=== PATIENT | female | born 1960 | race Caucasian/White ===

== ENCOUNTER 2017-03-03 17:35 | Inpatient (IN) | payer MEDICARE, OTHER ==
[2017-03-03] MEDS ORDERED: HYDROmorphone 1 MG/ML Syringe IVPUSH ONE (20:19)
[2017-03-03] MEDS ORDERED: Ondansetron 4 MG/2 ML SDV IVPUSH ONE (20:20)
[2017-03-03] MEDS ORDERED: Sodium Chloride 0.9% 1,000 ML IV SCH (20:30)
[2017-03-03] MEDS ORDERED: Morphine 4 MG/ML Syringe IVPUSH ONE ×2 (20:50→22:00)
--- NOTE | 2017-03-03 21:50 | EDM.PDOC ---
ED HPI GENERAL MEDICAL PROBLEM - General Chief Complaint: Gastrointestinal Problem Stated Complaint: VOMITING Time Seen by Provider: 03/03/17 18:40 Source of Information: Reports: Patient History Limitations: Reports: No Limitations - History of Present Illness INITIAL COMMENTS - FREE TEXT/NARRATIVE: History of present illness: [56-year-old female is presenting with abdominal pain nausea vomiting. This been going on for several days. She apparently has had a history of pancreatitis and states she feels like she is having a flareup of pancreatitis. He gives a history of having a Addison-en-Y and 1992 and a subsequent limb procedure from that Addison-en-Y and then he limb takedown in 2002. Since then she states she's not had any trouble as far as that surgery. She's had no fevers or chills cough cold symptoms no chest pain or shortness of breath no lower extremity pain and no dysuria.] Review of systems: As per history of present illness and below otherwise all systems reviewed and negative. Past medical history: As per history of present illness and as reviewed below otherwise noncontributory. Surgical history: As per history of present illness and as reviewed below otherwise noncontributory. Social history: No reported history of drug or alcohol abuse. Family history: As per history of present illness and as reviewed below otherwise noncontributory. Physical exam: HEENT: Atraumatic, normocephalic, pupils reactive, negative for conjunctival pallor or scleral icterus, mucous membranes moist, throat clear, neck supple, nontender, trachea midline. Lungs: Clear to auscultation, breath sounds equal bilaterally, chest nontender. Heart: S1S2, regular, negative for clicks, rubs, or JVD. Abdomen: She has tenderness to palpation across the epigastrium with hypoactive bowel sounds to masses appreciated Pelvis: Stable nontender. Genitourinary: Deferred. Rectal: Deferred. Extremities: Atraumatic, negative for cords or calf pain. Neurovascular unremarkable. Neuro: Awake, alert, oriented. Cranial nerves II through XII unremarkable. Cerebellum unremarkable. Motor and sensory unremarkable throughout. Exam nonfocal. Diagnostics: [CBC complete metabolic panel lipase and amylase and UA are unremarkable. Abdominal CT is showing a probable obstruction of one of the limbs from her Addison -en-Y.] Therapeutics: [She's received IV fluids IV morphine and IV Zofran] Impression: [Obstruction of limb of Addison-en-Y] Plan: [I spoke with Dr. Jordon Christian patient will be admitted for IV fluids and NG suction [employer] pump and then we need to get records from [place] etc. from her prior surgeries so we know exactly what was done.] Definitive disposition and diagnosis as appropriate pending reevaluation and review of above. left abdomen Pain Score (Numeric/FACES): 8 - Related Data Allergies Allergy/AdvReac Type Severity Reaction Status Date / Time nabumetone [From Relafen] Allergy Severe Anaphylactic Verified 03/03/17 18:55 Shock diclofenac potassium Allergy Unknown Anaphylactic Verified 03/03/17 18:55 [From Cataflam] Shock duloxetine HCl Allergy Unknown Anaphylactic Verified 03/03/17 18:55 [From Cymbalta] Shock hydromorphone HCl Allergy Unknown Anaphylactic Verified 03/03/17 18:55 [From Dilaudid] Shock prochlorperazine edisylate Allergy Unknown Anaphylactic Verified 03/03/17 18:55 [From Compazine] Shock prochlorperazine maleate Allergy Unknown Anaphylactic Verified 03/03/17 18:55 [From Compazine] Shock rofecoxib [From Vioxx] Allergy Unknown Anaphylactic Verified 03/03/17 18:55 Shock diclofenac [From Cataflam] Allergy Hives Verified 03/03/17 18:55 peach Allergy Vomiting Verified 03/03/17 18:55 Home Meds: Home Meds Aspirin 325 mg PO DAILY 03/20/13 [History] Carvedilol [Coreg] 12.5 mg PO BID 03/20/13 [History] Cyanocobalamin (Vitamin B-12) [Vitamin B-12] 1 ml IM ASDIRECTED 03/20/13 [ History] Cyclobenzaprine HCl [Flexeril] 10 mg PO TID 03/20/13 [History] Gabapentin [Gralise] 900 mg PO TID 03/20/13 [History] Levothyroxine 75 mcg PO DAILY 03/20/13 [History] Lidocaine [Lidoderm] 1 patch TOP Q12H 03/20/13 [History] Lisinopril [Prinivil] 2.5 mg PO BID 03/20/13 [History] Montelukast [Singulair] 10 mg PO DAILY 03/20/13 [History] Ranitidine [Zantac] 75 mg PO BID 03/20/13 [History] Sertraline [Zoloft] 100 mg PO BEDTIME 03/20/13 [History] Ursodiol [Actigal] 100 mg PO BID 03/20/13 [History] hydrOXYzine Pamoate [Vistaril] 50 mg PO Q4HR 03/20/13 [History] Cholecalciferol (Vitamin D3) [Vitamin D3] 1,000 units PO BID 04/28/16 [History] Ergocalciferol (Vitamin D2) [Vitamin D2] 50,000 units PO ASDIRECTED 04/28/16 [ History] Fluticasone/Salmeterol [Advair 250-50 Diskus] 1 puff INH BID 04/28/16 [History] Hydrocodone/Acetaminophen [Hydrocodon-Acetaminophen 5-325] 0.5 tab PO BID [History] Vitamin A Palmitate [Aquasol A] 100,000 unit IM ASDIRECTED 03/03/17 [History] traMADol [Ultram] 50 mg PO QID PRN 03/03/17 [History] Past Medical History HEENT History: Reports: Allergic Rhinitis, Impaired Vision Cardiovascular History: Reports: Cardiomyopathy Respiratory History: Reports: Asthma Gastrointestinal History: Reports: Bowel Obstruction, Pancreatitis Other Gastrointestinal History: crohns Genitourinary History: Reports: None CHANNELER History: Reports: , Spontaneous Musculoskeletal History: Reports: Back Pain, Chronic, Fibromyalgia Neurological History: Reports: Concussion, Migraines Psychiatric History: Reports: Anxiety, Depression Endocrine/Metabolic History: Reports: Hypothyroidism Hematologic History: Reports: B12 Deficiency Immunologic History: Reports: None Oncologic (Cancer) History: Reports: None Dermatologic History: Reports: Other (See Below) Other Dermatologic History: itchy, dry skin - Infectious Disease History Infectious Disease History: Reports: Chicken Pox - Past Surgical History HEENT Surgical History: Reports: Other (See Below) Other HEENT Surgeries/Procedures: trabeculectomy bilateral eyes for glaucoma. brow and eye lift Cardiovascular Surgical History: Reports: None Respiratory Surgical History: Reports: None GI Surgical History: Reports: Bariatric Procedure, Cholecystectomy, Colonoscopy , Hernia Repair/Other Female Surgical History: Reports: None Endocrine Surgical History: Reports: None Neurological Surgical History: Reports: Spinal Fusion, Other (See Below) Other Neurological Surgeries/Procedures: L1-S1 Musculoskeletal Surgical History: Reports: None Oncologic Surgical History: Reports: None Dermatological Surgical History: Reports: None Social & Family History - Tobacco Use Smoking Status *Q: Never Smoker Years of Tobacco use: 3 Used Tobacco, but Quit: Yes Month Tobacco Last Used: Second Hand Smoke Exposure: No - Caffeine Use Caffeine Use: Reports: Coffee, Soda - Alcohol Use Days Per Week of Alcohol Use: 0 - Recreational Drug Use Recreational Drug Use: No ED ROS GENERAL - Review of Systems Review Of Systems: ROS reveals no pertinent complaints other than HPI. ED EXAM, GENERAL - Physical Exam Exam: See Below Course - Vital Signs Last Recorded V/S: Last Vital Signs Temp 36.7 C 03/03/17 21:42 Pulse 68 03/03/17 21:42 Resp 17 03/03/17 21:42 BP 150/86 H 03/03/17 21:42 Pulse Ox 98 03/03/17 21:42 - Orders/Labs/Meds Orders: Active Orders 24 hr Category Date Time Status Abdomen Pelvis wo Cont [CT] Stat Exams 03/03/17 20:18 Taken Sodium Chloride 0.9% [Normal Saline] 1,000 ml Med 03/03/17 20:30 Active IV ASDIRECTED Medication Orders Sodium Chloride (Normal Saline) 1,000 mls @ 500 mls/hr IV ASDIRECTED [facility]ONT Last Admin: 03/03/17 20:39 Dose: 500 mls/hr Labs: Laboratory Tests 03/03/17 03/03/17 03/03/17 Range/Units 20:29 20:29 20:29 WBC 5.2 (4.5-11.0) K/uL RBC 4.17 (3.30-5.50) M/uL Hgb 11.7 L (12.0-15.0) g/dL Hct 36.9 (36.0-48.0) % MCV 89 (80-98) fL MCH 28 (27-31) pg MCHC 32 (32-36) % Plt Count 237 (150-400) K/uL Neut % (Auto) 46 (36-66) % Lymph % (Auto) 43 (24-44) % [place] % (Auto) 8 H (2-6) % Eos % (Auto) 2 (2-4) % Baso % (Auto) 1 (0-1) % Sodium 143 (140-148) mmol/L Potassium 3.9 (3.6-5.2) mmol/L Chloride 108 (100-108) mmol/L Carbon Dioxide 30 (21-32) mmol/L Anion Gap 5.1 (5.0-14.0) mmol/L BUN 12 (7-18) mg/dL Creatinine 0.9 (0.6-1.0) mg/dL Est Cr Clr Drug Dosing 74.68 mL/min Estimated GFR (MDRD) > 60 (>60) Glucose 114 H (74-106) mg/dL Lactic Acid 1.0 (0.4-2.0) mmol/L Calcium 8.2 L (8.5-10.1) mg/dL Total Bilirubin 0.6 (0.2-1.0) mg/dL AST 36 (15-37) U/L ALT 41 (12-78) U/L Alkaline Phosphatase 116 (46-116) U/L C-Reactive Protein 0.03 (0.0-0.3) mg/dL Total Protein 6.8 (6.4-8.2) g/dL Albumin 3.0 L (3.4-5.0) g/dL Globulin 3.8 H (2.3-3.5) g/dL Albumin/Globulin Ratio 0.8 L (1.2-2.2) Amylase 107 (25-115) U/L Lipase 131 (73-393) U/L Urine Color Urine Appearance Urine pH (4.5-8.0) Ur Specific [place] (1.008-1.030) Urine Protein (NEGATIVE) mg/dL Urine Glucose (UA) (NEGATIVE) mg/dL Urine Ketones (NEGATIVE) mg/dL Urine Occult Blood (NEGATIVE) Urine Nitrite (NEGATIVE) Urine Bilirubin (NEGATIVE) Urine Urobilinogen (NORMAL) mg/dL Ur Leukocyte Esterase (NEGATIVE) Urine RBC (0-5) Urine WBC (0-5) Ur Epithelial Cells Amorphous Sediment Urine Bacteria Urine Mucus 03/03/17 Range/Units 20:31 WBC (4.5-11.0) K/uL RBC (3.30-5.50) M/uL Hgb (12.0-15.0) g/dL Hct (36.0-48.0) % MCV (80-98) fL MCH (27-31) pg MCHC (32-36) % Plt Count (150-400) K/uL Neut % (Auto) (36-66) % Lymph % (Auto) (24-44) % [place] % (Auto) (2-6) % Eos % (Auto) (2-4) % Baso % (Auto) (0-1) % Sodium (140-148) mmol/L Potassium (3.6-5.2) mmol/L Chloride (100-108) mmol/L Carbon Dioxide (21-32) mmol/L Anion Gap (5.0-14.0) mmol/L BUN (7-18) mg/dL Creatinine (0.6-1.0) mg/dL Est Cr Clr Drug Dosing mL/min Estimated GFR (MDRD) (>60) Glucose (74-106) mg/dL Lactic Acid (0.4-2.0) mmol/L Calcium (8.5-10.1) mg/dL Total Bilirubin (0.2-1.0) mg/dL AST (15-37) U/L ALT (12-78) U/L Alkaline Phosphatase (46-116) U/L C-Reactive Protein (0.0-0.3) mg/dL Total Protein (6.4-8.2) g/dL Albumin (3.4-5.0) g/dL Globulin (2.3-3.5) g/dL Albumin/Globulin Ratio (1.2-2.2) Amylase (25-115) U/L Lipase (73-393) U/L Urine Color Yellow Urine Appearance Clear Urine pH 6.0 (4.5-8.0) Ur Specific [place] 1.015 (1.008-1.030) Urine Protein Negative (NEGATIVE) mg/dL Urine Glucose (UA) Normal (NEGATIVE) mg/dL Urine Ketones Negative (NEGATIVE) mg/dL Urine Occult Blood Negative (NEGATIVE) Urine Nitrite Negative (NEGATIVE) Urine Bilirubin Negative (NEGATIVE) Urine Urobilinogen Normal (NORMAL) mg/dL Ur Leukocyte Esterase Negative (NEGATIVE) Urine RBC 0-5 (0-5) Urine WBC 0-5 (0-5) Ur Epithelial Cells Few Amorphous Sediment Few Urine Bacteria Not seen Urine Mucus Few Meds: Medications Generic Name Dose Route Start Last Admin Trade Name Freq PRN Reason Stop Dose Admin Sodium Chloride 1,000 mls @ 500 mls/hr 03/03/17 20:30 03/03/17 20:39 Normal Saline IV 500 mls/hr ASDIRECTED [facility] Administration Discontinued Medications Generic Name Dose Route Start Last Admin Trade Name Xiang PRN Reason Stop Dose Admin Hydromorphone HCl 1 mg 03/03/17 20:19 03/03/17 21:08 Dilaudid IVPUSH 03/03/17 20:20 Not Given ONETIME ONE Morphine Sulfate 4 mg 03/03/17 20:50 03/03/17 21:09 Morphine IVPUSH 03/03/17 20:51 4 mg ONETIME ONE Administration Ondansetron HCl 4 mg 03/03/17 20:20 03/03/17 20:41 Zofran IVPUSH 03/03/17 20:21 4 mg ONETIME ONE Administration Departure - Departure Time of Disposition: 21:48 Disposition: Admitted As Inpatient 68 Condition: Fair Clinical Impression: History of Addison-en-Y gastric bypass Bowel obstruction Qualifiers: Intestinal obstruction type: unspecified Qualified Code(s): K56.60 - Unspecified intestinal obstruction - Discharge Information Referrals: PCP,None [Primary Care Provider] - - My Orders Last 24 Hours: My Active Orders 03/03/17 20:18 Abdomen Pelvis wo Cont [CT] Stat 03/03/17 20:30 Sodium Chloride 0.9% [Normal Saline] 1,000 ml IV ASDIRECTED - Assessment/Plan Last 24 Hours: My Active Orders 03/03/17 20:18 Abdomen Pelvis wo Cont [CT] Stat 03/03/17 20:30 Sodium Chloride 0.9% [Normal Saline] 1,000 ml IV ASDIRECTED
[2017-03-03] MEDS ORDERED: Morphine PF 150 MG/30 ML PCA Syringe IV PRN (22:01)
[2017-03-03] MEDS ORDERED: Naloxone 0.4 MG/ML SDV IVPUSH PRN (22:01)
[2017-03-03] MEDS: Dextrose 5%-Lactated Ringers 1,000 ML IV SCH (23:42)
[2017-03-04] MEDS: Dextrose 5%-Lactated Ringers 1,000 ML IV SCH ×2 (00:36→07:53)
[2017-03-04] MEDS: Ondansetron 4 MG/2 ML SDV IV PRN ×2 (05:56→12:34)
[2017-03-04] MEDS: Metoclopramide 10 MG/2 ML SDV IVPUSH SCH ×3 (09:12→21:19)
[2017-03-04] MEDS: Carvedilol 12.5 MG Tab PO SCH ×2 (11:34→21:11)
[2017-03-04] MEDS: Formoterol/Mometasone 200-5 MCG 8.8 GM Inhaler IH SCH ×2 (11:35→21:10)
[2017-03-04] MEDS: Pantoprazole 40 MG Vial IV SCH (11:36)
[2017-03-04] MEDS: Lisinopril 2.5 MG Tab PO SCH ×2 (11:36→21:15)
[2017-03-04] MEDS: cycloSPORINE Ophth Drops U/D Box of 30 EYEBOTH SCH ×2 (11:36→21:16)
[2017-03-04] MEDS: Gabapentin 300 MG Cap PO SCH ×3 (12:27→21:11)
[2017-03-04] MEDS: Levothyroxine 75 MCG Tab PO SCH (12:27)
[2017-03-04] MEDS: Cyclobenzaprine 10 MG Tab PO SCH ×3 (12:28→21:15)
[2017-03-04] MEDS: Lidocaine 5% 700 MG Patch TRDERM SCH (14:57)
[2017-03-04] MEDS: Montelukast 5 MG Tab.Chew PO SCH (21:15)
[2017-03-04] MEDS: traZODone 50 MG Tab PO SCH (21:16)
[2017-03-04] MEDS: Sertraline 50 MG Tab PO SCH (21:16)
[2017-03-05] MEDS: Dextrose 5%-Lactated Ringers 1,000 ML IV SCH ×3 (00:53→21:38)
[2017-03-05] MEDS: Metoclopramide 10 MG/2 ML SDV IVPUSH SCH ×3 (04:16→16:47)
[2017-03-05] MEDS ORDERED: fentaNYL 25 MCG/HR Transdermal Patch TRDERM SCH (07:00)
[2017-03-05] MEDS ORDERED: Magnesium Sulfate/Water 2 GM in Premix Bag 1 BAG IV SCH (08:00)
[2017-03-05] MEDS: Levothyroxine 75 MCG Tab PO SCH (08:10)
[2017-03-05] MEDS: Carvedilol 12.5 MG Tab PO SCH ×2 (08:11→21:36)
[2017-03-05] MEDS: Cyclobenzaprine 10 MG Tab PO SCH ×3 (08:23→21:36)
[2017-03-05] MEDS: Gabapentin 300 MG Cap PO SCH ×3 (08:24→21:34)
[2017-03-05] MEDS: VERIFY FENTANYL PATCH TOP SCH ×2 (08:25→21:33)
[2017-03-05] MEDS: Lisinopril 2.5 MG Tab PO SCH ×2 (08:25→21:36)
[2017-03-05] MEDS: cycloSPORINE Ophth Drops U/D Box of 30 EYEBOTH SCH ×2 (08:26→21:35)
--- NOTE | 2017-03-05 08:28 | PCM.HP ---
H&P History of Present Illness - General Date of Service: 03/05/17 Admit Problem/Dx: Admission Diagnosis/Problem Admission Diagnosis/Problem Abdominal pain Source of Information: Patient History Limitations: Reports: No Limitations - History of Present Illness Onset of Symptoms: Reports: Today Symptom Onset Date: 03/02/17 Duration of Symptoms: Reports: Day(s): (Postprandial pain on going intermittent for several weeks until 03/03/17 when the pain would not resolve. ), Intermittent Location: Reports: Abdomen Quality: Reports: Ache, Throbbing Severity: Severe Improves with: Reports: Medication Worsens with: Reports: Eating Context: Reports: Sick Contact Associated Symptoms: Reports: Nausea/Vomiting left abdomen Pain Score (Numeric/FACES): 3 (with pain medication ) - Related Data Allergies/Adverse Reactions: Allergies Allergy/AdvReac Type Severity Reaction Status Date / Time nabumetone [From Relafen] Allergy Severe Anaphylactic Verified 03/03/17 18:55 Shock diclofenac potassium Allergy Unknown Anaphylactic Verified 03/03/17 18:55 [From Cataflam] Shock duloxetine HCl Allergy Unknown Anaphylactic Verified 03/03/17 18:55 [From Cymbalta] Shock hydromorphone HCl Allergy Unknown Anaphylactic Verified 03/03/17 18:55 [From Dilaudid] Shock prochlorperazine edisylate Allergy Unknown Anaphylactic Verified 03/03/17 18:55 [From Compazine] Shock prochlorperazine maleate Allergy Unknown Anaphylactic Verified 03/03/17 18:55 [From Compazine] Shock rofecoxib [From Vioxx] Allergy Unknown Anaphylactic Verified 03/03/17 18:55 Shock diclofenac [From Cataflam] Allergy Hives Verified 03/03/17 18:55 peach Allergy Vomiting Verified 03/03/17 18:55 Home Medications: Home Meds Aspirin 325 mg PO DAILY 03/20/13 [History] Carvedilol [Coreg] 12.5 mg PO BID 03/20/13 [History] Cyanocobalamin (Vitamin B-12) [Vitamin B-12] 1 ml IM ASDIRECTED 03/20/13 [ History] Cyclobenzaprine HCl [Flexeril] 10 mg PO TID 03/20/13 [History] Gabapentin [Gralise] 900 mg PO TID 03/20/13 [History] Levothyroxine 75 mcg PO DAILY 03/20/13 [History] Lidocaine [Lidoderm] 1 patch TOP Q12H 03/20/13 [History] Lisinopril [Prinivil] 2.5 mg PO BID 03/20/13 [History] Montelukast [Singulair] 10 mg PO DAILY 03/20/13 [History] Ranitidine [Zantac] 75 mg PO BID 03/20/13 [History] Sertraline [Zoloft] 100 mg PO BEDTIME 03/20/13 [History] Ursodiol [Actigal] 100 mg PO BID 03/20/13 [History] hydrOXYzine Pamoate [Vistaril] 50 mg PO Q4HR 03/20/13 [History] Cholecalciferol (Vitamin D3) [Vitamin D3] 1,000 units PO BID 04/28/16 [History] Ergocalciferol (Vitamin D2) [Vitamin D2] 50,000 units PO ASDIRECTED 04/28/16 [ History] Fluticasone/Salmeterol [Advair 250-50 Diskus] 1 puff INH BID 04/28/16 [History] Hydrocodone/Acetaminophen [Hydrocodon-Acetaminophen 5-325] 0.5 tab PO BID [History] Vitamin A Palmitate [Aquasol A] 100,000 unit IM ASDIRECTED 03/03/17 [History] traMADol [Ultram] 50 mg PO QID PRN 03/03/17 [History] Albuterol [Proventil HFA] 2 puff INH BID PRN 03/04/17 [History] Ascorbic Acid [Vitamin C] 1,000 mg PO DAILY 03/04/17 [History] Calcium Carbonate/Vitamin D3 [Os-Uvaldo 500+D] 1 each PO TID 03/04/17 [History] Ferrous Sulfate [Iron] 325 mg PO BID 03/04/17 [History] Fluticasone Propionate [Flonase] 1 spray NASBOTH DAILY 03/04/17 [History] Furosemide [Lasix] 20 - 40 mg PO DAILY PRN 03/04/17 [History] Nitroglycerin 0.4 mg SL ASDIRECTED PRN 03/04/17 [History] Sennosides [Senokot] 8.6 mg PO BID 03/04/17 [History] cycloSPORINE [Restasis] 1 drop EYEBOTH BID 03/04/17 [History] traZODone 50 mg PO BEDTIME PRN 03/04/17 [History] Past Medical History HEENT History: Reports: Allergic Rhinitis, Impaired Vision Cardiovascular History: Reports: Cardiomyopathy Respiratory History: Reports: Asthma Gastrointestinal History: Reports: Bowel Obstruction, Pancreatitis Other Gastrointestinal History: crohns Genitourinary History: Reports: None 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: , 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 Musculoskeletal History: Reports: Back Pain, Chronic, Fibromyalgia, RA Neurological History: Reports: Concussion, Migraines, Reflex Sympathetic Dystrophy Psychiatric History: Reports: Anxiety, Depression Endocrine/Metabolic History: Reports: Hypothyroidism Hematologic History: Reports: B12 Deficiency Immunologic History: Reports: None Oncologic (Cancer) History: Reports: None Dermatologic History: Reports: Other (See Below) Other Dermatologic History: itchy, dry skin - Infectious Disease History Infectious Disease History: Reports: Chicken Pox - Past Surgical History HEENT Surgical History: Reports: Other (See Below) Other HEENT Surgeries/Procedures: trabeculectomy bilateral eyes for glaucoma. brow and eye lift Cardiovascular Surgical History: Reports: None Respiratory Surgical History: Reports: None GI Surgical History: Reports: Bariatric Procedure, Cholecystectomy, Colonoscopy , Hernia Repair/Other Female Surgical History: Reports: None Endocrine Surgical History: Reports: None Neurological Surgical History: Reports: Spinal Fusion, Other (See Below) Other Neurological Surgeries/Procedures: L1-S1 Musculoskeletal Surgical History: Reports: None Oncologic Surgical History: Reports: None Dermatological Surgical History: Reports: None Social & Family History - Family History Family Medical History: Noncontributory - Tobacco Use Smoking Status *Q: Never Smoker Years of Tobacco use: 3 Used Tobacco, but Quit: Yes Month Tobacco Last Used: Second Hand Smoke Exposure: No - Caffeine Use Caffeine Use: Reports: Coffee, Soda Caffeine Use Comment: drinks 2-6 cans of diet coke daily - Alcohol Use Days Per Week of Alcohol Use: 0 - Recreational Drug Use Recreational Drug Use: No H&P Review of Systems - Review of Systems: Review Of Systems: See Below General: Reports: Weakness, Decreased Appetite HEENT: Reports: No Symptoms Pulmonary: Reports: No Symptoms Cardiovascular: Reports: No Symptoms Gastrointestinal: Reports: Abdominal Pain, Decreased Appetite, Nausea Genitourinary: Reports: No Symptoms Musculoskeletal: Reports: No Symptoms Skin: Reports: No Symptoms Psychiatric: Reports: No Symptoms Neurological: Reports: No Symptoms Hematologic/Lymphatic: Reports: No Symptoms Immunologic: Reports: No Symptoms Exam - Exam Exam: See Below - Vital Signs Vital Signs: Last Vital Signs Temp 97.4 F 03/05/17 07:00 Pulse 56 L 03/05/17 03:00 Resp 18 03/05/17 07:00 BP 104/47 L 03/05/17 07:00 Pulse Ox 99 03/05/17 07:09 Weight: 190 lb 8 oz - Exam Quality Assessment: DVT Prophylaxis General: Mild Distress, Sedated HEENT: Conjunctiva Clear, Hearing Intact, Mucosa Moist & [place] Neck: Supple, Trachea Midline Lungs: Clear to Auscultation, Normal Respiratory Effort Cardiovascular: Regular Rate, Regular Rhythm GI/Abdominal Exam: Normal Bowel Sounds, Soft, Tender (in left upper and mid abdominal quadrants ) (Female) Exam: Deferred Rectal (Female) Exam: Deferred Back Exam: Normal Inspection Extremities: Normal Inspection Skin: Warm, Dry, Intact Neurological: Cranial Nerves Intact, Reflexes Equal Bilateral Neuro Extensive - Mental Status: Other (sleepy due to pain medication. Arouses easily and answers questions appropriately ) Neuro Extensive - Motor, Sensory, Reflexes: CN II-XII Intact Psychiatric: Labile Mood - Patient Data Lab Results Last 24 hrs: Laboratory Results - last 24 hr 03/05/17 03/05/17 03/05/17 Range/Units 04:10 04:10 04:10 WBC 5.2 (4.5-11.0) K/uL RBC 3.90 (3.30-5.50) M/uL Hgb 10.9 L (12.0-15.0) g/dL Hct 35.4 L (36.0-48.0) % MCV 91 (80-98) fL MCH 28 (27-31) pg MCHC 31 L (32-36) % Plt Count 213 (150-400) K/uL Sodium 138 L (140-148) mmol/L Potassium 4.1 (3.6-5.2) mmol/L Chloride 105 (100-108) mmol/L Carbon Dioxide 30 (21-32) mmol/L Anion Gap 7.1 (5.0-14.0) mmol/L BUN 9 (7-18) mg/dL Creatinine 0.9 (0.6-1.0) mg/dL Est Cr Clr Drug Dosing 74.68 mL/min Estimated GFR (MDRD) > 60 (>60) Glucose 104 (74-106) mg/dL Hemoglobin A1c 5.5 (4.5-6.2) % Calcium 8.0 L (8.5-10.1) mg/dL Phosphorus 5.0 H (2.5-4.9) mg/dL Magnesium 1.5 L (1.8-2.4) mg/dL Ferritin 14 (8-388) ng/ml Total Bilirubin 0.9 (0.2-1.0) mg/dL AST 23 (15-37) U/L ALT 33 (12-78) U/L Alkaline Phosphatase 124 H (46-116) U/L Total Protein 6.1 L (6.4-8.2) g/dL Albumin 2.8 L (3.4-5.0) g/dL Globulin 3.3 (2.3-3.5) g/dL Albumin/Globulin Ratio 0.9 L (1.2-2.2) Vitamin B12 264 (193-986) pg/ml Folate 17.2 (8.6-58.9) ng/ml TSH, Ultra Sensitive 2.225 (0.358-3.740) uIU/mL Result Diagrams: 03/05/17 04:10 03/05/17 04:10 *Q Meaningful Use (ADM) - VTE *Q VTE Criteria *Q: - Stroke *Q Stroke Criteria *Q: - AMI *Q AMI Criteria *Q: - Problem List (1) Low ferritin level SNOMED Code(s): 158538062 ICD Code: R79.0 - ABNORMAL LEVEL OF BLOOD MINERAL Status: Acute Current Visit: Yes (2) History of Addison-en-Y gastric bypass SNOMED Code(s): 898697934, 252713873 ICD Code: Z98.84 - BARIATRIC SURGERY STATUS Status: Acute Current Visit: Yes (3) Bowel obstruction SNOMED Code(s): 88750815 ICD Code: K56.60 - UNSPECIFIED INTESTINAL OBSTRUCTION Status: Acute Current Visit: Yes Qualifiers: Intestinal obstruction type: unspecified Qualified Code(s): K56.60 - Unspecified intestinal obstruction Problem List Initiated/Reviewed/Updated: Yes Orders Last 24hrs: Active Orders 24 hr Category Date Time Status Verify Patient Consent Obtain [RC] ASDIRECTED Care 03/04/17 10:28 Active Clear Liquid Diet [DIET] Diet 03/04/17 Lunch Active Nothing per Oral After Midnight Diet [DIET] Diet 03/05/17 Breakfast Active VITAMIN B-1, THIAMINE, PLASMA [REF] Routine Lab 03/05/17 04:10 Received Albuterol/Ipratropium [DuoNeb 3.0-0.5 MG/3 ML] Med 03/05/17 14:00 Once 3 ml INH ONCALL ONE Carvedilol [Coreg] Med 03/04/17 11:00 Active 12.5 mg PO BID Cyanocobalamin (Vitamin B12) [Vitamin B12] Med 03/05/17 09:00 Once 1,000 mcg IM ONETIME ONE Cyclobenzaprine [Flexeril] Med 03/04/17 12:15 Active 10 mg PO TID Gabapentin [Neurontin] Med 03/04/17 12:15 Active 900 mg PO TID Iron Sucrose Complex [Venofer] 500 mg Med 03/06/17 06:00 Active Sodium Chloride 0.9% [Normal Saline] 250 ml IV ONETIME Iron Sucrose Complex [Venofer] 500 mg Med 03/07/17 06:00 Active Sodium Chloride 0.9% [Normal Saline] 250 ml IV ONETIME Levothyroxine Med 03/04/17 12:15 Active 75 mcg PO ACBREAKFAST Lidocaine 5% [Lidoderm 5%] Med 03/04/17 14:00 Active 700 mg TRDERM Q24H Lisinopril [Prinivil] Med 03/04/17 11:00 Active 2.5 mg PO BID Magnesium Sulfate [Magnesium Sulfate 50%] 2 gm Med 03/05/17 10:00 Active Sodium Chloride 0.9% [Normal Saline] 50 ml IV Q6H Metoclopramide [Reglan] Med 03/04/17 10:00 Active 10 mg IVPUSH Q6H Mometasone/Formoterol [Dulera 200-5 MCG] Med 03/04/17 11:00 Active 1 puff IH BIDRT Montelukast [Singulair] Med 03/04/17 21:00 Active 10 mg PO BEDTIME Non-Formulary Medication [NF Drug] Med 03/05/17 09:00 Active 0 each TOP BID Pantoprazole [ProTONIX IV] Med 03/04/17 11:00 Active 40 mg IV Q24H Remove Patch Med 03/05/17 02:00 Active 1 ea TRDERM Q24H Sertraline [Zoloft] Med 03/04/17 21:00 Active 100 mg PO BEDTIME cefOXitin [Mefoxin] 2 gm Med 03/05/17 14:00 Active Sodium Chloride 0.9% [Normal Saline] 50 ml IV ONCALL cycloSPORINE [Restasis] Med 03/04/17 11:00 Active 0 each EYEBOTH BID fentaNYL [Duragesic] Med 03/05/17 07:00 Active 25 mcg TRDERM Q72H traZODone Med 03/04/17 21:00 Active 50 mg PO BEDTIME Medication Orders Albuterol/Ipratropium (Duoneb 3.0-0.5 Mg/3 Ml) 3 ml INH ONCALL ONE Stop: 03/05/17 14:01 Carvedilol (Coreg) 12.5 mg PO BID ON LICENSE OF [facility] Last Admin: 03/04/17 21:11 Dose: 12.5 mg Admin: 03/04/17 11:34 Dose: 12.5 mg Cyanocobalamin (Vitamin B12) 1,000 mcg IM ONETIME ONE Stop: 03/05/17 09:01 Cyclobenzaprine HCl (Flexeril) 10 mg PO TID ON LICENSE OF [facility] Last Admin: 03/04/17 21:15 Dose: 10 mg Admin: 03/04/17 17:08 Dose: 10 mg Admin: 03/04/17 12:28 Dose: 10 mg Cyclosporine (Restasis) 0 each EYEBOTH BID ON LICENSE OF [facility] Last Admin: 03/04/17 21:16 Dose: 1 drop Admin: 03/04/17 11:36 Dose: 1 drop Fentanyl (Duragesic) 25 mcg TRDERM Q72H ON LICENSE OF [facility] Stop: 03/08/17 05:00 Gabapentin (Neurontin) 900 mg PO TID ON LICENSE OF [facility] Last Admin: 03/04/17 21:11 Dose: 900 mg Admin: 03/04/17 17:09 Dose: 900 mg Admin: 03/04/17 12:27 Dose: 900 mg Dextrose/Lactated Ringer's (Dextrose 5%-Lactated Ringers) 1,000 mls @ 125 mls/ hr IV ASDIRECTED ON LICENSE OF [facility] Last Admin: 03/05/17 00:53 Dose: 125 mls/hr Infusion: 03/04/17 15:53 Dose: 125 mls/hr Admin: 03/04/17 07:53 Dose: 125 mls/hr Infusion: 03/04/17 07:53 Dose: 125 mls/hr Admin: 03/04/17 00:36 Dose: 125 mls/hr Infusion: 03/04/17 00:36 Dose: 125 mls/hr Admin: 03/03/17 23:42 Dose: 125 mls/hr Cefoxitin Sodium 2 gm/ Sodium (Chloride) 50 mls @ 100 mls/hr IV ONCALL ONE Stop: 03/05/17 14:29 Iron Sucrose 500 mg/ Sodium (Chloride) 275 mls @ 68 mls/hr IV ONETIME ONE Stop: 03/06/17 10:02 Iron Sucrose 500 mg/ Sodium (Chloride) 275 mls @ 68 mls/hr IV ONETIME ONE Stop: 03/07/17 10:02 Magnesium Sulfate 2 gm/ Sodium (Chloride) 54 mls @ 27 mls/hr IV Q6H ON LICENSE OF [facility] Stop: 03/08/17 05:59 Levothyroxine Sodium (Levothyroxine) 75 mcg PO ACBREAKFAST ON LICENSE OF [facility] Last Admin: 03/04/17 12:27 Dose: 75 mcg Lidocaine (Lidoderm 5%) 700 mg TRDERM Q24H ON LICENSE OF [facility] Last Admin: 03/04/17 14:57 Dose: 700 mg Lisinopril (Prinivil) 2.5 mg PO BID ON LICENSE OF [facility] Last Admin: 03/04/17 21:15 Dose: 2.5 mg Admin: 03/04/17 11:36 Dose: 2.5 mg Metoclopramide HCl (Reglan) 10 mg IVPUSH Q6H ON LICENSE OF [facility] Last Admin: 03/05/17 04:16 Dose: 10 mg Admin: 03/04/17 21:19 Dose: 10 mg Admin: 03/04/17 17:09 Dose: 10 mg Admin: 03/04/17 09:12 Dose: 10 mg Miscellaneous Information (Remove Patch) 1 ea TRDERM Q24H ON LICENSE OF [facility] Last Admin: 03/05/17 02:58 Dose: Mometasone Furoate/Formoterol Fumar (Dulera 200-5 Mcg) 1 puff IH BIDRT ON LICENSE OF [facility] Last Admin: 03/04/17 21:10 Dose: 1 puff Admin: 03/04/17 11:35 Dose: 1 puff Montelukast Sodium (Singulair) 10 mg PO BEDTIME [facility] Last Admin: 03/04/17 21:15 Dose: 10 mg Morphine Sulfate (Morphine Tankman 150 Mg In 30 Ml) 0 mg IV ASDIRECTED PRN; Protocol PRN Reason: Pain Last Admin: 03/03/17 23:43 Dose: 150 mg Naloxone HCl (Narcan) 0.1 mg IV ASDIRECTED PRN PRN Reason: decreased respiratory rate Verify Fentanyl (Patch) 0 each TOP BID [facility] Ondansetron HCl (Zofran) 4 mg IV Q4H PRN PRN Reason: Nausea/Vomiting Last Admin: 03/04/17 12:34 Dose: 4 mg Admin: 03/04/17 05:56 Dose: 4 mg Pantoprazole Sodium (Protonix Iv) 40 mg IV Q24H [facility] Last Admin: 03/04/17 11:36 Dose: 40 mg Sertraline HCl (Zoloft) 100 mg PO BEDTIME ON LICENSE OF [facility] Last Admin: 03/04/17 21:16 Dose: 100 mg Trazodone HCl (Trazodone) 50 mg PO BEDTIME ON LICENSE OF [facility] Last Admin: 03/04/17 21:16 Dose: 50 mg Assessment/Plan Comment:: Plan: Scheduled for Laparotomy for Release of Small Bowel Obstruction and Possible Small Bowel Resection - General Anesthesia - Rinku Christian MD Rx Venofer 500 mg IV - 03/06/17 and 03/07/17 for low ferritin Remain NPO Orders to be written post operatively Martha Encinas 03/05/17
[2017-03-05] MEDS: Formoterol/Mometasone 200-5 MCG 8.8 GM Inhaler IH SCH ×2 (08:35→21:36)
[2017-03-05] MEDS ORDERED: Cyanocobalamin (Vitamin B12) 1,000 MCG/ML SDV IM ONE (09:00)
[2017-03-05] MEDS: Pantoprazole 40 MG Vial IV SCH (11:37)
[2017-03-05] MEDS ORDERED: Meropenem 500 MG SDV ONE (12:23)
[2017-03-05] MEDS: Albuterol/Ipratropium 3.0-0.5 MG/3 ML Neb Soln INH ONE ×2 (12:33→16:35)
[2017-03-05] MEDS ORDERED: Glycopyrrolate 0.2 MG/ML 5 ML MDV ONE (12:35)
[2017-03-05] MEDS ORDERED: Propofol 200 MG/20 ML SDV ONE (12:35)
[2017-03-05] MEDS ORDERED: Dexamethasone 4 MG/ML SDV ONE (12:35)
[2017-03-05] MEDS ORDERED: Rocuronium 50 MG/5 ML Vial ONE (12:35)
[2017-03-05] MEDS ORDERED: Ondansetron 4 MG/2 ML SDV ONE (12:35)
[2017-03-05] MEDS ORDERED: Neostigmine Methylsulfate 1 MG/ML 5 ML Syringe ONE (12:35)
[2017-03-05] MEDS: cefOXitin 2 GM in Sodium Chloride 0.9% 50 ML IV ONE ×2 (12:54→16:37)
[2017-03-05] MEDS ORDERED: Linezolid 200 MG/100 ML Bag IRR ONE (13:25)
[2017-03-05] MEDS ORDERED: Lactated Ringers 1,000 ML ONE (13:47)
[2017-03-05] MEDS ORDERED: Albuterol/Ipratropium 3.0-0.5 MG/3 ML Neb Soln INH PRN (16:44)
[2017-03-05] MEDS: Ondansetron 4 MG/2 ML SDV IV PRN (16:45)
[2017-03-05] MEDS: Lidocaine 5% 700 MG Patch TRDERM SCH (16:51)
[2017-03-05] MEDS ORDERED: Metoclopramide 10 MG/2 ML SDV IVPUSH PRN (17:00)
[2017-03-05] MEDS: Albuterol/Ipratropium 3.0-0.5 MG/3 ML Neb Soln INH SCH ×2 (18:51→21:29)
[2017-03-05] MEDS: cefOXitin 2 GM in Sodium Chloride 0.9% 50 ML IV SCH (19:37)
[2017-03-05] MEDS: Montelukast 5 MG Tab.Chew PO SCH (21:35)
[2017-03-05] MEDS: Sertraline 50 MG Tab PO SCH (21:38)
[2017-03-05] MEDS: traZODone 50 MG Tab PO SCH (21:38)
[2017-03-06] MEDS: cefOXitin 2 GM in Sodium Chloride 0.9% 50 ML IV SCH ×3 (00:43→12:35)
[2017-03-06] MEDS ORDERED: Lactated Ringers 500 ML IV SCH (01:30)
[2017-03-06] MEDS: Naloxone 0.4 MG/ML SDV IV PRN ×8 (01:32→06:00)
[2017-03-06] MEDS: Dextrose 5%-Lactated Ringers 1,000 ML IV SCH ×4 (03:23→21:37)
[2017-03-06] MEDS ORDERED: Iron Sucrose Complex 500 MG in Sodium Chloride 0.9% 250 ML IV ONE (06:00)
[2017-03-06] MEDS: Albuterol/Ipratropium 3.0-0.5 MG/3 ML Neb Soln INH SCH ×4 (07:29→21:38)
[2017-03-06] MEDS: Formoterol/Mometasone 200-5 MCG 8.8 GM Inhaler IH SCH ×2 (07:29→21:38)
[2017-03-06] MEDS ORDERED: Iohexol 647 MG/ML 50 ML SDV IVPUSH PRN (08:26)
[2017-03-06] MEDS: Gabapentin 300 MG Cap PO SCH ×3 (09:21→21:40)
[2017-03-06] MEDS: Levothyroxine 75 MCG Tab PO SCH (09:21)
[2017-03-06] MEDS: Lisinopril 2.5 MG Tab PO SCH ×2 (09:22→21:41)
[2017-03-06] MEDS: Carvedilol 12.5 MG Tab PO SCH ×2 (09:22→21:40)
[2017-03-06] MEDS: Cyclobenzaprine 10 MG Tab PO SCH ×3 (09:23→21:40)
[2017-03-06] MEDS: VERIFY FENTANYL PATCH TOP SCH (09:23)
[2017-03-06] MEDS: cycloSPORINE Ophth Drops U/D Box of 30 EYEBOTH SCH ×2 (09:24→21:37)
[2017-03-06] MEDS: Ondansetron 4 MG/2 ML SDV IV PRN (09:51)
[2017-03-06] MEDS: Pantoprazole 40 MG Vial IV SCH (10:16)
--- NOTE | 2017-03-06 10:26 | CR ---
Limited upper GI. Postsurgical changes gastric bypass. Contrast is near the distal clips in the pelvi s. No gross evidence for contrast leakage.
[2017-03-06] MEDS: Lidocaine 5% 700 MG Patch TRDERM SCH (14:12)
[2017-03-06] MEDS: Sertraline 50 MG Tab PO SCH (17:24)
[2017-03-06] MEDS: traZODone 50 MG Tab PO SCH (21:37)
[2017-03-06] MEDS: Montelukast 5 MG Tab.Chew PO SCH (21:38)
[2017-03-07] MEDS: Dextrose 5%-Lactated Ringers 1,000 ML IV SCH ×3 (03:22→21:10)
[2017-03-07] MEDS ORDERED: Iron Sucrose Complex 500 MG in Sodium Chloride 0.9% 250 ML IV ONE (06:00)
[2017-03-07] MEDS ORDERED: Meropenem 500 MG SDV ONE (06:47)
[2017-03-07] MEDS ORDERED: Bupivacaine 0.5% 50 ML MDV ONE (06:47)
[2017-03-07] MEDS ORDERED: Lidocaine 1% with EPINEPHrine 1:100,000 50 ML MDV ONE (06:48)
[2017-03-07] MEDS ORDERED: Propofol 200 MG/20 ML SDV ONE (06:56)
[2017-03-07] MEDS ORDERED: Midazolam 1 MG/ML 2 ML SDV ONE (06:56)
[2017-03-07] MEDS ORDERED: fentaNYL 100 MCG/2 ML SDV ONE (06:56)
--- NOTE | 2017-03-07 09:09 | PN ---
DATE OF SERVICE: 03/07/2017 SUBJECTIVE: Kamille is a 56-year-old female. She is n.p.o. today. She will be going down for delayed primary closure. Her vital signs have been stable. She has been less sleepy and has been ambulating. REVIEW OF SYSTEMS: Remainder of review of systems negative for any pertinent positives and negatives. OBJECTIVE: GENERAL: Kamille Cnoley is a 56-year-old female. She is alert and orientated. VITAL SIGNS: TPR 98, 71, 14, blood pressure 116/61. HEENT: Negative. NECK: Supple. HEART: Regular rate and rhythm. LUNGS: Clear. ABDOMEN: Dressings dry and intact. Abdominal binder is on. EXTREMITIES: Without peripheral edema. ASSESSMENT: Exploratory laparotomy with partial small bowel resection and lysis of adhesions. PLAN: Orders to be written after delayed primary closure. Her IV will be turned down to 100 mL per hour. Roy discontinue. She will start on step-3 gastric bypass diet. Magnesium 2 g IV q.6 hours x72 hours and then vitamin A injection may be given per her routine monthly order. Good pulmonary toilet encouraged. We will evaluate p.r.n. or in a.m. Martha Hopkins PA-C /[id number]
[2017-03-07] MEDS: Formoterol/Mometasone 200-5 MCG 8.8 GM Inhaler IH SCH ×2 (09:16→21:32)
[2017-03-07] MEDS: Albuterol/Ipratropium 3.0-0.5 MG/3 ML Neb Soln INH SCH ×4 (09:17→21:24)
--- NOTE | 2017-03-07 09:21 | OR ---
DATE OF PROCEDURE: 03/05/2017 PREOPERATIVE DIAGNOSIS: Partial small bowel obstruction. POSTOPERATIVE DIAGNOSIS: 1. Partial small bowel obstruction secondary to small bowel volvulus. 2. 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 3. Separate small bowel stricture. 4. Potentially contaminated intraperitoneal mesh associated with recurrent incisional hernia. 5. Extensive intraabdominal and pelvic adhesions. OPERATIVE PROCEDURE: Exploratory laparotomy with: 1. Reduction of small bowel volvulus (79649). 2. Revision of jejunojejunostomy component of Addison-en-Y gastric bypass (54495). 3. Separate small bowel stricturoplasty (48287). 4. Removal of intraperitoneal mesh (45254). 5. Repair of recurrent incisional hernia (04988). 6. Placement of Interceed mesh to limit recurrent adhesion formation between pelvic and abdominal wall and small bowel (42737). ANESTHESIA: General. HAND STRIPPER: Martha Hopkins PA-C. INDICATION FOR PROCEDURE: This is a 56-year-old status post a Addison-en-Y gastric bypass done originally at [facility] in the early and had revision to a more distal gastric bypass at the [facility] around 2000. She presents now with a roughly two month history of worsening abdominal pain and bloating. CT scan showed fecalization of the contents within the Addison limb, as well as some suggestion of component of small-bowel volvulus. Given this, the plan is to proceed with an exploratory laparotomy with reduction of volvulus and bowel resection as indicated. She has some intraperitoneal mesh that may or may not need to be removed, depending on the presence of any open bowel during the course of the case. The potential risks of the procedure including bleeding, infection, leaks from various GI tract closures, recurrence of the bowel obstruction over time, along with a remote possibility of cardiopulmonary, septic, or hemorrhagic complications leading to were discussed, and the patient wishes to proceed. DETAILS OF THE PROCEDURE: The patient was taken to the operating room and placed in a supine position. After general endotracheal anesthesia was induced, the abdomen was prepped and draped. The previous midline incision was then reused and carried down through the skin and subcutaneous tissue. The lowermost portion of the incision was without mesh, but the upper 3/4 of the incision had underlying Buffalo-Ata mesh present. This was divided. There were quite extensive adhesions to the mesh, particularly superiorly, which included dissection of the transverse colon off the upper aspect of the mesh. No evident deserosalizations were noted during the course of that dissection. Once the adhesions were taken down, general exploration was undertaken. The patient was noted to have, as expected, a Addison limb that, while fairly short, contained obvious solid material within it consistent with fecalization of the contents seen on CT scan. The patient had a quite long biliopancreatic limb and a common limb of around 200 cm. It was estimated that the Addison limb measured around 150 cm. The patient had an obvious volvulus involving the jejunojejunostomy. As this was eventually reduced, it was then noted that, despite orienting the bowel in what would be a normal positioning, there was quite striking angulation of the outlet of the jejunojejunostomy as it entered the common limb, and this appeared to warrant reconstruction of the jejunojejunostomy component of the gastric bypass. The limb that came up [id number] against the bowel was the biliopancreatic limb as it became a common limb, and this was initially divided. A small portion of that distal Addison limb was then excised with a PAKO stapler. The initial division was also with PAKO beverly, and at roughly 15 cm distal to that point, a new jejunojejunostomy was accomplished with 2 internal firings of the PAKO chavez load and the common opening closed with a purple load. Proximal to that, the patient had an area of stricturing present within the small bowel. This bowel was flipped over on itself, openings made on the end, and 2 firings of the chavez load placed internally and that area closed with purple loads x2. The angles of anastomosis and the mesenteric defect were both closed, and in the case of the mesenteric defect at the new jejunojejunostomy, this was closed with a 2-0 silk to provide some more permanence to allow the small bowel component to line up very satisfactorily at this point. The patient's intraperitoneal mesh appeared to be a Buffalo-Ata type mesh, which was covered with a quite scant amount of soft tissue, and this would be extremely high risk for becoming infected if left in place. Given this, the Buffalo-Ata mesh was excised. Upon its superior aspect, there was recurrent hernia as well, which the patient noted preoperatively. At this point, the abdomen was irrigated with meropenem-containing saline solution. The midline fascia was then approximated with #2 Vicryl stitch. This involved closure of the recurrent incisional hernia as well. An Interceed mesh had been placed to confirm the base of the incision along the pelvic sidewall and up against the abdominal wall to limit recurrent adhesion formation, particularly in an event that the patient would develop recurrent hernia. This might facilitate a more adequate entrance into the abdomen. The fascia was closed with #2 Vicryl stitch. The skin and subcutaneous tissue were felt to be at high risk for a wound infection, if left open, and was packed open with iodoform gauze, and the patient was taken to the recovery room in satisfactory condition. There were no evident complications. Physician assistant reading teacher, Martha Hopkins, played an essential role in assisting in this case, helping to position the patient, retract structures as needed, as well as suturing and cutting sutures as indicated. Her presence improved patient safety and decreased operative time. Rinku Christian MD /[id number]
[2017-03-07] MEDS: Levothyroxine 75 MCG Tab PO SCH (09:33)
[2017-03-07] MEDS: cycloSPORINE Ophth Drops U/D Box of 30 EYEBOTH SCH ×2 (10:38→21:27)
[2017-03-07] MEDS: Sennosides 8.6 MG Tab PO SCH (10:40)
[2017-03-07] MEDS: Carvedilol 12.5 MG Tab PO SCH (10:41)
[2017-03-07] MEDS: Gabapentin 300 MG Cap PO SCH ×3 (10:41→21:32)
[2017-03-07] MEDS: Lisinopril 2.5 MG Tab PO SCH (10:42)
[2017-03-07] MEDS: Cyclobenzaprine 10 MG Tab PO SCH ×3 (10:42→21:33)
--- NOTE | 2017-03-07 11:12 | PN ---
DATE OF SERVICE: 03/06/2017 SUBJECTIVE: Kamille is postop day 1. Her pain has been controlled. She has been very sleepy. She has received Narcan. Her fentanyl patch was removed, and she has not been using her BOOK JOGGER and continues to be quite sleepy. Her h.s. medications will be reviewed. Vital signs have been stable. Temperature max 99.1. She has been up and ambulated. REVIEW OF SYSTEMS: Remainder of review of systems negative for any pertinent positives and negatives. OBJECTIVE: GENERAL: Kamille Conley is a 56-year-old female. She is sleepy, but arouses easily and answers questions appropriately. VITAL SIGNS: TPR is 99.1, 71, 12. Blood pressure 118/56. HEENT: Negative. NECK: Supple. HEART: Regular rate and rhythm. LUNGS: Clear. ABDOMEN: Dressings dry and intact. Abdominal binder is on. EXTREMITIES: SCDs are on and there is no peripheral edema. ASSESSMENT: Exploratory laparotomy with: A. Reduction of small bowel volvulus. B. Revision of the JJ component of the Addison-en-Y gastric bypass surgery. C. Separate small-bowel strictureplasty. D. Removal of intraperitoneal mesh. E. Repair of recurrent incisional hernia. F. Placement of Interceed mesh to limit recurrent adhesion formation for partial small bowel obstruction secondary to small bowel volvulus, poorly emptying JJ secondary to chronic congestion with distortion, separate small-bowel stricture, potentially contaminated intraperitoneal mesh, extensive intraabdominal and pelvic adhesions. Date of surgery 03/05/2017 - Rinku Christian MD; surgeon. PLAN: 1. Schedule and have consent signed for delayed primary closure on 03/07/2017, under IV sedation, Rinku Christian MD. 2. Continue good pulmonary toilet. 3. Pharmacy consulted. We will change the Zoloft to 1800 hours and keep the rest of the medications as same. We will evaluate p.r.n. or in a.m. Martha Hopkins PA-C /[id number]
[2017-03-07] MEDS: Pantoprazole 40 MG Vial IV SCH (12:12)
--- NOTE | 2017-03-07 12:57 | OR ---
DATE OF PROCEDURE: 03/07/2017 PREOPERATIVE DIAGNOSIS: Open abdominal incision. POSTOP DIAGNOSIS: Open abdominal incision. OPERATIVE PROCEDURE: Delayed primary closure of open abdominal incision. ANESTHESIA: IV sedation. INDICATION FOR PROCEDURE: This is a 56-year-old status post open laparotomy through a multiple used incision, this being a long midline incision. She has had some bowel resection, and was felt to be at very high risk for wound infection if a primary closure be undertaken. Given this, the wound was packed open for planned delayed primary closure. Potential risks including bleeding and infection were reviewed, and the patient wishes to proceed. DETAILS OF PROCEDURE: The patient was taken to the operating room and placed in a supine position. IV sedation was administered, after which the abdominal dressing was taken down and the incision inspected and found to be clean. The incision was then prepped and draped and anesthetized with 1% lidocaine mixed with Marcaine and irrigated with meropenem- containing saline solution. A 10-Brazilian Timothy-Robbins drain was then placed across the incision, which was then closed with 2 layers of 3-0 and 4-0 Vicryl stitch deep and beverly for the skin. Drain was affixed with some 3-0 Vicryl stitch. The patient was taken to the recovery room in satisfactory condition. Rinku Christian MD /[id number]
--- NOTE | 2017-03-07 13:00 | PN ---
DATE OF SERVICE: 03/07/2017 The patient has been afebrile with stable vital signs, quite a bit more alert this morning. The major component of the drowsiness yesterday probably was the fentanyl patch. Otherwise, pain is controlled at this point. She appears to be reasonably good. We will move up her gabapentin to 900 mg t.i.d., then we will start her on some Senna, go up to Step-3 diet today. Wound was closed today with the ESTELLA drain over, back downed the IV rate. We will, at this point, more or less, await for her bowels to get going. She may need some bowel stimulation tomorrow. Rinku Christian MD /[id number]
[2017-03-07] MEDS: Lidocaine 5% 700 MG Patch TRDERM SCH (13:34)
[2017-03-07] MEDS ORDERED: Acetaminophen 325 MG Tab PO SCH (14:00)
[2017-03-07] MEDS ORDERED: Acetaminophen 325 MG Tab, 50 Tab Bulk Bottle PO SCH (14:00)
[2017-03-07] MEDS: Acetaminophen 325 MG Tab PO SCH ×3 (14:35→21:30)
[2017-03-07] MEDS: Sertraline 50 MG Tab PO SCH (17:22)
[2017-03-07] MEDS: Ondansetron 4 MG/2 ML SDV IV PRN (19:52)
[2017-03-07] MEDS: traZODone 50 MG Tab PO SCH (21:31)
[2017-03-07] MEDS: Montelukast 5 MG Tab.Chew PO SCH (21:33)
[2017-03-08] MEDS: Acetaminophen 325 MG Tab PO SCH ×2 (02:10→05:44)
[2017-03-08] MEDS ORDERED: Ondansetron 4 MG Tab.DIS PO PRN (07:38)
[2017-03-08] MEDS: Formoterol/Mometasone 200-5 MCG 8.8 GM Inhaler IH SCH ×2 (07:41→20:28)
[2017-03-08] MEDS: Albuterol/Ipratropium 3.0-0.5 MG/3 ML Neb Soln INH SCH ×4 (07:41→20:38)
[2017-03-08] MEDS ORDERED: Pantoprazole 40 MG Tab.CR PO SCH ×2 (07:45→21:00)
[2017-03-08] MEDS ORDERED: Magnesium Hydroxide 400 MG/5 ML Susp 30 ML Cup PO ONE (08:00)
[2017-03-08] MEDS ORDERED: Bisacodyl 5 MG Tab PO ONE (09:00)
[2017-03-08] MEDS: Acetaminophen/HYDROcodone 325-5 MG Tab PO PRN ×3 (09:03→20:26)
[2017-03-08] MEDS: Cyclobenzaprine 10 MG Tab PO SCH ×3 (09:04→20:26)
[2017-03-08] MEDS: Gabapentin 300 MG Cap PO SCH ×3 (09:04→20:29)
[2017-03-08] MEDS: Levothyroxine 75 MCG Tab PO SCH (09:06)
[2017-03-08] MEDS: Lisinopril 2.5 MG Tab PO SCH ×2 (09:07→20:29)
[2017-03-08] MEDS: Carvedilol 12.5 MG Tab PO SCH ×2 (09:07→20:27)
[2017-03-08] MEDS: Magnesium Oxide 400 MG Tab PO SCH (09:08)
[2017-03-08] MEDS: cycloSPORINE Ophth Drops U/D Box of 30 EYEBOTH SCH ×2 (09:08→20:30)
[2017-03-08] MEDS: Sennosides 8.6 MG Tab PO SCH (09:09)
--- NOTE | 2017-03-08 10:12 | PN ---
DATE OF SERVICE: 03/08/2017 SUBJECTIVE: Kamille has been up ambulating. Blood pressure has been running low 93/44, 93/48. Her Coreg and lisinopril were held last evening. Pain remained 8/10 consistently. Oral intake 1665, output 850. ESTELLA drain put out 5 mL. She has not had a bowel movement yet. She has consumed 50% of her breakfast, 0 of lunch, and 100% of dinner. REVIEW OF SYSTEMS: Remainder of review of systems negative for any pertinent positives and negatives. OBJECTIVE: GENERAL: Kamille Conley is a pleasant 56-year-old female. She is alert and orientated. VITAL SIGNS: TPR 97.9, 76, 12, blood pressure 114/61. HEENT: Negative. NECK: Supple. HEART: Regular rate and rhythm. LUNGS: Clear. ABDOMEN: Abdomen incision looks good. Aquacel dressing is on. ESTELLA drain midline intact. Draining scant amounts of pink serosanguineous drainage. EXTREMITIES: SCDs are on. There is no peripheral edema. ASSESSMENT: 1. Exploratory laparotomy with;. a. Reduction of small bowel volvulus. b. Revision of jejunostomy component of Addison-en-Y gastric bypass surgery. c. Separate small bowel stricture plasty. d. Removal of intraperitoneal mesh. e. Repair of recurrent incisional hernia. f. Placement of Interceed mesh to limit recurrent adhesion formation between the pelvic and abdominal wall and small bowel for partial small bowel obstruction secondary to small bowel volvulus, poorly emptying jejunostomy secondary to chronic long-term angulation and distortion, separate small bowel stricture, potentially contaminated intraperitoneal mass associated with recurrent incisional hernia and extensive intraabdominal and pelvic adhesions. Date of surgery 03/05/2017. Rinku Christian, surgeon. 2. Delayed primary closure of open abdominal incision for open abdominal incision on 03/07/2017, Rinku Christian MD, surgeon. PLAN: 1. 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 2. Continuous pulse ox. 3. [place] 5/325 mg 1 to 2 every 4 hours p.r.n. pain. 4. Milk of magnesia 30 mL now. 5. Dulcolax tablet 20 mg p.o. 1 hour after milk of mag. 6. Convert IV to saline lock. 7. Good pulmonary toilet encouraged. 8. We will evaluate p.r.n. or in a.m. 9. Mag oxide 400 mg p.o. daily, Zofran ODT 4 mg q.4 hours sublingual p.r.n. nausea and vomiting. 10.Protonix 40 mg p.o. at bedtime. 11.Good pulmonary toilet encouraged. 12.We will evaluate p.r.n. or in a.m. 13.Plan discharge in a.m. Martha Hopkins PA-C /[id number]
[2017-03-08] MEDS: Lidocaine 5% 700 MG Patch TRDERM SCH ×2 (13:43→17:51)
[2017-03-08] MEDS ORDERED: Furosemide 20 MG Tab PO ONE (16:30)
[2017-03-08] MEDS ORDERED: Potassium Chloride 20 MEQ Tab.ER PO ONE (17:00)
[2017-03-08] MEDS: Sertraline 50 MG Tab PO SCH (17:57)
[2017-03-08] MEDS: Montelukast 5 MG Tab.Chew PO SCH (20:30)
[2017-03-08] MEDS: traZODone 50 MG Tab PO SCH (20:38)
[2017-03-09] MEDS: Acetaminophen/HYDROcodone 325-5 MG Tab PO PRN ×4 (00:38→14:42)
[2017-03-09] MEDS: Albuterol/Ipratropium 3.0-0.5 MG/3 ML Neb Soln INH SCH ×3 (07:40→15:03)
[2017-03-09] MEDS: Formoterol/Mometasone 200-5 MCG 8.8 GM Inhaler IH SCH (07:42)
[2017-03-09] MEDS ORDERED: Furosemide 20 MG Tab PO PRN (07:52)
[2017-03-09] MEDS ORDERED: Potassium Chloride 20 MEQ Tab.ER PO SCH (08:00)
[2017-03-09] MEDS: Lisinopril 2.5 MG Tab PO SCH (08:11)
[2017-03-09] MEDS: Levothyroxine 75 MCG Tab PO SCH (08:11)
[2017-03-09] MEDS: Cyclobenzaprine 10 MG Tab PO SCH ×2 (08:12→13:25)
[2017-03-09] MEDS: cycloSPORINE Ophth Drops U/D Box of 30 EYEBOTH SCH (08:12)
[2017-03-09] MEDS: Magnesium Oxide 400 MG Tab PO SCH (08:12)
[2017-03-09] MEDS: Gabapentin 300 MG Cap PO SCH ×2 (08:12→13:25)
[2017-03-09] MEDS: Sennosides 8.6 MG Tab PO SCH (08:12)
[2017-03-09] MEDS: Carvedilol 12.5 MG Tab PO SCH (08:12)
[2017-03-09 10:53] VITALS: BP 119/63
[2017-03-09] MEDS: Lidocaine 5% 700 MG Patch TRDERM SCH (13:24)
--- NOTE | 2017-03-09 13:54 | US ---
No evidence for DVT throughout the left upper extremity deep venous system.
--- NOTE | 2017-03-12 08:59 | DISCH ---
ADMISSION DIAGNOSES: Status post Addison-en-Y gastric bypass surgery, unspecified surgical malabsorption, B12 deficiency, low ferritin, partial small bowel obstruction, postprandial pain, nausea, vomiting, allergic rhinitis, cardiomyopathy, asthma, history of pancreatitis, Crohn's disease, migraine headaches, reflex sympathetic dystrophy, depression, hypothyroidism, and bilateral glaucoma. DISCHARGE DIAGNOSES: 1. Exploratory laparotomy with reduction of small bowel volvulus. 2. Revision of jejunostomy component of the Addison-en-Y gastric bypass. 3. Separate small bowel strictureplasty. 4. Removal of intraperitoneal mesh. 5. Repair of recurrent incisional hernia. 6. Placement of Interceed mesh to limit recurrent adhesion formation between pelvic and abdominal wall and small bowel for partial small bowel obstruction secondary to small bowel volvulus, poorly emptying jejunostomy secondary to chronic long-term angulation and distortion, separate small bowel stricture, potentially contaminated intraperitoneal mesh associated with recurrent incisional hernia, and extensive intraabdominal and pelvic adhesions. Date of surgery 03/05/2017; Rinku Christian M.D. 7. Delayed primary closure, 03/07/2017. HISTORY: Kamille Conley is a 56-year-old female, who had a Addison-en-Y gastric bypass surgery originally at [facility] in the early . She had a revision to more distal gastric bypass at the [facility] in 2000. Then in 2002, her weight decreased to 114 pounds, and she had a revision of that part of her surgery. She presents now with a 2-month history of postprandial abdominal pain and bloating. After preoperative evaluation, discussion of possible risks and possible complications, she wished to proceed with surgical procedure. HOSPITAL COURSE: Kamille had her surgery on 03/05/2017 with delayed primary closure on 03/07/2017. She was started on a step-2 gastric bypass diet, advanced to step-3. She received dietary instruction. Her activity was good. Her pain was well managed. On 03/08/2017, her IV did infiltrate, it was in the left axilla area and infiltrated into the left breast, axilla, and left arm. She did have an ultrasound to rule out any DVT and this was negative. With an increased amount of third spacing fluid, she had edema pretty much all over. She was given Lasix and this did help. On postop day #4, she was ready to be discharged to home. PHYSICAL EXAMINATION: GENERAL: Kamille is a 56-year-old female. VITAL SIGNS: Height is 5 feet 8.9 inches, weight is 190 pounds. TPR is 98.2, 60, 12. Blood pressure 122/84. HEENT: Negative. NECK: Supple. HEART: Regular rate and rhythm. LUNGS: Clear. ABDOMEN: Stapled incision looks good. She has a flat ESTELLA drain in the incision, which is draining scant amounts of a light pink drainage. EXTREMITIES: Do reveal peripheral edema. She has her SCDs on. BREASTS: The left breast is swollen, almost twice the size of her right breast/axilla area where she has actually had 2 IVs. The site is negative, it is not red, but it is tender. DISPOSITION: Discharged to home. CONDITION: Stable and improving. FOLLOWUP APPOINTMENT: With Martha Hopkins PA-C, on 03/19/2017. DISCHARGE MEDICATIONS: Home medications: 1. [place] 5/325 mg 1 to 2 tablets q.4 hours p.r.n. pain, #50. 2. Doxycycline 100 mg b.i.d. for 10 days. 3. Lasix 20 mg p.o. daily p.r.n. fluid retention, #14. 4. Magnesium oxide 400 mg p.o. daily, #100, 4 refills. 5. Zofran ODT 4 mg q.4 hours p.r.n. nausea. 6. Klor-Con 40 mEq daily, #14, to take when she is taking the Lasix. She is to resume home medications of aspirin 81 mg p.o. daily; Proventil 2 puffs twice daily; Coreg 12.5 mg oral twice daily; Flexeril 10 mg oral 3 times a day; Flonase 1 spray in each nostril once daily; Advair Diskus 1 puff inhalation twice daily; gabapentin 900 mg p.o. 3 times a day; levothyroxine 75 mcg oral daily; Lidoderm 1 patch topical every 12 hours; lisinopril 2.5 mg oral daily; Singulair 10 mg oral daily; nitroglycerin 0.4 mg sublingual p.r.n. chest pain; Zantac 75 mg oral daily; Senokot 8.6 mg oral twice daily; sertraline (Zoloft) 100 mg oral at bedtime; Actigal 100 mg oral twice daily; vitamin A 100,000 units IM as directed, she got one in the hospital and she gets it once a month; Restasis 1 drop in each eye twice daily; and Vistaril 50 mg oral every 4 hours. Discontinue taking the tramadol and all vitamins and supplements until she returns to the clinic for her first appointment. DISCHARGE INSTRUCTIONS: Diet after discharge: Step-3 gastric bypass diet. Drink 8 to 10 glasses a day of water. Activity: No lifting greater than 10 pounds for 6 weeks. Walk at least 6 times daily inside your home. Driving: Do not drive on pain medication. Shower/bathing: May shower. Notify provider if fever, increased pain, swelling, redness, nausea or vomiting. Keep site clean and dry. Wear abdominal binder for 6 weeks and then as tolerated. SPECIAL INSTRUCTIONS: Use incentive spirometer 10 times every hour while awake for 2 weeks. Wear HAYES hose until swelling has resolved, and empty ESTELLA drain out once daily and p.r.n.
== END 2017-03-09 18:45 | disposition home or self-care (01) | DRG 327 ==
LOC: JP.ED 17:35 → JP.2SS 21:57
PROVIDERS: ADMIT Surgery; ATTEND Surgery
PROC: 0WPF0JZ Removal of Synthetic Substitute from Abdominal Wall, Open Approach (ICD-10-PCS; principal; 2017-03-05)
PROC: 0DBA0ZZ Excision of Jejunum, Open Approach (ICD-10-PCS; principal; 2017-03-05)
PROC: 0DS90ZZ Reposition Duodenum, Open Approach (ICD-10-PCS; principal; 2017-03-05)
PROC: 0WQF0ZZ Repair Abdominal Wall, Open Approach (ICD-10-PCS; principal; 2017-03-05)
PROC: 3E0M05Z Introduction of Adhesion Barrier into Peritoneal Cavity, Open Approach (ICD-10-PCS; principal; 2017-03-05)
PROC: 0D160ZA Bypass Stomach to Jejunum, Open Approach (ICD-10-PCS; principal; 2017-03-05)
PROC: 0WQF0ZZ Repair Abdominal Wall, Open Approach (ICD-10-PCS; 2017-03-07)
DX: K56.60 Unspecified intestinal obstruction (principal); K56.2 Volvulus; K91.2 Postsurgical malabsorption, not elsewhere classified; K50.90 Crohn's disease, unspecified, without complications; G90.50 Complex regional pain syndrome I, unspecified; R11.2 Nausea with vomiting, unspecified; R10.9 Unspecified abdominal pain; I42.9 Cardiomyopathy, unspecified; K43.2 Incisional hernia without obstruction or gangrene; K66.0 Peritoneal adhesions (postprocedural) (postinfection); E53.8 Deficiency of other specified B group vitamins; J45.909 Unspecified asthma, uncomplicated; Z87.891 Personal history of nicotine dependence; M54.9 Dorsalgia, unspecified; G89.29 Other chronic pain; M79.7 Fibromyalgia; F32.9 Major depressive disorder, single episode, unspecified; F41.9 Anxiety disorder, unspecified; Z98.1 Arthrodesis status; R79.0 Abnormal level of blood mineral; E03.9 Hypothyroidism, unspecified; Z98.84 Bariatric surgery status; Z98.0 Intestinal bypass and anastomosis status; Z79.82 Long term (current) use of aspirin; Z88.8 Allergy status to other drugs, medicaments and biological substances; Z91.018 Allergy to other foods; H40.9 Unspecified glaucoma; T80.89XA Other complications following infusion, transfusion and therapeutic injection, initial encounter
CPT/HCPCS: 36415; 74176; 80053; 81001; 82150; 83605; 83690; 85025; 86140; 96361; 96374; 96375; 99284; J2270; J2405; J7040; 74240; 74240-26; 82607; 82728; 82746; 83036; 83735; 84100; 84425; 84443; 85027; 88300; 88307; 93971-26; 93971-LT; 94640-76; 94762; 96376; A9270-GY; C9113; J0694; J1100; J1756; J2020; J2185; J2250; J2310; J2704; J2710; J2765; J3010; J3420; J3475; J7042; J7050; J7120; J7620; Q9967

== ENCOUNTER 2017-03-16 15:45 | Emergency (ER) | payer MEDICARE, OTHER ==
--- NOTE | 2017-03-16 17:27 | EDM.PDOC ---
<Maribell Nicole - Last Filed: 03/16/17 17:35> ED HPI GENERAL MEDICAL PROBLEM - General Chief Complaint: General Stated Complaint: ABD PAIN,SOB,VARYING OXYGEN LEVELS Time Seen by Provider: 03/16/17 16:20 Source of Information: Reports: Patient, Other ( clinic records. ) History Limitations: Reports: No Limitations - History of Present Illness INITIAL COMMENTS - FREE TEXT/NARRATIVE: pt arrived with sob and pain when she takes a deep breath in the retro sternal area. Onset: Gradual Duration: Hour(s): Location: Reports: Chest, Other (pain with deep breathing and sob. ) Associated Symptoms: Reports: Chest Pain, Shortness of Breath abd incision Pain Score (Numeric/FACES): 6 - Related Data Allergies Allergy/AdvReac Type Severity Reaction Status Date / Time diclofenac potassium Allergy Severe Anaphylactic Verified 03/16/17 16:11 [From Cataflam] Shock duloxetine HCl Allergy Severe Anaphylactic Verified 03/16/17 16:11 [From Cymbalta] Shock hydromorphone HCl Allergy Severe Anaphylactic Verified 03/16/17 16:11 [From Dilaudid] Shock nabumetone [From Relafen] Allergy Severe Anaphylactic Verified 03/16/17 16:11 Shock prochlorperazine edisylate Allergy Severe Anaphylactic Verified 03/16/17 16:11 [From Compazine] Shock prochlorperazine maleate Allergy Severe Anaphylactic Verified 03/16/17 16:11 [From Compazine] Shock rofecoxib [From Vioxx] Allergy Severe Anaphylactic Verified 03/16/17 16:11 Shock diclofenac [From Cataflam] Allergy Hives Verified 03/16/17 16:11 peach AdvReac Vomiting Verified 03/16/17 16:11 Home Meds: Home Meds Aspirin 325 mg PO DAILY 03/20/13 [History] Carvedilol [Coreg] 12.5 mg PO BID 03/20/13 [History] Cyclobenzaprine HCl [Flexeril] 10 mg PO TID 03/20/13 [History] Gabapentin [Gralise] 900 mg PO TID 03/20/13 [History] Levothyroxine 75 mcg PO DAILY 03/20/13 [History] Lidocaine [Lidoderm] 1 patch TOP Q12H 03/20/13 [History] Lisinopril [Prinivil] 2.5 mg PO BID 03/20/13 [History] Montelukast [Singulair] 10 mg PO DAILY 03/20/13 [History] Ranitidine [Zantac] 75 mg PO BID 03/20/13 [History] Sertraline [Zoloft] 100 mg PO BEDTIME 03/20/13 [History] Ursodiol [Actigal] 100 mg PO BID 03/20/13 [History] hydrOXYzine Pamoate [Vistaril] 50 mg PO Q4HR 03/20/13 [History] Fluticasone/Salmeterol [Advair 250-50 Diskus] 1 puff INH BID 04/28/16 [History] Hydrocodone/Acetaminophen [Hydrocodon-Acetaminophen 5-325] 0.5 tab PO BID [History] Vitamin A Palmitate [Aquasol A] 100,000 unit IM ASDIRECTED 03/03/17 [History] Albuterol [Proventil HFA] 2 puff INH BID PRN 03/04/17 [History] Ascorbic Acid [Vitamin C] 1,000 mg PO DAILY 03/04/17 [History] Fluticasone Propionate [Flonase] 1 spray NASBOTH DAILY 03/04/17 [History] Furosemide [Lasix] 20 - 40 mg PO DAILY PRN 03/04/17 [History] Nitroglycerin 0.4 mg SL ASDIRECTED PRN 03/04/17 [History] Sennosides [Senokot] 8.6 mg PO BID 03/04/17 [History] cycloSPORINE [Restasis] 1 drop EYEBOTH BID 03/04/17 [History] Doxycycline [Vibramycin] 100 mg PO BID #20 cap 03/09/17 [Rx] Furosemide [Lasix] 20 mg PO DAILY PRN #14 tablet 03/09/17 [Rx] Magnesium Oxide 400 mg PO DAILY #100 tablet 03/09/17 [Rx] Ondansetron [Zofran ODT] 4 mg PO Q4H PRN #30 tab.dis 03/09/17 [Rx] Potassium Chloride [Klor-Con M20] 40 meq PO DAILY PRN #14 tab.er 03/09/17 [Rx] Past Medical History HEENT History: Reports: Allergic Rhinitis, Impaired Vision Cardiovascular History: Reports: Cardiomyopathy Respiratory History: Reports: Asthma Gastrointestinal History: Reports: Bowel Obstruction, Pancreatitis Other Gastrointestinal History: crohns Genitourinary History: Reports: Other (See Below) Other Genitourinary History: kidney failure "at times" [employer] History: Reports: , Spontaneous Musculoskeletal History: Reports: Back Pain, Chronic, Fibromyalgia, RA Neurological History: Reports: Concussion, Migraines, Reflex Sympathetic Dystrophy Psychiatric History: Reports: Anxiety, Depression Endocrine/Metabolic History: Reports: Hypothyroidism Hematologic History: Reports: B12 Deficiency Immunologic History: Reports: None Oncologic (Cancer) History: Reports: None Dermatologic History: Reports: Other (See Below) Other Dermatologic History: itchy, dry skin - Infectious Disease History Infectious Disease History: Reports: Chicken Pox - Past Surgical History HEENT Surgical History: Reports: Other (See Below) Other HEENT Surgeries/Procedures: trabeculectomy bilateral eyes for glaucoma. brow and eye lift Cardiovascular Surgical History: Reports: None Respiratory Surgical History: Reports: None GI Surgical History: Reports: Bariatric Procedure, Cholecystectomy, Colonoscopy , Hernia Repair/Other, Other (See Below) Other GI Surgeries/Procedures: bowel resection Female Surgical History: Reports: None Endocrine Surgical History: Reports: None Neurological Surgical History: Reports: Spinal Fusion, Other (See Below) Other Neurological Surgeries/Procedures: L1-S1 Musculoskeletal Surgical History: Reports: None Oncologic Surgical History: Reports: None Dermatological Surgical History: Reports: None Social & Family History - Family History Family Medical History: Noncontributory - Tobacco Use Smoking Status *Q: Never Smoker Years of Tobacco use: 3 Used Tobacco, but Quit: Yes Month Tobacco Last Used: Second Hand Smoke Exposure: No - Caffeine Use Caffeine Use: Reports: Coffee, Soda Caffeine Use Comment: drinks 2-6 cans of diet coke daily - Alcohol Use Days Per Week of Alcohol Use: 0 - Recreational Drug Use Recreational Drug Use: No ED ROS GENERAL - Review of Systems Review Of Systems: See Below Constitutional: Reports: No Symptoms HEENT: Reports: No Symptoms Respiratory: Reports: No Symptoms Cardiovascular: Reports: No Symptoms Endocrine: Reports: No Symptoms GI/Abdominal: Reports: Other (pt has redness around the wound. ) : Reports: No Symptoms Musculoskeletal: Reports: No Symptoms Skin: Reports: No Symptoms ED EXAM, GENERAL - Physical Exam Exam: See Below Free Text/Narrative:: pt has redness in the abdomanal wound. She has been sob since she was discharged. She has been on lasix. Exam Limited By: No Limitations General Appearance: Alert, Anxious, Mild Distress Ears: Normal TMs Nose: Normal Inspection Throat/Mouth: Normal Inspection Head: Atraumatic Neck: Carotid Bruit Respiratory/Chest: No Respiratory Distress Cardiovascular: Regular Rate, Rhythm GI/Abdominal: Soft, Non-Tender (Female) Exam: Deferred Rectal (Female) Exam: Deferred Back Exam: Normal Inspection Neurological: Alert, Oriented, Normal Cognition Course - Vital Signs Last Recorded V/S: Last Vital Signs Temp 36.4 C 03/16/17 16:10 Pulse 70 03/16/17 18:26 Resp 12 03/16/17 18:26 BP 109/68 03/16/17 18:26 Pulse Ox 96 03/16/17 18:26 - Orders/Labs/Meds Orders: Active Orders 24 hr Category Date Time Status Ang Chest [CT] Stat Exams 03/16/17 17:21 Taken Chest 2V [CR] Stat Exams 03/16/17 16:00 Taken Iopamidol [Isovue-370 (76%)] Med 03/16/17 17:45 Active 75 ml IV . DIRECTED Sodium Chloride 0.9% [Saline Flush] Med 03/16/17 17:34 Active 10 ml FLUSH ONETIME PRN Medication Orders Iopamidol (Isovue-370 (76%)) 75 ml IV . DIRECTED [facility] Last Admin: 03/16/17 17:52 Dose: 100 ml Sodium Chloride (Saline Flush) 10 ml FLUSH ONETIME PRN PRN Reason: PER RADIOLOGY PROTOCOL Last Admin: 03/16/17 17:52 Dose: 10 ml Labs: Laboratory Tests 03/16/17 03/16/17 03/16/17 Range/Units 16:33 16:33 16:33 WBC 6.1 (4.5-11.0) K/uL RBC 4.34 (3.30-5.50) M/uL Hgb 12.2 (12.0-15.0) g/dL Hct 39.5 (36.0-48.0) % MCV 91 (80-98) fL MCH 28 (27-31) pg MCHC 31 L (32-36) % Plt Count 348 (150-400) K/uL Neut % (Auto) 53 (36-66) % Lymph % (Auto) 33 (24-44) % Evans % (Auto) 9 H (2-6) % Eos % (Auto) 3 (2-4) % Baso % (Auto) 1 (0-1) % Sodium 142 (140-148) mmol/L Potassium 4.8 (3.6-5.2) mmol/L Chloride 106 (100-108) mmol/L Carbon Dioxide 28 (21-32) mmol/L Anion Gap 7.8 (5.0-14.0) mmol/L BUN 17 D (7-18) mg/dL Creatinine 0.8 (0.6-1.0) mg/dL Est Cr Clr Drug Dosing 84.01 mL/min Estimated GFR (MDRD) > 60 (>60) Glucose 86 (74-106) mg/dL Calcium 8.4 L (8.5-10.1) mg/dL Total Bilirubin 0.4 D (0.2-1.0) mg/dL AST 20 (15-37) U/L ALT 29 (12-78) U/L Alkaline Phosphatase 118 H (46-116) U/L NT-Pro-B Natriuret Pep 120 (5-125) pg/mL Total Protein 7.3 (6.4-8.2) g/dL Albumin 3.2 L (3.4-5.0) g/dL Globulin 4.1 H (2.3-3.5) g/dL Albumin/Globulin Ratio 0.8 L (1.2-2.2) Urine Color Urine Appearance Urine pH (4.5-8.0) Ur Specific [place] (1.008-1.030) Urine Protein (NEGATIVE) mg/dL Urine Glucose (UA) (NEGATIVE) mg/dL Urine Ketones (NEGATIVE) mg/dL Urine Occult Blood (NEGATIVE) Urine Nitrite (NEGATIVE) Urine Bilirubin (NEGATIVE) Urine Urobilinogen (NORMAL) mg/dL Ur Leukocyte Esterase (NEGATIVE) Urine RBC (0-5) Urine WBC (0-5) Ur Epithelial Cells Amorphous Sediment Urine Bacteria Urine Mucus 03/16/17 Range/Units 18:29 WBC (4.5-11.0) K/uL RBC (3.30-5.50) M/uL Hgb (12.0-15.0) g/dL Hct (36.0-48.0) % MCV (80-98) fL MCH (27-31) pg MCHC (32-36) % Plt Count (150-400) K/uL Neut % (Auto) (36-66) % Lymph % (Auto) (24-44) % Evans % (Auto) (2-6) % Eos % (Auto) (2-4) % Baso % (Auto) (0-1) % Sodium (140-148) mmol/L Potassium (3.6-5.2) mmol/L Chloride (100-108) mmol/L Carbon Dioxide (21-32) mmol/L Anion Gap (5.0-14.0) mmol/L BUN (7-18) mg/dL Creatinine (0.6-1.0) mg/dL Est Cr Clr Drug Dosing mL/min Estimated GFR (MDRD) (>60) Glucose (74-106) mg/dL Calcium (8.5-10.1) mg/dL Total Bilirubin (0.2-1.0) mg/dL AST (15-37) U/L ALT (12-78) U/L Alkaline Phosphatase (46-116) U/L NT-Pro-B Natriuret Pep (5-125) pg/mL Total Protein (6.4-8.2) g/dL Albumin (3.4-5.0) g/dL Globulin (2.3-3.5) g/dL Albumin/Globulin Ratio (1.2-2.2) Urine Color Yellow Urine Appearance Clear Urine pH 5.0 (4.5-8.0) Ur Specific [place] 1.020 (1.008-1.030) Urine Protein Negative (NEGATIVE) mg/dL Urine Glucose (UA) Normal (NEGATIVE) mg/dL Urine Ketones Negative (NEGATIVE) mg/dL Urine Occult Blood Negative (NEGATIVE) Urine Nitrite Negative (NEGATIVE) Urine Bilirubin Negative (NEGATIVE) Urine Urobilinogen Normal (NORMAL) mg/dL Ur Leukocyte Esterase Negative (NEGATIVE) Urine RBC 0-5 (0-5) Urine WBC 0-5 (0-5) Ur Epithelial Cells Few Amorphous Sediment Few Urine Bacteria Not seen Urine Mucus Few Meds: Medications Generic Name Dose Route Start Last Admin Trade Name Freq PRN Reason Stop Dose Admin Iopamidol 75 ml 03/16/17 17:45 03/16/17 17:52 Isovue-370 (76%) IV 100 ml . DIRECTED [place]ONT Administration Sodium Chloride 10 ml 03/16/17 17:34 03/16/17 17:52 Saline Flush FLUSH 10 ml ONETIME PRN Administration PER RADIOLOGY PROTOCOL Discontinued Medications Generic Name Dose Route Start Last Admin Trade Name Xiang PRN Reason Stop Dose Admin Sodium Chloride 90 mls @ 3 mls/sec 03/16/17 17:34 03/16/17 17:52 Normal Saline IV 03/16/17 17:35 3 mls/sec ONETIME ONE Administration - Re-Assessments/Exams Free Text/Narrative Re-Assessment/Exam: 03/16/17 17:36 pt has a normal wbc and her elcetrolytes are noemal. Her chest xray does not show a definite infiltrate or fluid. Her bnp is normal. Departure - Departure Disposition: Home, Self-Care 01 Clinical Impression: Shortness of breath - Discharge Information Referrals: PCP,None [Primary Care Provider] - Forms: ED Department Discharge Additional Instructions: Your CT of the chest was negative for pulmonary embolism (blood clot) and pneumonia. Follow up with your primary provider in 7 to 10 days. Keep scheduled appointment with surgeon next week. Take antibiotic as prescribed per surgeon. Return for worsening, issues or concerns. <Devora Feliz - Last Filed: 03/16/17 19:00> Course - Radiology Interpretation CT Results Date: 03/16/17 (CT angio of chest is negative for pulmonary embolism or pneumonia. ) Departure - Departure Time of Disposition: 18:55 - Assessment/Plan Assessment:: Shortness of breath Plan: CT of the chest was negative for pulmonary embolism (blood clot) and pneumonia. Follow up with primary provider in 7 to 10 days. Keep scheduled appointment with surgeon next week. Take antibiotic as prescribed per surgeon. Return for worsening, issues or concerns.
[2017-03-16] MEDS ORDERED: Sodium Chloride 0.9% 10 ML Syringe FLUSH PRN (17:34)
[2017-03-16] MEDS ORDERED: Sodium Chloride 0.9% 90 ML IV ONE (17:34)
[2017-03-16] MEDS ORDERED: Iopamidol 755 Mg/ML 100 ML Bottle IV SCH (17:45)
[2017-03-16 18:27] VITALS: BP 109/68
--- NOTE | 2017-03-19 10:47 | CR ---
Chest 2V INDICATION: sob COMPARISON: None FINDINGS: Two views. Heart size normal. Lungs are clear. No infiltrate or pleural effusion. No sig ns of pulmonary edema. Neurostimulator device midthoracic spine. Postop changes abdomen and lumbar spine. IMPRESSION: Nothing acute.
== END 2017-03-16 19:12 | disposition home or self-care (01) ==
LOC: JP.ED 15:45
DX: R06.02 Shortness of breath (principal); J45.909 Unspecified asthma, uncomplicated; E03.9 Hypothyroidism, unspecified; Z88.5 Allergy status to narcotic agent; Z88.8 Allergy status to other drugs, medicaments and biological substances; Z79.82 Long term (current) use of aspirin; Z79.899 Other long term (current) drug therapy
CPT/HCPCS: 36415; 71020; 71275; 80053; 81001; 83880; 85025; 99285; J7030; J7050; Q9967; 99284

== ENCOUNTER 2018-03-16 19:13 | Emergency (ER) | payer MEDICARE, OTHER ==
[2018-03-16] MEDS ORDERED: Albuterol/Ipratropium 3.0-0.5 MG/3 ML Neb Soln NEB ONE (20:28)
[2018-03-16] MEDS ORDERED: Sodium Chloride 0.9% 1,000 ML IV SCH (20:30)
--- NOTE | 2018-03-16 20:37 | EDM.PDOC ---
ED HPI GENERAL MEDICAL PROBLEM - General Chief Complaint: Respiratory Problem Stated Complaint: BREATHING/LUNGS Time Seen by Provider: 03/16/18 19:55 Source of Information: Reports: Patient History Limitations: Reports: No Limitations - History of Present Illness INITIAL COMMENTS - FREE TEXT/NARRATIVE: 57 yo female presents to ER with SOB and cough. Pt has been feeling ill for 7- 10 days. illness started with sore throat progressed to productive cough. mHx of asthma that is usually controled but she is having to use her albuterol inhaler multiple times per day. fever with chills and fatigue. Chest Pain Score (Numeric/FACES): 5 - Related Data Allergies Allergy/AdvReac Type Severity Reaction Status Date / Time diclofenac potassium Allergy Severe Anaphylactic Verified 03/16/18 19:56 [From Cataflam] Shock duloxetine HCl Allergy Severe Anaphylactic Verified 03/16/18 19:56 [From Cymbalta] Shock hydromorphone HCl Allergy Severe Anaphylactic Verified 03/16/18 19:56 [From Dilaudid] Shock nabumetone [From Relafen] Allergy Severe Anaphylactic Verified 03/16/18 19:56 Shock prochlorperazine edisylate Allergy Severe Anaphylactic Verified 03/16/18 19:56 [From Compazine] Shock prochlorperazine maleate Allergy Severe Anaphylactic Verified 03/16/18 19:56 [From Compazine] Shock rofecoxib [From Vioxx] Allergy Severe Anaphylactic Verified 03/16/18 19:56 Shock diclofenac [From Cataflam] Allergy Hives Verified 03/16/18 19:56 peach AdvReac Vomiting Verified 03/16/18 19:56 Home Meds: Home Meds Aspirin 325 mg PO DAILY 03/20/13 [History] Carvedilol [Coreg] 12.5 mg PO BID 03/20/13 [History] Cyclobenzaprine HCl [Flexeril] 10 mg PO TID 03/20/13 [History] Gabapentin [Gralise] 600 mg PO TID 03/20/13 [History] Levothyroxine 75 mcg PO DAILY 03/20/13 [History] Lidocaine [Lidoderm] 1 patch TOP Q12H 03/20/13 [History] Lisinopril [Prinivil] 2.5 mg PO BID 09/26/13 [History] Montelukast [Singulair] 10 mg PO DAILY 03/20/13 [History] Ranitidine [Zantac] 75 mg PO BID 03/20/13 [History] Sertraline [Zoloft] 100 mg PO BEDTIME 03/20/13 [History] Ursodiol [Actigal] 600 mg PO BID 03/20/13 [History] hydrOXYzine pamoate [Vistaril] 50 mg PO Q4HR 03/20/13 [History] Fluticasone/Salmeterol [Advair 250-50 Diskus] 1 puff INH BID 04/28/16 [History] Vitamin A Palmitate [Aquasol A] 100,000 unit IM ASDIRECTED 03/03/17 [History] Albuterol [Proventil HFA] 2 puff INH BID PRN 03/04/17 [History] Ascorbic Acid [Vitamin C] 1,000 mg PO DAILY 03/04/17 [History] Fluticasone Propionate [Flonase] 1 spray NASBOTH DAILY 03/04/17 [History] Nitroglycerin 0.4 mg SL ASDIRECTED PRN 03/04/17 [History] Sennosides [Senokot] 8.6 mg PO BID 03/04/17 [History] cycloSPORINE [Restasis] 1 drop EYEBOTH BID 03/04/17 [History] Furosemide [Lasix] 20 mg PO DAILY PRN #14 tablet 03/09/17 [Rx] Magnesium Oxide 400 mg PO DAILY #100 tablet 03/09/17 [Rx] Ondansetron [Zofran ODT] 4 mg PO Q4H PRN #30 tab.dis 03/09/17 [Rx] Potassium Chloride [Klor-Con M20] 40 meq PO DAILY PRN #14 tab.er 03/09/17 [Rx] Cholecalciferol (Vitamin D3) [Vitamin D3] 1 tab PO BID 03/16/18 [History] Ergocalciferol (Vitamin D2) [Vitamin D2] 1 tab PO DAILY 03/16/18 [History] Lubiprostone [Amitiza] 1 tab PO BID 03/16/18 [History] Methadone 1 tab PO QPM 03/16/18 [History] Methadone 2.5 mg PO ACBREAKFAST 03/16/18 [History] Past Medical History HEENT History: Reports: Allergic Rhinitis, Impaired Vision Cardiovascular History: Reports: Cardiomyopathy Respiratory History: Reports: Asthma Gastrointestinal History: Reports: Bowel Obstruction, Pancreatitis Other Gastrointestinal History: crohns Genitourinary History: Reports: Other (See Below) Other Genitourinary History: kidney failure "at times" 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: , 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 Musculoskeletal History: Reports: Back Pain, Chronic, Fibromyalgia, RA Neurological History: Reports: Concussion, Migraines, Reflex Sympathetic Dystrophy Psychiatric History: Reports: Anxiety, Depression Endocrine/Metabolic History: Reports: Hypothyroidism Hematologic History: Reports: B12 Deficiency Immunologic History: Reports: None Oncologic (Cancer) History: Reports: None Dermatologic History: Reports: Other (See Below) Other Dermatologic History: itchy, dry skin - Infectious Disease History Infectious Disease History: Reports: Chicken Pox, Hepatitis A, Shingles - Past Surgical History HEENT Surgical History: Reports: Other (See Below) Other HEENT Surgeries/Procedures: trabeculectomy bilateral eyes for glaucoma. brow and eye lift Cardiovascular Surgical History: Reports: None Respiratory Surgical History: Reports: None GI Surgical History: Reports: Bariatric Procedure, Cholecystectomy, Colonoscopy , Hernia Repair/Other, Other (See Below) Other GI Surgeries/Procedures: bowel resection Female Surgical History: Reports: None Endocrine Surgical History: Reports: None Neurological Surgical History: Reports: Spinal Fusion, Other (See Below) Other Neurological Surgeries/Procedures: L1-S1 Musculoskeletal Surgical History: Reports: None Oncologic Surgical History: Reports: None Dermatological Surgical History: Reports: None Social & Family History - Family History Family Medical History: Noncontributory - Tobacco Use Smoking Status *Q: Never Smoker - Caffeine Use Caffeine Use: Reports: Coffee, Soda Caffeine Use Comment: drinks 2-6 cans of diet coke daily - Recreational Drug Use Recreational Drug Use: No ED ROS GENERAL - Review of Systems Review Of Systems: See Below Constitutional: Reports: Fever, Chills, Malaise, Fatigue HEENT: Reports: Throat Pain Respiratory: Reports: Shortness of Breath, Wheezing, Cough Cardiovascular: Denies: Chest Pain GI/Abdominal: Denies: Abdominal Pain Skin: Denies: Rash ED EXAM, GENERAL - Physical Exam Exam: See Below Exam Limited By: No Limitations General Appearance: Alert, WD/WN, No Apparent Distress Ears: Normal External Exam, Normal Canal, Hearing Grossly Normal, Normal TMs Nose: Normal Inspection, Normal Mucosa Throat/Mouth: Normal Inspection, Normal Lips, Normal Teeth, Normal Gums, Normal Oropharynx, Normal Voice Head: Atraumatic, Normocephalic Neck: Normal Inspection, Supple, Non-Tender. No: Lymphadenopathy (R), Lymphadenopathy (L) Respiratory/Chest: No Respiratory Distress, Lungs Clear, Rhonchi (rt upper), Wheezing (scattered). No: Crackles Cardiovascular: No Edema, Bradycardia Back Exam: Normal Inspection, Full Range of Motion Neurological: Alert, Oriented, CN II-XII Intact Psychiatric: Normal Affect, Normal Mood Skin Exam: Warm, Dry, Intact. No: Rash Course - Vital Signs Last Recorded V/S: Last Vital Signs Temp 35.9 C 03/16/18 20:06 Pulse 38 L 03/16/18 20:48 Resp 14 03/16/18 20:06 BP 141/89 H 03/16/18 20:48 Pulse Ox 96 03/16/18 20:48 - Orders/Labs/Meds Orders: Active Orders 24 hr Category Date Time Status RT Aerosol Therapy [RC] ASDIRECTED Care 03/16/18 20:28 Active Sodium Chloride 0.9% [Normal Saline] 1,000 ml Med 03/16/18 20:30 Active IV ASDIRECTED Medication Orders Sodium Chloride (Normal Saline) 1,000 mls @ 999 mls/hr IV ASDIRECTED LAMONT Last Admin: 03/16/18 20:50 Dose: 999 mls/hr Labs: Laboratory Tests 03/16/18 Range/Units 20:53 WBC 7.9 (4.5-11.0) K/uL RBC 4.79 (3.30-5.50) M/uL Hgb 13.9 (12.0-15.0) g/dL Hct 43.0 (36.0-48.0) % MCV 90 (80-98) fL MCH 29 (27-31) pg MCHC 32 (32-36) % Plt Count 324 (150-400) K/uL Neut % (Auto) 51 (36-66) % Lymph % (Auto) 36 (24-44) % [place] % (Auto) 10 H (2-6) % Eos % (Auto) 3 (2-4) % Baso % (Auto) 1 (0-1) % Meds: Medications Generic Name Dose Route Start Last Admin Trade Name Freq PRN Reason Stop Dose Admin Sodium Chloride 1,000 mls @ 999 mls/hr 03/16/18 20:30 03/16/18 20:50 Normal Saline IV 999 mls/hr ASDIRECTED LAMONT Administration Discontinued Medications Generic Name Dose Route Start Last Admin Trade Name Xiang PRN Reason Stop Dose Admin Albuterol/Ipratropium 3 ml 03/16/18 20:28 03/16/18 20:50 Duoneb 3.0-0.5 Mg/3 Ml NEB 03/16/18 20:29 3 ml ONETIME ONE Administration - Re-Assessments/Exams Free Text/Narrative Re-Assessment/Exam: 03/16/18 21:28 ease in resp after neb with clear of wheezing. pt reports relief in resp difficulty. WBC normal. will dc home doxycycline 100 mg twice daily for 10 days Departure - Departure Time of Disposition: 21:29 Disposition: Home, Self-Care 01 Condition: Good Clinical Impression: Lower respiratory infection (e.g., bronchitis, pneumonia, pneumonitis, pulmonitis) Acute bronchiolitis Qualifiers: Bronchiolitis organism: unspecified organism Qualified Code(s): J21.9 - Acute bronchiolitis, unspecified - Discharge Information *PRESCRIPTION DRUG MONITORING PROGRAM REVIEWED*: Not Applicable *COPY OF PRESCRIPTION DRUG MONITORING REPORT IN PATIENT JESSY: Not Applicable Instructions: You've Been Prescribed Antibiotics in the Hospital for Infection- [facility] (10/10) Referrals: PCP,None [Primary Care Provider] - Forms: ED Department Discharge Additional Instructions: doxycycline 100 mg twice daily for 10 days increase fluid intake continue use of albuterol as needed for cough and shortness of breath follow-up with primary care doctor if no improvement in 48 hour - My Orders Last 24 Hours: My Active Orders 03/16/18 20:28 RT Aerosol Therapy [RC] ASDIRECTED 03/16/18 20:30 Sodium Chloride 0.9% [Normal Saline] 1,000 ml IV ASDIRECTED - Assessment/Plan Last 24 Hours: My Active Orders 03/16/18 20:28 RT Aerosol Therapy [RC] ASDIRECTED 03/16/18 20:30 Sodium Chloride 0.9% [Normal Saline] 1,000 ml IV ASDIRECTED
[2018-03-16 21:28] VITALS: BP 130/58
== END 2018-03-16 22:08 | disposition home or self-care (01) ==
LOC: JP.ED 19:13
DX: J21.9 Acute bronchiolitis, unspecified (principal); E03.9 Hypothyroidism, unspecified; Z88.8 Allergy status to other drugs, medicaments and biological substances; Z79.82 Long term (current) use of aspirin; Z79.899 Other long term (current) drug therapy
CPT/HCPCS: 36415; 85025; 94640; 96360; 99285; J7030; J7620-GY

== ENCOUNTER 2019-07-09 11:18 | Emergency (ER) | payer MEDICARE, OTHER ==
[2019-07-09 11:39] VITALS: BP 126/72; PULSE 84
--- NOTE | 2019-07-09 12:54 | EDM.PDOC ---
ED HPI GENERAL MEDICAL PROBLEM - General Chief Complaint: ENT Problem Stated Complaint: SINUS INFECTION, SOB Time Seen by Provider: 07/09/19 12:51 Source of Information: Reports: Patient History Limitations: Reports: No Limitations - History of Present Illness INITIAL COMMENTS - FREE TEXT/NARRATIVE: pt arrived with a history of sinus pain and particular pain in the upper teeth. She has been blowing out and coughing up yellow chunky sputum. Onset: Today, Gradual, Other (pt has been having facial pain for several days. ) Duration: Hour(s): Location: Reports: Face, Chest, Generalized Associated Symptoms: Reports: Cough, Headaches, Shortness of Breath, Weakness sinus pain Pain Score (Numeric/FACES): 8 - Related Data Allergies Allergy/AdvReac Type Severity Reaction Status Date / Time diclofenac potassium Allergy Severe Anaphylactic Verified 03/16/18 19:56 [From Cataflam] Shock duloxetine HCl Allergy Severe Anaphylactic Verified 03/16/18 19:56 [From Cymbalta] Shock hydromorphone HCl Allergy Severe Anaphylactic Verified 03/16/18 19:56 [From Dilaudid] Shock nabumetone [From Relafen] Allergy Severe Anaphylactic Verified 03/16/18 19:56 Shock prochlorperazine edisylate Allergy Severe Anaphylactic Verified 03/16/18 19:56 [From Compazine] Shock prochlorperazine maleate Allergy Severe Anaphylactic Verified 03/16/18 19:56 [From Compazine] Shock rofecoxib [From Vioxx] Allergy Severe Anaphylactic Verified 03/16/18 19:56 Shock diclofenac [From Cataflam] Allergy Hives Verified 03/16/18 19:56 peach AdvReac Vomiting Verified 03/16/18 19:56 Home Meds: Home Meds Aspirin 325 mg PO DAILY 03/20/13 [History] Cyclobenzaprine HCl [Flexeril] 10 mg PO TID 03/20/13 [History] Gabapentin [Gralise] 600 mg PO TID 03/20/13 [History] Levothyroxine 75 mcg PO DAILY 03/20/13 [History] Lidocaine [Lidoderm] 1 patch TOP Q12H 03/20/13 [History] Montelukast [Singulair] 10 mg PO DAILY 03/20/13 [History] Ranitidine [Zantac] 75 mg PO BID 03/20/13 [History] Sertraline [Zoloft] 100 mg PO BEDTIME 03/20/13 [History] Ursodiol [Actigal] 600 mg PO BID 03/20/13 [History] carvediloL [Coreg] 12.5 mg PO BID 03/20/13 [History] hydrOXYzine pamoate [Vistaril] 50 mg PO Q4HR 03/20/13 [History] lisinopriL [Prinivil] 2.5 mg PO BID 03/20/13 [History] Fluticasone/Salmeterol [Advair 250-50 Diskus] 1 puff INH BID 04/28/16 [History] Vitamin A Palmitate [Aquasol A] 100,000 unit IM ASDIRECTED 03/03/17 [History] Albuterol [Proventil HFA] 2 puff INH BID PRN 03/04/17 [History] Ascorbic Acid [Vitamin C] 1,000 mg PO DAILY 03/04/17 [History] Fluticasone Propionate [Flonase] 1 spray NASBOTH DAILY 03/04/17 [History] Nitroglycerin 0.4 mg SL ASDIRECTED PRN 03/04/17 [History] Sennosides [Senokot] 8.6 mg PO BID 03/04/17 [History] cycloSPORINE [Restasis] 1 drop EYEBOTH BID 03/04/17 [History] Furosemide [Lasix] 20 mg PO DAILY PRN #14 tablet 03/09/17 [Rx] Magnesium Oxide 400 mg PO DAILY #100 tablet 03/09/17 [Rx] Potassium Chloride [Klor-Con M20] 40 meq PO DAILY PRN #14 tab.er 03/09/17 [Rx] Cholecalciferol (Vitamin D3) [Vitamin D3] 1 tab PO BID 03/16/18 [History] Ergocalciferol (Vitamin D2) [Vitamin D2] 1 tab PO DAILY 03/16/18 [History] Lubiprostone [Amitiza] 1 tab PO BID 03/16/18 [History] Amylase/Lipase/Protease [Ying ACOSTA 24,000 Unit] 1 cap PO QID 07/09/19 [History] Calcium Carb/Vitamin D3/Vit K1 [Calcium + D Soft Chewable Tab] 1 each PO DAILY 07/09/19 [History] Celecoxib [CeleBREX] 200 mg PO DAILY 07/09/19 [History] Copper Gluconate [Copper] 2 mg PO DAILY 07/09/19 [History] Cyanocobalamin (Vitamin B12) [Vitamin B12] 1,000 mcg IJ ASDIRECTED 07/09/19 [ History] Fish Oil/DHA/EPA [Fish Oil 1,200 MG] 1 each PO DAILY 07/09/19 [History] Iron 65 mg PO DAILY 07/09/19 [History] Lactobacillus Acidophilus [Acidophilus] 1 each PO DAILY 07/09/19 [History] Lursodiol 300 Mg 600 mg PO BID 07/09/19 [History] Multivitamin/Iron/Folic Acid [Centrum Adults Tablet] 2 each PO DAILY 07/09/19 [ History] Phytonadione (Vit K1) [Vitamin K1] 1 mg IJ ASDIRECTED 07/09/19 [History] Pyridoxine HCl (Vitamin B6) [Vitamin B-6] 100 mg PO DAILY 07/09/19 [History] Sucralfate 1 gm PO QID 07/09/19 [History] Thiamine [Vitamin B-1] 600 mg PO DAILY 07/09/19 [History] Vitamin A [id number] 2ml 2 ml IM ASDIRECTED 07/09/19 [History] Vitamin E 400 unit PO DAILY 07/09/19 [History] traMADol [Ultram] 50 mg PO Q6H PRN 07/09/19 [History] traZODone HCl [Trazodone HCl] 50 mg PO BEDTIME 07/09/19 [History] Past Medical History HEENT History: Reports: Allergic Rhinitis, Impaired Vision, Sinusitis Cardiovascular History: Reports: CAD, Cardiomyopathy, Hypertension Respiratory History: Reports: Asthma, Bronchitis, Recurrent, SOB Gastrointestinal History: Reports: Bowel Obstruction, Pancreatitis Other Gastrointestinal History: crohns Genitourinary History: Reports: Other (See Below) Other Genitourinary History: kidney failure "at times" 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: , 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 Musculoskeletal History: Reports: Back Pain, Chronic, Fibromyalgia, RA Neurological History: Reports: Concussion, Migraines, Reflex Sympathetic Dystrophy Psychiatric History: Reports: Anxiety, Depression Endocrine/Metabolic History: Reports: Hypothyroidism Hematologic History: Reports: B12 Deficiency, Other (See Below) Other Hematologic History: low ferritin Immunologic History: Reports: Other (See Below) Other Immunologic History: lupus Oncologic (Cancer) History: Reports: None Dermatologic History: Reports: Other (See Below) Other Dermatologic History: itchy, dry skin - Infectious Disease History Infectious Disease History: Reports: Chicken Pox, Hepatitis A, Influenza - Past Surgical History HEENT Surgical History: Reports: Other (See Below) Other HEENT Surgeries/Procedures: trabeculectomy bilateral eyes for glaucoma. brow and eye lift Cardiovascular Surgical History: Reports: None Respiratory Surgical History: Reports: None GI Surgical History: Reports: Bariatric Procedure, Cholecystectomy, Colonoscopy , Hernia Repair/Other, Other (See Below) Other GI Surgeries/Procedures: bowel resection Female Surgical History: Reports: None Endocrine Surgical History: Reports: None Neurological Surgical History: Reports: Laminectomy, Spinal Fusion, Other (See Below) Other Neurological Surgeries/Procedures: L1-S1 Musculoskeletal Surgical History: Reports: None Oncologic Surgical History: Reports: None Dermatological Surgical History: Reports: None Social & Family History - Family History Family Medical History: Noncontributory - Tobacco Use Smoking Status *Q: Former Smoker Used Tobacco, but Quit: Yes Month/Year Tobacco Last Used: 35 years - Caffeine Use Caffeine Use: Reports: Coffee, Soda Caffeine Use Comment: drinks 2-6 cans of diet coke daily - Recreational Drug Use Recreational Drug Use: No ED ROS ENT - Review of Systems Review Of Systems: See Below Constitutional: Reports: Chills, Malaise, Weakness HEENT: Reports: Throat Pain, Other (pt is having alot of sinus pain particularly on the left. ) Respiratory: Reports: Shortness of Breath, Wheezing, Cough, Sputum Cardiovascular: Reports: No Symptoms Endocrine: Reports: No Symptoms GI/Abdominal: Reports: No Symptoms : Reports: No Symptoms Musculoskeletal: Reports: No Symptoms Skin: Reports: No Symptoms Neurological: Reports: No Symptoms ED EXAM, ENT - Physical Exam Exam: See Below Text/Narrative:: pt arrived feeling like she had a sinus infection and she had alot of facial pain. She also had pain in her upper gum line. Exam Limited By: No Limitations General Appearance: Alert, Anxious, Moderate Distress Ears: Normal TMs Nose: Normal Inspection Mouth/Throat: Other (no redness) Head: Atraumatic, Other (pt had marked facial pain over the maxillary sinus. This was particularly true on the left. ) Neck: Normal Inspection Respiratory/Chest: Decreased Breath Sounds, Wheezing Cardiovascular: Regular Rate, Rhythm GI/Abdominal: Other (mild chronic tenderness) (Female) Exam: Deferred Rectal (Female) Exam: Deferred Back: Normal Inspection Extremities: Normal Inspection Course - Vital Signs Last Recorded V/S: Last Vital Signs Temp 36.8 C 07/09/19 11:37 Pulse 84 07/09/19 11:37 Resp 18 07/09/19 11:31 BP 126/72 07/09/19 11:37 Pulse Ox 97 07/09/19 11:37 - Orders/Labs/Meds Orders: Active Orders 24 hr Category Date Time Status RT Aerosol Therapy [RC] ASDIRECTED Care 07/09/19 13:38 Ordered Chest 2V [CR] Stat Exams 07/09/19 13:01 Taken Labs: Laboratory Tests 07/09/19 07/09/19 07/09/19 Range/Units 12:20 12:20 12:51 WBC 9.8 (4.5-11.0) K/uL RBC 4.44 (3.30-5.50) M/uL Hgb 13.3 (12.0-15.0) g/dL Hct 41.9 (36.0-48.0) % MCV 94 (80-98) fL MCH 30 (27-31) pg MCHC 32 (32-36) % Plt Count 273 (150-400) K/uL Neut % (Auto) 69 H (36-66) % Lymph % (Auto) 19 L (24-44) % Ray % (Auto) 10 H (2-6) % Eos % (Auto) 2 (2-4) % Baso % (Auto) 0 (0-1) % Sodium 139 L (140-148) mmol/L Potassium 4.4 (3.6-5.2) mmol/L Chloride 101 (100-108) mmol/L Carbon Dioxide 30 (21-32) mmol/L Anion Gap 12.4 (5.0-14.0) mmol/L BUN 15 (7-18) mg/dL Creatinine 0.7 (0.6-1.0) mg/dL Est Cr Clr Drug Dosing 93.78 mL/min Estimated GFR (MDRD) > 60 (>60) Glucose 88 (74-106) mg/dL Calcium 8.5 (8.5-10.1) mg/dL Total Bilirubin 1.8 H D (0.2-1.0) mg/dL AST 13 L (15-37) U/L ALT 23 (12-78) U/L Alkaline Phosphatase 116 (46-116) U/L C-Reactive Protein 0.67 H (0.0-0.3) mg/dL NT-Pro-B Natriuret Pep 182 H (5-125) pg/mL Total Protein 7.3 (6.4-8.2) g/dL Albumin 3.5 (3.4-5.0) g/dL Globulin 3.8 H (2.3-3.5) g/dL Albumin/Globulin Ratio 0.9 L (1.2-2.2) Urine Color (YELLOW) Urine Appearance (CLEAR) Urine pH (5.0-8.0) Ur Specific [place] (1.008-1.030) Urine Protein (NEGATIVE) mg/dL Urine Glucose (UA) (NEGATIVE) mg/dL Urine Ketones (NEGATIVE) mg/dL Urine Occult Blood (NEGATIVE) Urine Nitrite (NEGATIVE) Urine Bilirubin (NEGATIVE) Urine Urobilinogen (0.2-1.0) EU/dL Ur Leukocyte Esterase (NEGATIVE) Urine RBC (0-5) Urine WBC (0-5) Ur Epithelial Cells Amorphous Sediment Urine Bacteria Urine Mucus 07/09/19 Range/Units 13:19 WBC (4.5-11.0) K/uL RBC (3.30-5.50) M/uL Hgb (12.0-15.0) g/dL Hct (36.0-48.0) % MCV (80-98) fL MCH (27-31) pg MCHC (32-36) % Plt Count (150-400) K/uL Neut % (Auto) (36-66) % Lymph % (Auto) (24-44) % Ray % (Auto) (2-6) % Eos % (Auto) (2-4) % Baso % (Auto) (0-1) % Sodium (140-148) mmol/L Potassium (3.6-5.2) mmol/L Chloride (100-108) mmol/L Carbon Dioxide (21-32) mmol/L Anion Gap (5.0-14.0) mmol/L BUN (7-18) mg/dL Creatinine (0.6-1.0) mg/dL Est Cr Clr Drug Dosing mL/min Estimated GFR (MDRD) (>60) Glucose (74-106) mg/dL Calcium (8.5-10.1) mg/dL Total Bilirubin (0.2-1.0) mg/dL AST (15-37) U/L ALT (12-78) U/L Alkaline Phosphatase (46-116) U/L C-Reactive Protein (0.0-0.3) mg/dL NT-Pro-B Natriuret Pep (5-125) pg/mL Total Protein (6.4-8.2) g/dL Albumin (3.4-5.0) g/dL Globulin (2.3-3.5) g/dL Albumin/Globulin Ratio (1.2-2.2) Urine Color Yellow (YELLOW) Urine Appearance Clear (CLEAR) Urine pH 5.5 (5.0-8.0) Ur Specific [place] 1.020 (1.008-1.030) Urine Protein Negative (NEGATIVE) mg/dL Urine Glucose (UA) Negative (NEGATIVE) mg/dL Urine Ketones Trace H (NEGATIVE) mg/dL Urine Occult Blood Negative (NEGATIVE) Urine Nitrite Negative (NEGATIVE) Urine Bilirubin Small H (NEGATIVE) Urine Urobilinogen 1.0 (0.2-1.0) EU/dL Ur Leukocyte Esterase Negative (NEGATIVE) Urine RBC Not seen (0-5) Urine WBC 0-5 (0-5) Ur Epithelial Cells Rare Amorphous Sediment Rare Urine Bacteria Rare Urine Mucus Many Meds: Medications Discontinued Medications Generic Name Dose Route Start Last Admin Trade Name Freq PRN Reason Stop Dose Admin Albuterol 2.5 mg 07/09/19 13:37 Proventil Neb Soln NEB 07/09/19 13:38 ONETIME ONE Ceftriaxone Sodium 1 gm/ 0 gm 07/09/19 13:37 Lidocaine HCl 2.1 ml IM 07/09/19 13:38 ONETIME ONE - Re-Assessments/Exams Free Text/Narrative Re-Assessment/Exam: 07/09/19 13:43 pt has a normal wbc and a normal bnp. Her chest xray has chronic changes but not definite effusions or infiltrates. Departure - Departure Time of Disposition: 13:44 Disposition: Home, Self-Care 01 Condition: Fair Clinical Impression: Sinusitis, Bronchitis - Discharge Information Referrals: PCP,None [Primary Care Provider] - Forms: ED Department Discharge Care Plan Goals: cool mist humidfier, albterol neb q6h for the next 2 weeks. augmentin 875 bid. Eat alot of yogurt and pribiotic while she is on the antibiotic. push fluids. rtc if increased problems. Sepsis Event Note - Evaluation Sepsis Screening Result: No Definite Risk - Focused Exam Vital Signs: Vital Signs Temp Pulse Resp BP Pulse Ox 07/09/19 11:37 36.8 C 84 126/72 97 07/09/19 11:31 36.8 C 84 18 126/72 97 Date Exam was Performed: 07/09/19 Time Exam was Performed: 13:38 - My Orders Last 24 Hours: My Active Orders 07/09/19 13:01 Chest 2V [CR] Stat 07/09/19 13:38 RT Aerosol Therapy [RC] ASDIRECTED - Assessment/Plan Last 24 Hours: My Active Orders 07/09/19 13:01 Chest 2V [CR] Stat 07/09/19 13:38 RT Aerosol Therapy [RC] ASDIRECTED
[2019-07-09] MEDS ORDERED: Albuterol 0.083% 2.5 MG/3 ML Neb Soln NEB ONE (13:37)
[2019-07-09] MEDS ORDERED: cefTRIAXone 1 GM, Lidocaine 1% 2.1 ML IM ONE ×2 (13:37)
--- NOTE | 2019-07-10 09:36 | CRLCR ---
INDICATION: Dyspnea. COMPARISON: 03/16/2017. TECHNIQUE: PA and lateral views of the chest were acquired. FINDINGS: TUBES AND LINES: Dorsal column stimulator. HEART AND MEDIASTINUM: The heart size is normal. The mediastinal contour appears normal for patient age. LUNGS AND PLEURAL SPACES: The lungs appear normal. There pleural spaces are unremarkable. OSSEOUS STRUCTURES: Extensive postoperative changes of the spine. IMPRESSION: No evidence of active pulmonary disease. Rinku Angel M.D. Body/Diagnostic Radiologist [email or web address] MONSTER/maria luz braga/Dictated by: Rinku Angel MD @ 07/09/2019 1:24:00 PM (Electronically Signed)
== END 2019-07-09 14:21 | disposition home or self-care (01) ==
LOC: JP.ED 11:18
DX: J32.9 Chronic sinusitis, unspecified (principal); J40 Bronchitis, not specified as acute or chronic; I10 Essential (primary) hypertension; I25.10 Atherosclerotic heart disease of native coronary artery without angina pectoris; M06.9 Rheumatoid arthritis, unspecified; F41.9 Anxiety disorder, unspecified; F32.9 Major depressive disorder, single episode, unspecified; E03.9 Hypothyroidism, unspecified; Z88.8 Allergy status to other drugs, medicaments and biological substances; Z91.048 Other nonmedicinal substance allergy status; Z79.82 Long term (current) use of aspirin; Z79.899 Other long term (current) drug therapy; Z87.891 Personal history of nicotine dependence
CPT/HCPCS: 36415; 71046; 80053; 81001; 83880; 85025; 86140; 94640; 96372; 99283; J0696; J2001

== ENCOUNTER 2020-01-13 16:50 | Emergency (ER) | payer MEDICARE, OTHER ==
[2020-01-13 17:08] VITALS: BP 192/101; PULSE 99
[2020-01-13] MEDS ORDERED: Ketorolac 60 MG/2 ML SDV IM ONE (17:49)
--- NOTE | 2020-01-13 17:55 | EDM.PDOC ---
<Bel Graff M - Last Filed: 01/13/20 17:50> ED HPI GENERAL MEDICAL PROBLEM - General Chief Complaint: Neck Problem Stated Complaint: PAIN IN SHOULDERS Time Seen by Provider: 01/13/20 17:50 Source of Information: Reports: Patient, RN, RN Notes Reviewed History Limitations: Reports: No Limitations - History of Present Illness INITIAL COMMENTS - FREE TEXT/NARRATIVE: 59 year old female arrives ER by private car. C/o pain in BL shoulders 04/03. Does radiate to left bicep and from left elbow to finger tips on left hand. R shoulder feels like something is ripper per pt. Pt is scheduled to receive injection in [place] in am from provider she has been seeing for quite some time. Pt is on a pain contract. Does have hydrocodone 5/325 and due for more Sunday. She stated she took a Lyrica and cymbalta on way to hospital. Indicates took her 11 hours to dress to come to hospital. Onset: Unknown/Unsure, Other (Ongoing chronic pain ) Duration: Getting Worse Location: Reports: Neck Quality: Reports: Ache, Burning, Pressure, Same as Previous Episode Severity: Severe Improves with: Reports: None Worsens with: Reports: Movement Associated Symptoms: Reports: No Other Symptoms Bilateral Shoulder Pain Score (Numeric/FACES): 8 - Related Data Allergies Allergy/AdvReac Type Severity Reaction Status Date / Time diclofenac potassium Allergy Severe Anaphylactic Verified 01/13/20 17:09 [From Cataflam] Shock duloxetine HCl Allergy Severe Anaphylactic Verified 01/13/20 17:09 [From Cymbalta] Shock hydromorphone HCl Allergy Severe Anaphylactic Verified 01/13/20 17:09 [From Dilaudid] Shock nabumetone [From Relafen] Allergy Severe Anaphylactic Verified 01/13/20 17:09 Shock prochlorperazine edisylate Allergy Severe Anaphylactic Verified 01/13/20 17:09 [From Compazine] Shock prochlorperazine maleate Allergy Severe Anaphylactic Verified 01/13/20 17:09 [From Compazine] Shock rofecoxib [From Vioxx] Allergy Severe Anaphylactic Verified 01/13/20 17:09 Shock diclofenac [From Cataflam] Allergy Hives Verified 01/13/20 17:09 peach AdvReac Vomiting Verified 01/13/20 17:09 Home Meds: Home Meds Aspirin 325 mg PO DAILY 03/20/13 [History] Cyclobenzaprine HCl [Flexeril] 10 mg PO TID 03/20/13 [History] Gabapentin [Gralise] 600 mg PO TID 03/20/13 [History] Levothyroxine 75 mcg PO DAILY 03/20/13 [History] Lidocaine [Lidoderm] 1 patch TOP Q12H 03/20/13 [History] Montelukast [Singulair] 10 mg PO DAILY 03/20/13 [History] Sertraline [Zoloft] 100 mg PO BEDTIME 03/20/13 [History] carvediloL [Coreg] 12.5 mg PO BID 03/20/13 [History] hydrOXYzine pamoate [Vistaril] 50 mg PO Q4HR 03/20/13 [History] lisinopriL [Prinivil] 2.5 mg PO BID 03/20/13 [History] ursodioL [Actigal] 600 mg PO BID 03/20/13 [History] Fluticasone Propion/Salmeterol [Advair 250-50 Diskus] 1 puff INH BID 04/28/16 [History] Vitamin A Palmitate [Aquasol A] 100,000 unit IM ASDIRECTED 03/03/17 [History] Albuterol [Proventil HFA] 2 puff INH BID PRN 03/04/17 [History] Ascorbic Acid [Vitamin C] 1,000 mg PO DAILY 03/04/17 [History] Fluticasone Propionate [Flonase] 1 spray NASBOTH DAILY 03/04/17 [History] Nitroglycerin 0.4 mg SL ASDIRECTED PRN 03/04/17 [History] Sennosides [Senokot] 8.6 mg PO BID 03/04/17 [History] cycloSPORINE [Restasis] 1 drop EYEBOTH BID 03/04/17 [History] Furosemide [Lasix] 20 mg PO DAILY PRN #14 tablet 03/09/17 [Rx] Magnesium Oxide 400 mg PO DAILY #100 tablet 03/09/17 [Rx] Potassium Chloride [Klor-Con M20] 40 meq PO DAILY PRN #14 tab.er 03/09/17 [Rx] Cholecalciferol (Vitamin D3) [Vitamin D3] 1 tab PO BID 03/16/18 [History] Ergocalciferol (Vitamin D2) [Vitamin D2] 4 tab PO BID 03/16/18 [History] Amylase/Lipase/Protease [Ying ACOSTA 24,000 Unit] 1 cap PO QID 07/09/19 [History] Calcium Carb/Vitamin D3/Vit K1 [Calcium + D Soft Chewable Tab] 1 each PO DAILY 07/09/19 [History] Celecoxib [CeleBREX] 200 mg PO DAILY 07/09/19 [History] Copper Gluconate [Copper] 2 mg PO DAILY 07/09/19 [History] Cyanocobalamin (Vitamin B12) [Vitamin B12] 1,000 mcg IJ ASDIRECTED 07/09/19 [History] Fish Oil/DHA/EPA [Fish Oil 1,200 MG] 1 each PO DAILY 07/09/19 [History] Iron 65 mg PO DAILY 07/09/19 [History] Lactobacillus Acidophilus [Acidophilus] 1 each PO DAILY 07/09/19 [History] Lursodiol 300 Mg 600 mg PO BID 07/09/19 [History] Multivitamin/Iron/Folic Acid [Centrum Adults Tablet] 2 each PO DAILY 07/09/19 [History] Phytonadione (Vit K1) [Vitamin K1] 1 mg IJ ASDIRECTED 07/09/19 [History] Pyridoxine HCl (Vitamin B6) [Vitamin B-6] 100 mg PO DAILY 07/09/19 [History] Thiamine [Vitamin B-1] 600 mg PO DAILY 07/09/19 [History] Vitamin A 74075 2ml 2 ml IM ASDIRECTED 07/09/19 [History] Vitamin E (Dl,Tocopheryl Acet) [Vitamin E] 400 unit PO DAILY 07/09/19 [History] traMADol [Ultram] 50 mg PO Q6H PRN 07/09/19 [History] traZODone HCl [Trazodone HCl] 50 mg PO BEDTIME 07/09/19 [History] DULoxetine [Cymbalta] 20 mg PO DAILY 01/13/20 [History] HYDROcodone bitartrate [Zohydro ER] 0 mg PO ASDIRECTED 01/13/20 [History] Hydrocodone/Acetaminophen [Hydrocodon-Acetaminophen 5-325] 1 each PO Q6H PRN 01/13/20 [History] Multivits&Mins/FA/Coenzyme Q10 [Aquadeks] 1 tab PO DAILY 01/13/20 [History] Pregabalin 150 mg PO TID 01/13/20 [History] Past Medical History HEENT History: Reports: Allergic Rhinitis, Impaired Vision, Sinusitis Cardiovascular History: Reports: CAD, Cardiomyopathy, Hypertension Respiratory History: Reports: Asthma, Bronchitis, Recurrent, SOB Gastrointestinal History: Reports: Bowel Obstruction, Pancreatitis Other Gastrointestinal History: crohns Genitourinary History: Reports: Other (See Below) Other Genitourinary History: kidney failure "at times" CARE PROVIDER History: Reports: , Spontaneous Musculoskeletal History: Reports: Back Pain, Chronic, Fibromyalgia, RA Neurological History: Reports: Concussion, Migraines, Reflex Sympathetic Dystrophy Psychiatric History: Reports: Anxiety, Depression Endocrine/Metabolic History: Reports: Hypothyroidism Hematologic History: Reports: B12 Deficiency, Other (See Below) Other Hematologic History: low ferritin Immunologic History: Reports: Other (See Below) Other Immunologic History: lupus Oncologic (Cancer) History: Reports: None Dermatologic History: Reports: Other (See Below) Other Dermatologic History: itchy, dry skin - Infectious Disease History Infectious Disease History: Reports: Chicken Pox, Hepatitis A, Influenza - Past Surgical History HEENT Surgical History: Reports: Other (See Below) Other HEENT Surgeries/Procedures: trabeculectomy bilateral eyes for glaucoma. brow and eye lift Cardiovascular Surgical History: Reports: None Respiratory Surgical History: Reports: None GI Surgical History: Reports: Bariatric Procedure, Cholecystectomy, Colonoscopy, Hernia Repair/Other, Other (See Below) Other GI Surgeries/Procedures: bowel resection Female Surgical History: Reports: None Endocrine Surgical History: Reports: None Neurological Surgical History: Reports: Laminectomy, Spinal Fusion, Other (See Below) Other Neurological Surgeries/Procedures: L1-S1 Musculoskeletal Surgical History: Reports: None Oncologic Surgical History: Reports: None Dermatological Surgical History: Reports: None Social & Family History - Family History Family Medical History: Noncontributory - Tobacco Use Smoking Status *Q: Never Smoker - Caffeine Use Caffeine Use: Reports: Coffee, Soda Caffeine Use Comment: drinks 2-6 cans of diet coke daily ED ROS GENERAL - Review of Systems Review Of Systems: See Below Constitutional: Reports: No Symptoms HEENT: Reports: No Symptoms Respiratory: Reports: No Symptoms Cardiovascular: Reports: No Symptoms Endocrine: Reports: No Symptoms GI/Abdominal: Reports: No Symptoms : Reports: No Symptoms Musculoskeletal: Reports: Neck Pain, Shoulder Pain, Muscle Pain, Muscle Stiffness, Other (Pt has multiple muscle and skelatal comorbidities ) Skin: Reports: No Symptoms Neurological: Reports: No Symptoms Psychiatric: Reports: No Symptoms Hematologic/Lymphatic: Reports: No Symptoms Immunologic: Reports: No Symptoms ED EXAM, UPPER BACK/NECK PAIN - Physical Exam Exam: See Below Exam Limited By: No Limitations General Appearance: Alert, Anxious, Mild Distress Throat/Mouth Exam: Normal Inspection Head Exam: Normocephalic Neck Exam: Limited Range of Motion, Painful Range of Motion, Tenderness Cardiovascular/Respiratory: Regular Rate, Rhythm, Normal Breath Sounds, No Respiratory Distress GI/Abdominal: Normal Bowel Sounds (Female) Exam: Deferred Rectal (Female) Exam: Deferred Back Exam: Decreased Range of Motion, Vertebral Tenderness Neurologic: Other (multiple skelatal and muscular comorbidities ) Psychiatric: Anxious Skin Exam: Normal Color, Warm/Dry Course - Vital Signs Text/Narrative:: Exam pt. Offer Toradol and an extra tablet for in the am if needed. Pt will d/c home and follow up with pain clinic, injection dr, and pcp Departure - Departure Time of Disposition: 17:57 Disposition: Home, Self-Care 01 Condition: Good Clinical Impression: Chronic pain Qualifiers: Chronic pain type: other chronic pain Qualified Code(s): G89.29 - Other chronic pain - Discharge Information *PRESCRIPTION DRUG MONITORING PROGRAM REVIEWED*: Not Applicable *COPY OF PRESCRIPTION DRUG MONITORING REPORT IN PATIENT JESSY: Not Applicable Instructions: Chronic Pain, Adult, Pain Medicine Instructions, [id number] Referrals: PCP,None [Primary Care Provider] - Forms: ED Department Discharge Sepsis Event Note (ED) - Evaluation Sepsis Screening Result: No Definite Risk - Problem List & Annotations (1) Neck pain SNOMED Code(s): 10392053 Code(s): M54.2 - CERVICALGIA Status: Acute Priority: High - Problem List Review Problem List Initiated/Reviewed/Updated: Yes - Assessment/Plan Assessment:: Please take medication as prescribed. Follow up with doctor or pain clinic regarding further diagnostics for neck/shoulder pain. Use ice for the acute pain or heat for chronic pain. Get plenty of rest. Drink plenty of fluids. Seek medical care if fever, shortness of breath, or life threatening problems. <Qasim Colon Last Filed: 01/15/20 14:30> Course - Vital Signs Last Recorded V/S: Last Vital Signs Temp 98.4 F 01/13/20 17:25 Pulse 99 01/13/20 17:25 Resp 16 01/13/20 17:25 BP 192/101 H 01/13/20 17:25 Pulse Ox 96 01/13/20 17:25 - Orders/Labs/Meds Meds: Medications Discontinued Medications Generic Name Dose Route Start Last Admin Trade Name Xiang PRN Reason Stop Dose Admin Ketorolac Tromethamine 60 mg 01/13/20 17:49 01/13/20 17:56 Toradol IM 01/13/20 17:50 60 mg ONETIME ONE Administration Departure - Departure Time of Disposition: 18:30 Attestation - Student - Attestation Statement Attestation Statement: I personally performed or re-performed the physical examination and medical decision making. I have verified all student documentation or findings, including history, physical exam and/or medical decision making.
== END 2020-01-13 18:30 | disposition home or self-care (01) ==
LOC: JP.ED 16:50
DX: G89.29 Other chronic pain (principal); M25.511 Pain in right shoulder; M25.512 Pain in left shoulder; I10 Essential (primary) hypertension; I25.10 Atherosclerotic heart disease of native coronary artery without angina pectoris; J45.909 Unspecified asthma, uncomplicated; F41.9 Anxiety disorder, unspecified; F32.9 Major depressive disorder, single episode, unspecified; E03.9 Hypothyroidism, unspecified; Z88.8 Allergy status to other drugs, medicaments and biological substances; Z88.5 Allergy status to narcotic agent; Z91.018 Allergy to other foods; Z79.82 Long term (current) use of aspirin; Z79.899 Other long term (current) drug therapy
CPT/HCPCS: 96372; 99283; J1885

== ENCOUNTER 2020-06-20 14:21 | Emergency (ER) | payer MEDICARE, OTHER ==
[2020-06-20] MEDS ORDERED: Ketorolac 60 MG/2 ML SDV IM ONE (15:37)
--- NOTE | 2020-06-20 15:40 | EDM.PDOC ---
ED HPI GENERAL MEDICAL PROBLEM - General Chief Complaint: General Stated Complaint: LEG/NERVE PAIN Time Seen by Provider: 06/20/20 15:27 Source of Information: Reports: Patient, Family, RN Notes Reviewed History Limitations: Reports: No Limitations - History of Present Illness INITIAL COMMENTS - FREE TEXT/NARRATIVE: 59-year-old female presents emergency department a complaint of right leg pain, she has a very complex medical history is currently being evaluate by rheumatology pain is mid calf to mid thigh encompassing around the knee on opposite sides. She states she is relatively pain-free when her knee is at rest or straight but anytime she does any bending is when the pain gets exacerbated. She has dealt with this in the past but has not lasted as long of this part icular event has been going on for 2 days. She is hoping for some pain relief with Toradol and she will follow-up with her primary care auto radiator specialist on Sunday right leg Pain Score (Numeric/FACES): 8 - Related Data Allergies Allergy/AdvReac Type Severity Reaction Status Date / Time diclofenac potassium Allergy Severe Anaphylactic Verified 06/20/20 14:48 [From Cataflam] Shock hydromorphone HCl Allergy Severe Anaphylactic Verified 06/20/20 14:48 [From Dilaudid] Shock nabumetone [From Relafen] Allergy Severe Anaphylactic Verified 06/20/20 14:48 Shock prochlorperazine edisylate Allergy Severe Anaphylactic Verified 06/20/20 14:48 [From Compazine] Shock prochlorperazine maleate Allergy Severe Anaphylactic Verified 06/20/20 14:48 [From Compazine] Shock rofecoxib [From Vioxx] Allergy Severe Anaphylactic Verified 06/20/20 14:48 Shock diclofenac [From Cataflam] Allergy Hives Verified 06/20/20 14:48 peach AdvReac Vomiting Verified 06/20/20 14:48 Home Meds: Home Meds Aspirin 325 mg PO DAILY 03/20/13 [History] Cyclobenzaprine HCl [Flexeril] 10 mg PO TID 03/20/13 [History] Levothyroxine 88 mcg PO DAILY 03/20/13 [History] Lidocaine [Lidoderm] 1 patch TOP Q12H 03/20/13 [History] Montelukast [Singulair] 10 mg PO DAILY 03/20/13 [History] Sertraline [Zoloft] 100 mg PO BEDTIME 03/20/13 [History] carvediloL [Coreg] 12.5 mg PO BID 03/20/13 [History] hydrOXYzine pamoate [Vistaril] 50 mg PO Q4HR 03/20/13 [History] lisinopriL [Prinivil] 2.5 mg PO BID 03/20/13 [History] ursodioL [Actigal] 600 mg PO BID 03/20/13 [History] Fluticasone Propion/Salmeterol [Advair 250-50 Diskus] 1 puff INH BID 04/28/16 [History] Vitamin A Palmitate [Aquasol A] 100,000 unit IM ASDIRECTED 03/03/17 [History] Albuterol [Proventil HFA] 2 puff INH BID PRN 03/04/17 [History] Ascorbic Acid [Vitamin C] 1,000 mg PO DAILY 03/04/17 [History] Fluticasone Propionate [Flonase] 1 spray NASBOTH DAILY 03/04/17 [History] Nitroglycerin 0.4 mg SL ASDIRECTED PRN 03/04/17 [History] Sennosides [Senokot] 8.6 mg PO BID 03/04/17 [History] cycloSPORINE [Restasis] 1 drop EYEBOTH BID 03/04/17 [History] Furosemide [Lasix] 20 mg PO DAILY PRN #14 tablet 03/09/17 [Rx] Magnesium Oxide 400 mg PO DAILY #100 tablet 03/09/17 [Rx] Potassium Chloride [Klor-Con M20] 40 meq PO DAILY PRN #14 tab.er 03/09/17 [Rx] Cholecalciferol (Vitamin D3) [Vitamin D3] 2 tab PO BID 03/16/18 [History] Ergocalciferol (Vitamin D2) [Vitamin D2] 4 tab PO BID 03/16/18 [History] Amylase/Lipase/Protease [Ying DR 24,000 Unit] 1 cap PO QID 07/09/19 [History] Calcium Carb/Vitamin D3/Vit K1 [Calcium + D Soft Chewable Tab] 1 each PO DAILY 07/09/19 [History] Celecoxib [CeleBREX] 200 mg PO DAILY 07/09/19 [History] Copper Gluconate [Copper] 2 mg PO DAILY 07/09/19 [History] Cyanocobalamin (Vitamin B12) [Vitamin B12] 1,000 mcg IJ ASDIRECTED 07/09/19 [History] Fish Oil/DHA/EPA [Fish Oil 1,200 MG] 1 each PO DAILY 07/09/19 [History] Iron 65 mg PO DAILY 07/09/19 [History] Lactobacillus Acidophilus [Acidophilus] 1 each PO DAILY 07/09/19 [History] Multivitamin/Iron/Folic Acid [Centrum Adults Tablet] 2 each PO DAILY 07/09/19 [History] Phytonadione (Vit K1) [Vitamin K1] 1 mg IJ ASDIRECTED 07/09/19 [History] Pyridoxine HCl (Vitamin B6) [Vitamin B-6] 100 mg PO DAILY 07/09/19 [History] Thiamine [Vitamin B-1] 600 mg PO DAILY 07/09/19 [History] Vitamin A 45607 2ml 2 ml IM ASDIRECTED 07/09/19 [History] Vitamin E (Dl,Tocopheryl Acet) [Vitamin E] 400 unit PO DAILY 07/09/19 [History] traMADol [Ultram] 50 mg PO Q6H PRN 07/09/19 [History] traZODone HCl [Trazodone HCl] 50 mg PO BEDTIME 07/09/19 [History] DULoxetine [Cymbalta] 30 mg PO DAILY 01/13/20 [History] HYDROcodone bitartrate [Zohydro ER] 10 mg PO BID 01/13/20 [History] Hydrocodone/Acetaminophen [Hydrocodon-Acetaminophen 5-325] 1 each PO Q4H 01/13/20 [History] Multivits&Mins/FA/Coenzyme Q10 [Aquadeks] 1 tab PO DAILY 01/13/20 [History] Pregabalin 150 mg PO TID 01/13/20 [History] Celecoxib [CeleBREX] 200 mg PO DAILY #30 cap 06/20/20 [Rx] Pamidronate [Aredia] 60 mg IV ASDIRECTED 06/20/20 [History] predniSONE [Prednisone] 20 mg PO DAILY #7 tablet 06/20/20 [Rx] Past Medical History HEENT History: Reports: Allergic Rhinitis, Impaired Vision, Sinusitis Cardiovascular History: Reports: CAD, Cardiomyopathy Respiratory History: Reports: Asthma, Bronchitis, Recurrent, SOB Gastrointestinal History: Reports: Bowel Obstruction, Pancreatitis Other Gastrointestinal History: crohns Genitourinary History: Reports: Other (See Below) Other Genitourinary History: kidney failure "at times", states liver failure at times also MANAGEMENT DEPARTMENT CHAIR History: Reports: , Spontaneous Musculoskeletal History: Reports: Back Pain, Chronic, Fibromyalgia, RA, Other (See Below) Other Musculoskeletal History: spinal cord stimulator Neurological History: Reports: Concussion, Migraines, Reflex Sympathetic Dystrophy Psychiatric History: Reports: Anxiety, Depression Endocrine/Metabolic History: Reports: Hypothyroidism Hematologic History: Reports: B12 Deficiency, Other (See Below) Other Hematologic History: low ferritin Immunologic History: Reports: Other (See Below) Other Immunologic History: lupus Oncologic (Cancer) History: Reports: None Dermatologic History: Reports: Other (See Below) Other Dermatologic History: itchy, dry skin - Infectious Disease History Infectious Disease History: Reports: Chicken Pox, Hepatitis A, Influenza - Past Surgical History HEENT Surgical History: Reports: Other (See Below) Other HEENT Surgeries/Procedures: trabeculectomy bilateral eyes for glaucoma. brow and eye lift Cardiovascular Surgical History: Reports: None Respiratory Surgical History: Reports: None GI Surgical History: Reports: Bariatric Procedure, Cholecystectomy, Colonoscopy, Hernia Repair/Other, Other (See Below) Other GI Surgeries/Procedures: bowel resection Female Surgical History: Reports: None Endocrine Surgical History: Reports: None Neurological Surgical History: Reports: Laminectomy, Spinal Fusion, Other (See Below) Other Neurological Surgeries/Procedures: L1-S1 Musculoskeletal Surgical History: Reports: None Other Musculoskeletal Surgeries/Procedures:: back surgery x 4 Oncologic Surgical History: Reports: None Dermatological Surgical History: Reports: None Social & Family History - Family History Family Medical History: No Pertinent Family History - Tobacco Use Tobacco Use Status *Q: Never Tobacco User - Caffeine Use Caffeine Use: Reports: Coffee, Soda Caffeine Use Comment: drinks 2-6 cans of diet coke daily - Recreational Drug Use Recreational Drug Use: No ED ROS GENERAL - Review of Systems Review Of Systems: See Below Constitutional: Reports: No Symptoms Musculoskeletal: Reports: Leg Pain ED EXAM, GENERAL - Physical Exam Exam: See Below Free Text/Narrative:: Examination of the knee I do not appreciate any erythema there is no edema she will not tolerate any type of exam pain is exacerbated with bending of the knee Exam Limited By: No Limitations General Appearance: Alert, WD/WN, No Apparent Distress Respiratory/Chest: No Respiratory Distress Course - Vital Signs Last Recorded V/S: Last Vital Signs Temp 98.3 F 06/20/20 14:46 Pulse 80 06/20/20 16:05 Resp 12 06/20/20 16:05 BP 143/74 H 06/20/20 16:05 Pulse Ox 96 06/20/20 16:05 - Orders/Labs/Meds Meds: Medications Discontinued Medications Generic Name Dose Route Start Last Admin Trade Name Xiang PRN Reason Stop Dose Admin Ketorolac Tromethamine 60 mg 06/20/20 15:37 06/20/20 16:05 Toradol IM 06/20/20 15:38 60 mg ONETIME ONE Administration Departure - Departure Time of Disposition: 16:55 Disposition: Home, Self-Care 01 Condition: Fair Clinical Impression: Right leg pain - Discharge Information Prescriptions: Celecoxib [CeleBREX] 200 mg PO DAILY #30 cap predniSONE [Prednisone] 20 mg PO DAILY #7 tablet Instructions: Pain Without a Known Cause Referrals: PCP,None [Primary Care Provider] - Forms: ED Department Discharge Additional Instructions: Prescriptions have been sent to [facility], please follow-up with your primary care next week for further evaluation Sepsis Event Note (ED) - Evaluation Sepsis Screening Result: No Definite Risk - Focused Exam Vital Signs: Vital Signs Temp Pulse Resp BP Pulse Ox 06/20/20 16:05 80 12 143/74 H 96 06/20/20 14:46 98.3 F 78 12 151/75 H 96 - Assessment/Plan Plan: Assessment Acuity = acute on chronic Site and laterality = right leg pain Etiology = unknown Manifestations = none Location of injury = Home Lab values = none Plan She had some improvement with the Toradol provided in the ED prescription written for prednisone 20 mg once a day for 7 days she will follow-up with her primary care next week This note was dictated using [employer] voice recognition software please call with any questions on syntax or grammar.
[2020-06-20 16:06] VITALS: BP 143/74; PULSE 80
== END 2020-06-20 17:30 | disposition home or self-care (01) ==
LOC: JP.ED 14:21
DX: M79.604 Pain in right leg (principal); I25.10 Atherosclerotic heart disease of native coronary artery without angina pectoris; J45.909 Unspecified asthma, uncomplicated; M06.9 Rheumatoid arthritis, unspecified; F41.9 Anxiety disorder, unspecified; F32.9 Major depressive disorder, single episode, unspecified; M32.9 Systemic lupus erythematosus, unspecified; E03.9 Hypothyroidism, unspecified; Z88.6 Allergy status to analgesic agent; Z88.5 Allergy status to narcotic agent; Z88.8 Allergy status to other drugs, medicaments and biological substances; Z91.018 Allergy to other foods; Z79.82 Long term (current) use of aspirin; Z79.899 Other long term (current) drug therapy
CPT/HCPCS: 96372; 99283; J1885

== ENCOUNTER 2022-01-25 15:09 | Emergency (ER) | payer MEDICARE, OTHER ==
[2022-01-25 15:33] VITALS: BP 151/84; PULSE 72
[2022-01-25] MEDS ORDERED: Vitamin A 100,000 Units/2 ML SDV IM ONE (16:38)
== END 2022-01-25 16:57 | disposition home or self-care (01) ==
LOC: JP.ED 15:09
DX: E50.9 Vitamin A deficiency, unspecified (principal); I25.10 Atherosclerotic heart disease of native coronary artery without angina pectoris; E78.00 Pure hypercholesterolemia, unspecified; E03.9 Hypothyroidism, unspecified; Z88.8 Allergy status to other drugs, medicaments and biological substances; Z79.82 Long term (current) use of aspirin; Z79.899 Other long term (current) drug therapy; Z87.891 Personal history of nicotine dependence
CPT/HCPCS: 96372; 99283

== ENCOUNTER 2023-04-09 16:04 | Emergency (ER) | payer MEDICARE, OTHER ==
[2023-04-09] MEDS ORDERED: Methocarbamol 500 MG Tab PO ONE (16:34)
[2023-04-09 17:27] LABS: BASOPHILS ABSOLUTE AUTO 0.03 K/uL (0.00-0.10); BASOPHILS PERCENT AUTO 0.2 % (0.1-1.3); EOSINOPHILS ABSOLUTE AUTO 0.02 K/uL (0.00-0.40); EOSINOPHILS PERCENT AUTO 0.2 % (0.0-5.4); HEMATOCRIT 37.6 % (34.3-46.0); IMMATURE GRAN ABSOLUTE AUTO 0.05 K/uL (0.00-0.23); IMMATURE GRAN PERCENT AUTO 0.4 % (0.0-0.7); LYMPHOCYTES PERCENT AUTO 8.4 % (11.4-47.7); MEAN CORPUSCULAR HEMOGLOBIN 29.8 pg (31.6-35.5); MEAN CORPUSCULAR HGB CONC 31.9 g/dL (31.6-35.5); MEAN CORPUSCULAR VOLUME 93.3 fL (81.4-99.0); MONOCYTES ABSOLUTE AUTO 0.56 K/uL (0.20-0.90); MONOCYTES PERCENT AUTO 4.3 % (3.3-12.6); NEUTROPHILS ABSOLUTE AUTO 11.32 K/uL (1.0-7.6); NEUTROPHILS PERCENT AUTO 86.5 % (40.0-78.1); PLATELET COUNT,PLT 191 K/uL (130-375); RED BLOOD CELL COUNT 4.03 M/uL (3.77-5.24); WHITE BLOOD CELL COUNT,WBC 13.1 K/uL (3.2-11.0)
[2023-04-09 17:50] LABS: ALANINE AMINOTRANSFERASE,ALT 18 U/L (12-78); ALBUMIN 3.1 g/dL (3.4-5.0); ALKALINE PHOSPHATASE 88 U/L (46-116); ANION GAP 8.2 mmol/L (5.0-14.0); ASPARTATE AMNIOTRANSFERASE,AST 20 U/L (15-37); BLOOD UREA NITROGEN,BUN 23 mg/dL (7-18); CARBON DIOXIDE,CO2 24 mmol/L (21-32); CHLORIDE,CL 108 mmol/L (100-108); CREATININE 0.7 mg/dL (0.6-1.0); EST CRCL DRUG DOSING (CG) 83.11 mL/min; ESTIMATED GFR 99 mL/min (>60); GLUCOSE RANDOM 92 mg/dL (74-106); POTASSIUM,K 4.1 mmol/L (3.6-5.2); PROTEIN TOTAL,TP 6.1 g/dL (6.4-8.2); SODIUM,NA 140 mmol/L (140-148)
[2023-04-09] MEDS ORDERED: Sodium Chloride 0.9% 500 ML IV ONE (17:51)
[2023-04-09] MEDS ORDERED: Lactated Ringers 1,000 ML IV SCH (18:00)
[2023-04-09 18:23] LABS: APPEARANCE,URINE CLEAR (CLEAR); BILIRUBIN,URINE NEGATIVE (NEGATIVE); COLOR,URINE YELLOW (YELLOW); GLUCOSE,URINE NEGATIVE (NEGATIVE); KETONES,URINE NEGATIVE (NEGATIVE); LEUKOCYTE ESTERASE,URINE NEGATIVE (NEGATIVE); NITRITE,URINE POSITIVE (NEGATIVE); OCCULT BLOOD,URINE NEGATIVE (NEGATIVE); PH,URINE 5.5 (5.0-8.0); PROTEIN,URINE TRACE mg/dL (NEGATIVE); UROBILINOGEN,URINE 0.2 EU/dL (0.2-1.0)
[2023-04-09 18:29] LABS: AMORPHOUS SEDIMENT,URINE NOT SEEN; BACTERIA,URINE MODERATE; EPITHELIAL CELLS,URINE RARE; MUCUS,URINE RARE; RBC,URINE 0-5 (0-5); WBC,URINE 0-5 (0-5)
[2023-04-09] MEDS ORDERED: cefTRIAXone 1 GM, Lidocaine 1% 2.1 ML IM ONE ×2 (18:53)
[2023-04-09 19:23] LABS: AMPHETAMINES SCREEN, URINE NEGATIVE (NEGATIVE); BARBITURATE SCREEN,URINE NEGATIVE (NEGATIVE); BENZODIAZEPINES SCREEN,URINE NEGATIVE (NEGATIVE); METHADONE SCREEN, URINE NEGATIVE (NEGATIVE); METHAMPHETAMINES SCREEN, URINE NEGATIVE (NEGATIVE); OXYCODONE SCREEN,URINE NEGATIVE (NEGATIVE); PROPOXYPHENE SCREEN,URINE NEGATIVE (NEGATIVE); THC SCREEN,URINE 50 NG/ML NEGATIVE (NEGATIVE)
[2023-04-09] MEDS ORDERED: Ibuprofen 400 MG Tab PO ONE (22:22)
[2023-04-09] MEDS ORDERED: Acetaminophen 325 MG Tab PO ONE (22:22)
[2023-04-10] MEDS ORDERED: Furosemide 20 MG Tab PO PRN (13:48)
[2023-04-10] MEDS ORDERED: Albuterol 6.7 GM Inhaler INH PRN (13:48)
[2023-04-10] MEDS ORDERED: Potassium Chloride 20 MEQ Tab.ER PO PRN (13:48)
[2023-04-10] MEDS ORDERED: [UNRECOGNIZED DRUG - OTHER] PO SCH (14:00)
[2023-04-10] MEDS ORDERED: Lisinopril 10 MG Tab PO SCH (14:00)
[2023-04-10] MEDS ORDERED: COPPER GLUCONATE 2 MG PO SCH (14:00)
[2023-04-10] MEDS ORDERED: Non-Formulary Medication 1 Each (Multivitamin/Iron/Folic Acid [Centrum Adults Tablet] 1 EA PO SCH (14:00)
[2023-04-10] MEDS ORDERED: HYDROCODONE BITARTRATE 10 MG PO SCH (14:00)
[2023-04-10] MEDS ORDERED: EPA PO SCH (14:00)
[2023-04-10] MEDS ORDERED: Montelukast 10 MG Tab PO SCH (14:00)
[2023-04-10] MEDS ORDERED: Non-Formulary Medication 1 Each (Aspirin [Aspirin] 325 MG Tablet) PO SCH (14:00)
[2023-04-10] MEDS ORDERED: PAMIDRONATE IV SCH (14:00)
[2023-04-10] MEDS ORDERED: Ursodiol 300 MG Cap PO SCH (14:00)
[2023-04-10] MEDS ORDERED: CALCIUM CARB PO SCH (14:00)
[2023-04-10] MEDS ORDERED: VITAMIN D3 PO SCH (14:00)
[2023-04-10] MEDS ORDERED: DHA PO SCH (14:00)
[2023-04-10] MEDS ORDERED: Non-Formulary Medication 1 Each (Lactobacillus Acidophilus [Acidophilus] 1 EACH Cap) PO SCH (14:00)
[2023-04-10] MEDS ORDERED: Cholecalciferol (Vitamin D3) 25 MCG Tab PO SCH (14:00)
[2023-04-10] MEDS ORDERED: Non-Formulary Medication 1 Each (Ascorbic Acid [Vitamin C] 1,000 MG Tablet) PO SCH (14:00)
[2023-04-10] MEDS ORDERED: PREGABALIN PO SCH (14:00)
[2023-04-10] MEDS ORDERED: VIT K1 PO SCH (14:00)
[2023-04-10] MEDS ORDERED: Non-Formulary Medication 1 Each (Levothyroxine [Levothyroxine] 75 MCG Tablet) PO SCH (14:00)
[2023-04-10] MEDS ORDERED: [UNRECOGNIZED DRUG - OTHER] IM SCH (14:00)
[2023-04-10] MEDS ORDERED: Cyclobenzaprine 10 MG Tab PO SCH (14:00)
[2023-04-10] MEDS ORDERED: Thiamine 100 MG Tab PO SCH (14:00)
[2023-04-10] MEDS ORDERED: VITAMIN E 400 UNIT PO SCH (14:00)
[2023-04-10] MEDS ORDERED: Fluticasone NASAL Spray 16 GM Bottle NASBOTH SCH (14:00)
[2023-04-10] MEDS ORDERED: [UNRECOGNIZED DRUG - OTHER] PO SCH (14:00)
[2023-04-10] MEDS ORDERED: Non-Formulary Medication 1 Each (Cyclosporine [Restasis] 1 EACH Each) EYEBOTH SCH (14:00)
[2023-04-10] MEDS ORDERED: PYRIDOXINE HCL 100 MG PO SCH (14:00)
[2023-04-10] MEDS ORDERED: Celecoxib 200 MG Cap PO SCH (14:00)
[2023-04-10] MEDS ORDERED: FISH OIL PO SCH (14:00)
[2023-04-10] MEDS ORDERED: DULoxetine 20 MG Cap PO SCH (14:00)
[2023-04-10] MEDS ORDERED: HYDROXYZINE PAMOATE 50 MG PO SCH (14:00)
[2023-04-10] MEDS ORDERED: LIDOCAINE TOP SCH (14:00)
[2023-04-10] MEDS ORDERED: Non-Formulary Medication 1 Each (Fluticasone Propion/Salmeterol [Advair 250-50 Diskus] 1 E INH SCH (14:00)
[2023-04-10] MEDS ORDERED: [UNRECOGNIZED DRUG - OTHER] PO SCH (14:00)
[2023-04-10] MEDS ORDERED: Non-Formulary Medication 1 Each (Carvedilol [Coreg] 25 MG Tablet) PO SCH (14:00)
[2023-04-10] MEDS ORDERED: LORazepam 0.5 MG Tab PO ONE (14:36)
[2023-04-10] MEDS ORDERED: Pregabalin 75 MG Cap PO SCH (15:30)
[2023-04-10] MEDS ORDERED: Carvedilol 12.5 MG Tab PO SCH (15:30)
[2023-04-10] MEDS ORDERED: Non-Formulary Medication 1 Each (Amylase/Lipase/Protease [Creon Dr 24,000 Unit] 1 CAP Cap. PO SCH (16:00)
[2023-04-10] MEDS ORDERED: Acetaminophen/HYDROcodone 325-5 MG Tab PO PRN (16:00)
[2023-04-10] MEDS ORDERED: Acetaminophen/HYDROcodone 325-5 MG Tab PO SCH (16:00)
[2023-04-10] MEDS: Multivitamins with Iron/Calcium/Folic Acid/Minerals Tab PO SCH (16:14)
[2023-04-10] MEDS: Vitamin B6-pyridOXINE 50 MG Tab PO SCH (16:16)
[2023-04-10] MEDS: Magnesium Oxide 400 MG Tab PO SCH (16:17)
[2023-04-10] MEDS: Ascorbic Acid 500 MG Tab PO SCH (16:17)
[2023-04-10] MEDS: DULoxetine 30 MG Cap PO SCH (16:18)
[2023-04-10] MEDS: Ergocalciferol (Vitamin D2) 1.25 MG Cap PO SCH (16:32)
[2023-04-10] MEDS ORDERED: traZODone 50 MG Tab PO SCH (21:00)
[2023-04-10] MEDS ORDERED: OLANZapine 5 MG Tab PO SCH (21:56)
[2023-04-10] MEDS ORDERED: Pregabalin 75 MG Cap PO ONE (22:37)
[2023-04-11] MEDS ORDERED: Lidocaine 4% 1 each Patch TOP SCH (09:00)
[2023-04-11] MEDS ORDERED: Levothyroxine 88 MCG Tab PO SCH (09:00)
[2023-04-11] MEDS ORDERED: Calcium Carbonate/Vitamin D3 1500 MG-400 Units Tab PO SCH (09:00)
[2023-04-11] MEDS: Ascorbic Acid 500 MG Tab PO SCH (09:31)
[2023-04-11] MEDS: Magnesium Oxide 400 MG Tab PO SCH (09:32)
[2023-04-11] MEDS: Ergocalciferol (Vitamin D2) 1.25 MG Cap PO SCH (09:32)
[2023-04-11] MEDS: DULoxetine 30 MG Cap PO SCH ×2 (09:32→23:11)
[2023-04-11] MEDS: Multivitamins with Iron/Calcium/Folic Acid/Minerals Tab PO SCH (09:32)
[2023-04-11] MEDS: Vitamin B6-pyridOXINE 50 MG Tab PO SCH (09:32)
[2023-04-11] MEDS: Amylase/Lipase/Protease 6,000 Unit Cap.CR PO SCH ×2 (12:09→17:23)
[2023-04-11] MEDS ORDERED: OLANZapine 5 MG Tab PO SCH (21:00)
[2023-04-11] MEDS ORDERED: risperiDONE 1 MG Tab PO SCH (21:00)
[2023-04-11] MEDS ORDERED: OLANZapine 10 MG Vial IM ONE (21:49)
[2023-04-11] MEDS: risperiDONE 1 MG Tab PO SCH (23:12)
[2023-04-12] MEDS: Acetaminophen/HYDROcodone 325-5 MG Tab PO PRN ×2 (00:57→05:37)
[2023-04-12] MEDS ORDERED: Pregabalin 75 MG Cap PO ONE (01:19)
[2023-04-12 01:36] LABS: BASOPHILS ABSOLUTE AUTO 0.04 K/uL (0.00-0.10); BASOPHILS PERCENT AUTO 0.8 % (0.1-1.3); EOSINOPHILS ABSOLUTE AUTO 0.15 K/uL (0.00-0.40); EOSINOPHILS PERCENT AUTO 3.1 % (0.0-5.4); HEMATOCRIT 36.1 % (34.3-46.0); HEMOGLOBIN 11.5 g/dL (11.2-15.5); IMMATURE GRAN ABSOLUTE AUTO 0.02 K/uL (0.00-0.23); IMMATURE GRAN PERCENT AUTO 0.4 % (0.0-0.7); LYMPHOCYTES ABSOLUTE AUTO 1.75 K/uL (0.8-3.3); LYMPHOCYTES PERCENT AUTO 35.9 % (11.4-47.7); MEAN CORPUSCULAR HEMOGLOBIN 29.6 pg (31.6-35.5); MEAN CORPUSCULAR HGB CONC 31.9 g/dL (31.6-35.5); MONOCYTES ABSOLUTE AUTO 0.37 K/uL (0.20-0.90); MONOCYTES PERCENT AUTO 7.6 % (3.3-12.6); NEUTROPHILS ABSOLUTE AUTO 2.54 K/uL (1.0-7.6); NEUTROPHILS PERCENT AUTO 52.2 % (40.0-78.1); PLATELET COUNT,PLT 188 K/uL (130-375); RED BLOOD CELL COUNT 3.88 M/uL (3.77-5.24); WHITE BLOOD CELL COUNT,WBC 4.9 K/uL (3.2-11.0)
[2023-04-12] MEDS ORDERED: Pregabalin 50 MG Cap PO ONE (01:40)
[2023-04-12] MEDS ORDERED: Pregabalin 100 MG Cap PO STA (01:40)
[2023-04-12 01:50] LABS: ANION GAP 5.9 mmol/L (5.0-14.0); C-REACTIVE PROTEIN 1.82 mg/dL (0.0-0.3); CALCIUM 7.6 mg/dL (8.5-10.1); CREATININE 0.7 mg/dL (0.6-1.0); EST CRCL DRUG DOSING (CG) 83.11 mL/min; POTASSIUM,K 3.7 mmol/L (3.6-5.2)
[2023-04-12] MEDS: risperiDONE 1 MG Tab PO SCH (08:53)
[2023-04-12] MEDS: Nitrofurantoin Monohydrate/Macrocrystalline 100 MG Cap PO SCH ×3 (08:53→20:33)
[2023-04-12] MEDS: Amylase/Lipase/Protease 6,000 Unit Cap.CR PO SCH ×4 (08:53→17:01)
[2023-04-12] MEDS: DULoxetine 30 MG Cap PO SCH (08:53)
[2023-04-12] MEDS: Multivitamins with Iron/Calcium/Folic Acid/Minerals Tab PO SCH (08:54)
[2023-04-12] MEDS: Ascorbic Acid 500 MG Tab PO SCH (08:54)
[2023-04-12] MEDS: Magnesium Oxide 400 MG Tab PO SCH (08:54)
[2023-04-12] MEDS: Vitamin B6-pyridOXINE 50 MG Tab PO SCH (08:55)
[2023-04-12] MEDS: Levothyroxine 88 MCG Tab PO SCH (08:55)
[2023-04-12] MEDS: Calcium Carbonate/Vitamin D3 1500 MG-400 Units Tab PO SCH (08:56)
[2023-04-12] MEDS: Ergocalciferol (Vitamin D2) 1.25 MG Cap PO SCH (08:57)
[2023-04-12] MEDS ORDERED: Haloperidol 1 MG Tab PO SCH ×2 (09:00→21:00)
[2023-04-12] MEDS ORDERED: Ergocalciferol (Vitamin D2) 1.25 MG Cap PO SCH (09:00)
[2023-04-12] MEDS ORDERED: Multivitamins with Iron/Calcium/Folic Acid/Minerals Tab PO SCH (09:00)
[2023-04-12] MEDS: predniSONE 20 MG Tab PO SCH (14:25)
[2023-04-12] MEDS ORDERED: Haloperidol 1 MG Tab PO ONE (14:45)
[2023-04-12] MEDS ORDERED: Sodium Chloride 0.9% 10 ML Syringe FLUSH PRN (15:24)
[2023-04-12] MEDS ORDERED: Sodium Chloride 0.9% 75 ML IV ONE (15:24)
[2023-04-12] MEDS ORDERED: Iopamidol 755 Mg/ML 100 ML Bottle IV SCH (15:30)
[2023-04-12] MEDS: Thiamine 100 MG Tab PO SCH (20:30)
[2023-04-12] MEDS: diphenhydrAMINE 25 MG Cap PO SCH (20:30)
[2023-04-12] MEDS: LORazepam 1 MG Tab PO SCH (20:31)
[2023-04-12] MEDS: Haloperidol 5 MG Tab PO SCH (20:32)
[2023-04-13] MEDS ORDERED: predniSONE 20 MG Tab PO SCH (08:00)
[2023-04-13] MEDS: Levothyroxine 88 MCG Tab PO SCH (08:01)
[2023-04-13] MEDS: LORazepam 1 MG Tab PO SCH ×2 (08:28→21:23)
[2023-04-13] MEDS: Pantoprazole 40 MG Tab.CR PO SCH (08:28)
[2023-04-13] MEDS: Scopalamine 1mg/3day Transdermal Patch TRDERM PRN (09:12)
[2023-04-13] MEDS: Amylase/Lipase/Protease 6,000 Unit Cap.CR PO SCH ×3 (09:17→21:22)
[2023-04-13] MEDS: DULoxetine 30 MG Cap PO SCH (12:11)
[2023-04-13] MEDS: predniSONE 20 MG Tab PO SCH (12:11)
[2023-04-13] MEDS: Nitrofurantoin Monohydrate/Macrocrystalline 100 MG Cap PO SCH ×2 (12:11→21:23)
[2023-04-13] MEDS: Calcium Carbonate/Vitamin D3 1500 MG-400 Units Tab PO SCH (14:04)
[2023-04-13] MEDS: Folic Acid 1 MG Tab PO SCH (14:04)
[2023-04-13] MEDS: Ascorbic Acid 500 MG Tab PO SCH (14:05)
[2023-04-13] MEDS: Magnesium Oxide 400 MG Tab PO SCH (14:05)
[2023-04-13] MEDS: Ergocalciferol (Vitamin D2) 1.25 MG Cap PO SCH (14:05)
[2023-04-13] MEDS: Multivitamins with Iron/Calcium/Folic Acid/Minerals Tab PO SCH (14:05)
[2023-04-13] MEDS: Vitamin B6-pyridOXINE 50 MG Tab PO SCH (14:05)
[2023-04-13 15:05] LABS: A/G RATIO 0.9 (1.2-2.2); ALANINE AMINOTRANSFERASE,ALT 16 U/L (12-78); ALBUMIN 2.8 g/dL (3.4-5.0); ALKALINE PHOSPHATASE 86 U/L (46-116); ASPARTATE AMNIOTRANSFERASE,AST 20 U/L (15-37); BILIRUBIN TOTAL 0.6 mg/dL (0.2-1.0); BLOOD UREA NITROGEN,BUN 21 mg/dL (7-18); CARBON DIOXIDE,CO2 26 mmol/L (21-32); CHLORIDE,CL 103 mmol/L (100-108); CREATININE 0.6 mg/dL (0.6-1.0); EST CRCL DRUG DOSING (CG) 96.96 mL/min; ESTIMATED GFR 103 mL/min (>60); GLUCOSE RANDOM 109 mg/dL (74-106); POTASSIUM,K 3.8 mmol/L (3.6-5.2); PROTEIN TOTAL,TP 5.8 g/dL (6.4-8.2); SODIUM,NA 136 mmol/L (140-148); TSH ULTRASENSITIVE 4.703 uIU/mL (0.358-3.740)
[2023-04-13 15:09] LABS: ANION GAP 10.8 mmol/L (5.0-14.0)
[2023-04-13 16:16] LABS: APPEARANCE,URINE SLIGHTLY CLOUDY (CLEAR); BILIRUBIN,URINE NEGATIVE (NEGATIVE); COLOR,URINE YELLOW (YELLOW); GLUCOSE,URINE NEGATIVE (NEGATIVE); KETONES,URINE TRACE mg/dL (NEGATIVE); LEUKOCYTE ESTERASE,URINE NEGATIVE (NEGATIVE); NITRITE,URINE NEGATIVE (NEGATIVE); OCCULT BLOOD,URINE NEGATIVE (NEGATIVE); PH,URINE 5.5 (5.0-8.0); PROTEIN,URINE TRACE mg/dL (NEGATIVE); UROBILINOGEN,URINE 0.2 EU/dL (0.2-1.0)
[2023-04-13 16:21] LABS: AMORPHOUS SEDIMENT,URINE NOT SEEN; BACTERIA,URINE MODERATE; EPITHELIAL CELLS,URINE RARE; MUCUS,URINE NOT SEEN; RBC,URINE 0-5 (0-5); WBC,URINE 0-5 (0-5)
[2023-04-13] MEDS: Thiamine 100 MG Tab PO SCH (21:23)
[2023-04-13] MEDS: diphenhydrAMINE 25 MG Cap PO SCH (21:23)
[2023-04-13] MEDS: Haloperidol 5 MG Tab PO SCH (21:24)
[2023-04-13] MEDS ORDERED: Metoclopramide 10 MG Tab PO ONE (21:29)
[2023-04-13] MEDS ORDERED: Acetaminophen 325 MG Tab PO ONE (21:29)
[2023-04-13 23:33] LABS: RHEUMATOID FACTOR <10 IU/mL (0-14)
[2023-04-14] MEDS: Pantoprazole 40 MG Tab.CR PO SCH (07:57)
[2023-04-14] MEDS: Levothyroxine 88 MCG Tab PO SCH (07:57)
[2023-04-14] MEDS: Nitrofurantoin Monohydrate/Macrocrystalline 100 MG Cap PO SCH ×2 (08:17→21:00)
[2023-04-14] MEDS: DULoxetine 30 MG Cap PO SCH (08:17)
[2023-04-14] MEDS: Amylase/Lipase/Protease 6,000 Unit Cap.CR PO SCH ×3 (08:17→17:26)
[2023-04-14] MEDS: predniSONE 20 MG Tab PO SCH (08:18)
[2023-04-14] MEDS: Magnesium Oxide 400 MG Tab PO SCH (08:18)
[2023-04-14] MEDS: Multivitamins with Iron/Calcium/Folic Acid/Minerals Tab PO SCH (09:34)
[2023-04-14] MEDS: LORazepam 1 MG Tab PO SCH ×2 (09:34→21:01)
[2023-04-14] MEDS: Folic Acid 1 MG Tab PO SCH (09:35)
[2023-04-14] MEDS: Vitamin B6-pyridOXINE 50 MG Tab PO SCH (09:35)
[2023-04-14] MEDS: Ascorbic Acid 500 MG Tab PO SCH (09:35)
[2023-04-14] MEDS: Ergocalciferol (Vitamin D2) 1.25 MG Cap PO SCH (09:35)
[2023-04-14] MEDS: Calcium Carbonate/Vitamin D3 1500 MG-400 Units Tab PO SCH (09:36)
[2023-04-14] MEDS: Acetaminophen/HYDROcodone 325-5 MG Tab PO PRN (21:00)
[2023-04-14] MEDS: Thiamine 100 MG Tab PO SCH (21:00)
[2023-04-14] MEDS: Haloperidol 5 MG Tab PO SCH (21:01)
[2023-04-14] MEDS: diphenhydrAMINE 25 MG Cap PO SCH (21:01)
[2023-04-15] MEDS: Levothyroxine 88 MCG Tab PO SCH (07:56)
[2023-04-15] MEDS: Pantoprazole 40 MG Tab.CR PO SCH (07:56)
[2023-04-15] MEDS: LORazepam 1 MG Tab PO SCH ×2 (08:17→21:46)
[2023-04-15] MEDS: predniSONE 20 MG Tab PO SCH (08:17)
[2023-04-15] MEDS: DULoxetine 30 MG Cap PO SCH (08:17)
[2023-04-15] MEDS: Nitrofurantoin Monohydrate/Macrocrystalline 100 MG Cap PO SCH ×2 (08:18→21:45)
[2023-04-15] MEDS: Amylase/Lipase/Protease 6,000 Unit Cap.CR PO SCH ×3 (08:18→17:38)
[2023-04-15] MEDS: Multivitamins with Iron/Calcium/Folic Acid/Minerals Tab PO SCH (13:42)
[2023-04-15] MEDS: Enoxaparin 40 MG/0.4 ML Syringe SUBCUT SCH (13:43)
[2023-04-15] MEDS: Vitamin B6-pyridOXINE 50 MG Tab PO SCH (13:43)
[2023-04-15] MEDS: Magnesium Oxide 400 MG Tab PO SCH (13:43)
[2023-04-15] MEDS: Ascorbic Acid 500 MG Tab PO SCH (13:43)
[2023-04-15] MEDS: Ergocalciferol (Vitamin D2) 1.25 MG Cap PO SCH (13:44)
[2023-04-15] MEDS: Calcium Carbonate/Vitamin D3 1500 MG-400 Units Tab PO SCH (13:44)
[2023-04-15] MEDS: Folic Acid 1 MG Tab PO SCH (13:44)
[2023-04-15] MEDS: VERIFY SCOP PATCH SCH (13:45)
[2023-04-15] MEDS: Topiramate 25 MG Tab PO SCH ×2 (13:59→21:46)
[2023-04-15] MEDS: diphenhydrAMINE 25 MG Cap PO SCH (21:45)
[2023-04-15] MEDS: Haloperidol 5 MG Tab PO SCH (21:45)
[2023-04-15] MEDS: Thiamine 100 MG Tab PO SCH (21:46)
[2023-04-16] MEDS: Amylase/Lipase/Protease 6,000 Unit Cap.CR PO SCH ×3 (08:18→17:06)
[2023-04-16] MEDS: Enoxaparin 40 MG/0.4 ML Syringe SUBCUT SCH (08:19)
[2023-04-16] MEDS: Levothyroxine 88 MCG Tab PO SCH (08:21)
[2023-04-16] MEDS: predniSONE 20 MG Tab PO SCH (08:22)
[2023-04-16] MEDS: Pantoprazole 40 MG Tab.CR PO SCH (08:22)
[2023-04-16] MEDS: Magnesium Oxide 400 MG Tab PO SCH (08:23)
[2023-04-16] MEDS: Multivitamins with Iron/Calcium/Folic Acid/Minerals Tab PO SCH (08:24)
[2023-04-16] MEDS: Nitrofurantoin Monohydrate/Macrocrystalline 100 MG Cap PO SCH ×2 (08:24→20:53)
[2023-04-16] MEDS: Topiramate 25 MG Tab PO SCH ×2 (08:25→20:53)
[2023-04-16] MEDS: Vitamin B6-pyridOXINE 50 MG Tab PO SCH (08:26)
[2023-04-16] MEDS: Ascorbic Acid 500 MG Tab PO SCH (08:27)
[2023-04-16] MEDS: Ergocalciferol (Vitamin D2) 1.25 MG Cap PO SCH (08:27)
[2023-04-16] MEDS: VERIFY SCOP PATCH SCH (08:28)
[2023-04-16] MEDS: Calcium Carbonate/Vitamin D3 1500 MG-400 Units Tab PO SCH (08:29)
[2023-04-16] MEDS: DULoxetine 30 MG Cap PO SCH (08:30)
[2023-04-16] MEDS: Folic Acid 1 MG Tab PO SCH (08:30)
[2023-04-16] MEDS: LORazepam 1 MG Tab PO SCH ×2 (08:33→20:52)
[2023-04-16] MEDS: Acetaminophen/HYDROcodone 325-5 MG Tab PO PRN (19:49)
[2023-04-16] MEDS: Haloperidol 5 MG Tab PO SCH (20:52)
[2023-04-16] MEDS: diphenhydrAMINE 25 MG Cap PO SCH (20:52)
[2023-04-16] MEDS: Thiamine 100 MG Tab PO SCH (20:53)
[2023-04-16] MEDS ORDERED: Ondansetron 4 MG/2 ML SDV IVPUSH ONE (21:04)
[2023-04-16] MEDS ORDERED: Ondansetron 4 MG Tab.DIS PO ONE (21:14)
[2023-04-17] MEDS: Acetaminophen/HYDROcodone 325-5 MG Tab PO PRN ×4 (07:28→21:21)
[2023-04-17] MEDS ORDERED: hydrOXYzine HCl 25 MG Tab PO ONE (13:19)
[2023-04-17] MEDS: predniSONE 20 MG Tab PO SCH (13:46)
[2023-04-17] MEDS: LORazepam 1 MG Tab PO SCH ×2 (15:24→21:18)
[2023-04-17] MEDS: Calcium Carbonate/Vitamin D3 1500 MG-400 Units Tab PO SCH (15:24)
[2023-04-17] MEDS: Amylase/Lipase/Protease 6,000 Unit Cap.CR PO SCH ×2 (15:24→17:46)
[2023-04-17] MEDS: Magnesium Oxide 400 MG Tab PO SCH (15:25)
[2023-04-17] MEDS: VERIFY SCOP PATCH SCH (15:25)
[2023-04-17] MEDS: Folic Acid 1 MG Tab PO SCH (15:25)
[2023-04-17] MEDS: DULoxetine 30 MG Cap PO SCH (15:25)
[2023-04-17] MEDS: Pantoprazole 40 MG Tab.CR PO SCH (15:25)
[2023-04-17] MEDS: Enoxaparin 40 MG/0.4 ML Syringe SUBCUT SCH (15:25)
[2023-04-17] MEDS: Multivitamins with Iron/Calcium/Folic Acid/Minerals Tab PO SCH (15:26)
[2023-04-17] MEDS: Ascorbic Acid 500 MG Tab PO SCH (15:26)
[2023-04-17] MEDS: Vitamin B6-pyridOXINE 50 MG Tab PO SCH (15:26)
[2023-04-17] MEDS: Levothyroxine 88 MCG Tab PO SCH (15:26)
[2023-04-17] MEDS: Ergocalciferol (Vitamin D2) 1.25 MG Cap PO SCH (15:26)
[2023-04-17] MEDS: Topiramate 25 MG Tab PO SCH ×2 (15:26→21:22)
[2023-04-17] MEDS: diphenhydrAMINE 25 MG Cap PO SCH (21:19)
[2023-04-17] MEDS: Haloperidol 5 MG Tab PO SCH (21:20)
[2023-04-17] MEDS: Thiamine 100 MG Tab PO SCH (21:24)
[2023-04-17] MEDS: Scopalamine 1mg/3day Transdermal Patch TRDERM PRN (21:31)
[2023-04-18] MEDS: Amylase/Lipase/Protease 6,000 Unit Cap.CR PO SCH ×3 (12:00→17:00)
[2023-04-18] MEDS: LORazepam 1 MG Tab PO SCH ×2 (12:11→22:27)
[2023-04-18] MEDS: Levothyroxine 88 MCG Tab PO SCH (12:15)
[2023-04-18] MEDS: Pantoprazole 40 MG Tab.CR PO SCH (12:15)
[2023-04-18] MEDS: Magnesium Oxide 400 MG Tab PO SCH (12:18)
[2023-04-18] MEDS: Enoxaparin 40 MG/0.4 ML Syringe SUBCUT SCH (12:20)
[2023-04-18] MEDS: Multivitamins with Iron/Calcium/Folic Acid/Minerals Tab PO SCH (12:20)
[2023-04-18] MEDS: Topiramate 25 MG Tab PO SCH ×2 (12:20→22:26)
[2023-04-18] MEDS: Calcium Carbonate/Vitamin D3 1500 MG-400 Units Tab PO SCH (12:21)
[2023-04-18] MEDS: Ascorbic Acid 500 MG Tab PO SCH (12:21)
[2023-04-18] MEDS: DULoxetine 30 MG Cap PO SCH (12:21)
[2023-04-18] MEDS: Folic Acid 1 MG Tab PO SCH (12:21)
[2023-04-18] MEDS: Ergocalciferol (Vitamin D2) 1.25 MG Cap PO SCH (12:21)
[2023-04-18] MEDS: Vitamin B6-pyridOXINE 50 MG Tab PO SCH (12:21)
[2023-04-18] MEDS ORDERED: LORazepam 2 MG/ML SDV IM ONE (15:34)
[2023-04-18] MEDS ORDERED: Haloperidol Lactate 5 MG/ML SDV IM ONE (15:35)
[2023-04-18] MEDS: Acetaminophen/HYDROcodone 325-5 MG Tab PO PRN (22:28)
[2023-04-18] MEDS: Thiamine 100 MG Tab PO SCH (22:29)
[2023-04-18] MEDS: Haloperidol 5 MG Tab PO SCH (22:30)
[2023-04-18] MEDS: diphenhydrAMINE 25 MG Cap PO SCH ×2 (22:30→22:39)
[2023-04-19] MEDS: Acetaminophen 325 MG Tab PO PRN ×2 (01:34→21:52)
[2023-04-19] MEDS: VERIFY SCOP PATCH SCH ×2 (07:51→09:58)
[2023-04-19] MEDS ORDERED: LORazepam 2 MG/ML SDV IM ONE ×2 (09:39→14:52)
[2023-04-19] MEDS ORDERED: Haloperidol Lactate 5 MG/ML SDV IM ONE (09:40)
[2023-04-19] MEDS: LORazepam 1 MG Tab PO SCH ×2 (09:57→21:21)
[2023-04-19] MEDS: DULoxetine 30 MG Cap PO SCH (09:58)
[2023-04-19] MEDS: Magnesium Oxide 400 MG Tab PO SCH (09:58)
[2023-04-19] MEDS: Enoxaparin 40 MG/0.4 ML Syringe SUBCUT SCH (09:58)
[2023-04-19] MEDS: Calcium Carbonate/Vitamin D3 1500 MG-400 Units Tab PO SCH (09:58)
[2023-04-19] MEDS: Amylase/Lipase/Protease 6,000 Unit Cap.CR PO SCH ×4 (09:58→17:42)
[2023-04-19] MEDS: Folic Acid 1 MG Tab PO SCH (09:58)
[2023-04-19] MEDS: Pantoprazole 40 MG Tab.CR PO SCH (09:59)
[2023-04-19] MEDS: Vitamin B6-pyridOXINE 50 MG Tab PO SCH (09:59)
[2023-04-19] MEDS: Multivitamins with Iron/Calcium/Folic Acid/Minerals Tab PO SCH (09:59)
[2023-04-19] MEDS: Ascorbic Acid 500 MG Tab PO SCH (09:59)
[2023-04-19] MEDS: Levothyroxine 88 MCG Tab PO SCH (09:59)
[2023-04-19] MEDS: Topiramate 25 MG Tab PO SCH ×2 (09:59→21:54)
[2023-04-19] MEDS: Ergocalciferol (Vitamin D2) 1.25 MG Cap PO SCH (09:59)
[2023-04-19 10:16] LABS: HEMATOCRIT 41.3 % (34.3-46.0); MEAN CORPUSCULAR HGB CONC 31.5 g/dL (31.6-35.5); MEAN CORPUSCULAR VOLUME 95.4 fL (81.4-99.0); RED BLOOD CELL COUNT 4.33 M/uL (3.77-5.24); WHITE BLOOD CELL COUNT,WBC 6.5 K/uL (3.2-11.0)
[2023-04-19 10:46] LABS: ALANINE AMINOTRANSFERASE,ALT 25 U/L (12-78); ALBUMIN 3.1 g/dL (3.4-5.0); ALKALINE PHOSPHATASE 75 U/L (46-116); ASPARTATE AMNIOTRANSFERASE,AST 29 U/L (15-37); BILIRUBIN TOTAL 0.6 mg/dL (0.2-1.0); BLOOD UREA NITROGEN,BUN 35 mg/dL (7-18); CALCIUM 8.2 mg/dL (8.5-10.1); CARBON DIOXIDE,CO2 27 mmol/L (21-32); CHLORIDE,CL 105 mmol/L (100-108); CREATININE 0.8 mg/dL (0.6-1.0); EST CRCL DRUG DOSING (CG) 72.72 mL/min; ESTIMATED GFR 84 mL/min (>60); GLUCOSE RANDOM 86 mg/dL (74-106); PROTEIN TOTAL,TP 6.2 g/dL (6.4-8.2); SODIUM,NA 138 mmol/L (140-148); TSH ULTRASENSITIVE 3.836 uIU/mL (0.358-3.740)
[2023-04-19 10:54] LABS: ANION GAP 12.1 mmol/L (5.0-14.0); POTASSIUM,K 6.1 mmol/L (3.6-5.2)
[2023-04-19 15:29] LABS: APPEARANCE,URINE CLEAR (CLEAR); BILIRUBIN,URINE NEGATIVE (NEGATIVE); COLOR,URINE YELLOW (YELLOW); GLUCOSE,URINE NEGATIVE (NEGATIVE); KETONES,URINE NEGATIVE (NEGATIVE); LEUKOCYTE ESTERASE,URINE NEGATIVE (NEGATIVE); NITRITE,URINE NEGATIVE (NEGATIVE); OCCULT BLOOD,URINE NEGATIVE (NEGATIVE); PH,URINE 5.5 (5.0-8.0); PROTEIN,URINE NEGATIVE (NEGATIVE); UROBILINOGEN,URINE 0.2 EU/dL (0.2-1.0)
[2023-04-19 15:31] LABS: AMPHETAMINES SCREEN, URINE NEGATIVE (NEGATIVE); BARBITURATE SCREEN,URINE NEGATIVE (NEGATIVE); BENZODIAZEPINES SCREEN,URINE PRESUMPTIVE POSITIVE (NEGATIVE); METHADONE SCREEN, URINE NEGATIVE (NEGATIVE); METHAMPHETAMINES SCREEN, URINE NEGATIVE (NEGATIVE); OXYCODONE SCREEN,URINE NEGATIVE (NEGATIVE); PROPOXYPHENE SCREEN,URINE NEGATIVE (NEGATIVE); THC SCREEN,URINE 50 NG/ML NEGATIVE (NEGATIVE)
[2023-04-19 15:34] LABS: AMORPHOUS SEDIMENT,URINE NOT SEEN; BACTERIA,URINE RARE; EPITHELIAL CELLS,URINE RARE; MUCUS,URINE NOT SEEN; RBC,URINE 0-5 (0-5); WBC,URINE NOT SEEN (0-5)
[2023-04-19] MEDS: Acetaminophen/HYDROcodone 325-5 MG Tab PO PRN (18:14)
[2023-04-19] MEDS: Haloperidol 5 MG Tab PO SCH (21:22)
[2023-04-19] MEDS: Thiamine 100 MG Tab PO SCH (21:25)
[2023-04-19] MEDS: diphenhydrAMINE 25 MG Cap PO SCH (21:26)
[2023-04-20] MEDS ORDERED: LORazepam 2 MG/ML SDV IM ONE (08:21)
[2023-04-20] MEDS ORDERED: Haloperidol Lactate 5 MG/ML SDV IM ONE (08:21)
[2023-04-20] MEDS: Amylase/Lipase/Protease 6,000 Unit Cap.CR PO SCH ×3 (10:48→21:23)
[2023-04-20] MEDS: Calcium Carbonate/Vitamin D3 1500 MG-400 Units Tab PO SCH (10:48)
[2023-04-20] MEDS: Enoxaparin 40 MG/0.4 ML Syringe SUBCUT SCH ×2 (10:48→15:05)
[2023-04-20] MEDS: Folic Acid 1 MG Tab PO SCH (10:48)
[2023-04-20] MEDS: DULoxetine 30 MG Cap PO SCH ×2 (10:48→15:00)
[2023-04-20] MEDS: LORazepam 1 MG Tab PO SCH ×2 (10:48→21:23)
[2023-04-20] MEDS: Multivitamins with Iron/Calcium/Folic Acid/Minerals Tab PO SCH (10:49)
[2023-04-20] MEDS: Pantoprazole 40 MG Tab.CR PO SCH (10:49)
[2023-04-20] MEDS: Magnesium Oxide 400 MG Tab PO SCH (10:49)
[2023-04-20] MEDS: Levothyroxine 88 MCG Tab PO SCH ×2 (10:49→15:02)
[2023-04-20] MEDS: Ascorbic Acid 500 MG Tab PO SCH (10:50)
[2023-04-20] MEDS: Vitamin B6-pyridOXINE 50 MG Tab PO SCH (10:50)
[2023-04-20] MEDS: Topiramate 25 MG Tab PO SCH ×3 (10:50→21:23)
[2023-04-20] MEDS: Ergocalciferol (Vitamin D2) 1.25 MG Cap PO SCH (10:50)
[2023-04-20] MEDS: VERIFY SCOP PATCH SCH (16:31)
[2023-04-20] MEDS: Acetaminophen/HYDROcodone 325-5 MG Tab PO PRN (18:01)
[2023-04-20] MEDS: Thiamine 100 MG Tab PO SCH (21:23)
[2023-04-20] MEDS: Haloperidol 5 MG Tab PO SCH (21:23)
[2023-04-20] MEDS: diphenhydrAMINE 25 MG Cap PO SCH (21:23)
[2023-04-21] MEDS: Amylase/Lipase/Protease 6,000 Unit Cap.CR PO SCH ×3 (07:23→20:37)
[2023-04-21] MEDS: LORazepam 1 MG Tab PO SCH ×2 (07:24→20:34)
[2023-04-21] MEDS: Calcium Carbonate/Vitamin D3 1500 MG-400 Units Tab PO SCH (09:24)
[2023-04-21] MEDS: Ascorbic Acid 500 MG Tab PO SCH (09:30)
[2023-04-21] MEDS: Ergocalciferol (Vitamin D2) 1.25 MG Cap PO SCH (09:30)
[2023-04-21] MEDS: Vitamin B6-pyridOXINE 50 MG Tab PO SCH (09:30)
[2023-04-21] MEDS: Folic Acid 1 MG Tab PO SCH (09:30)
[2023-04-21] MEDS: Pantoprazole 40 MG Tab.CR PO SCH (09:30)
[2023-04-21] MEDS: Multivitamins with Iron/Calcium/Folic Acid/Minerals Tab PO SCH (09:30)
[2023-04-21] MEDS: Magnesium Oxide 400 MG Tab PO SCH (09:30)
[2023-04-21] MEDS: Scopalamine 1mg/3day Transdermal Patch TRDERM PRN (11:51)
[2023-04-21] MEDS: VERIFY SCOP PATCH SCH (11:52)
[2023-04-21] MEDS: Enoxaparin 40 MG/0.4 ML Syringe SUBCUT SCH (11:55)
[2023-04-21] MEDS: Levothyroxine 88 MCG Tab PO SCH (11:56)
[2023-04-21] MEDS: Topiramate 25 MG Tab PO SCH ×2 (11:56→20:33)
[2023-04-21] MEDS: DULoxetine 30 MG Cap PO SCH (11:59)
[2023-04-21] MEDS: Thiamine 100 MG Tab PO SCH (20:33)
[2023-04-21] MEDS: diphenhydrAMINE 25 MG Cap PO SCH (20:33)
[2023-04-21] MEDS: Haloperidol 5 MG Tab PO SCH (20:33)
[2023-04-22] MEDS: LORazepam 1 MG Tab PO SCH ×2 (08:07→20:54)
[2023-04-22] MEDS: Pantoprazole 40 MG Tab.CR PO SCH (08:07)
[2023-04-22] MEDS: DULoxetine 30 MG Cap PO SCH (08:07)
[2023-04-22] MEDS: Levothyroxine 88 MCG Tab PO SCH (08:07)
[2023-04-22] MEDS: Amylase/Lipase/Protease 6,000 Unit Cap.CR PO SCH ×2 (08:08→12:50)
[2023-04-22] MEDS: Acetaminophen/HYDROcodone 325-5 MG Tab PO PRN ×2 (11:15→16:10)
[2023-04-22] MEDS: Calcium Carbonate/Vitamin D3 1500 MG-400 Units Tab PO SCH (11:16)
[2023-04-22] MEDS: Folic Acid 1 MG Tab PO SCH (11:16)
[2023-04-22] MEDS: Multivitamins with Iron/Calcium/Folic Acid/Minerals Tab PO SCH (11:17)
[2023-04-22] MEDS: Ascorbic Acid 500 MG Tab PO SCH (11:17)
[2023-04-22] MEDS: Ergocalciferol (Vitamin D2) 1.25 MG Cap PO SCH (11:18)
[2023-04-22] MEDS: Enoxaparin 40 MG/0.4 ML Syringe SUBCUT SCH (11:19)
[2023-04-22] MEDS: Magnesium Oxide 400 MG Tab PO SCH (11:19)
[2023-04-22] MEDS: Topiramate 25 MG Tab PO SCH ×2 (12:50→20:54)
[2023-04-22] MEDS: Haloperidol 5 MG Tab PO SCH (20:54)
[2023-04-22] MEDS: diphenhydrAMINE 25 MG Cap PO SCH (20:54)
[2023-04-22] MEDS: Thiamine 100 MG Tab PO SCH (20:55)
[2023-04-23] MEDS: Levothyroxine 88 MCG Tab PO SCH (07:05)
[2023-04-23] MEDS: Pantoprazole 40 MG Tab.CR PO SCH (07:05)
[2023-04-23 08:27] LABS: ALANINE AMINOTRANSFERASE,ALT 18 U/L (12-78); ALBUMIN 2.8 g/dL (3.4-5.0); ALKALINE PHOSPHATASE 70 U/L (46-116); ANION GAP 8.4 mmol/L (5.0-14.0); ASPARTATE AMNIOTRANSFERASE,AST 18 U/L (15-37); BILIRUBIN TOTAL 0.7 mg/dL (0.2-1.0); BLOOD UREA NITROGEN,BUN 27 mg/dL (7-18); CARBON DIOXIDE,CO2 26 mmol/L (21-32); CHLORIDE,CL 107 mmol/L (100-108); CREATININE 0.8 mg/dL (0.6-1.0); EST CRCL DRUG DOSING (CG) 72.72 mL/min; ESTIMATED GFR 84 mL/min (>60); GLUCOSE RANDOM 82 mg/dL (74-106); POTASSIUM,K 4.1 mmol/L (3.6-5.2); PROTEIN TOTAL,TP 5.6 g/dL (6.4-8.2); SODIUM,NA 141 mmol/L (140-148)
[2023-04-23] MEDS: LORazepam 1 MG Tab PO SCH ×2 (08:29→21:10)
[2023-04-23] MEDS: Topiramate 25 MG Tab PO SCH ×2 (08:29→21:11)
[2023-04-23] MEDS: DULoxetine 30 MG Cap PO SCH (08:30)
[2023-04-23] MEDS: Amylase/Lipase/Protease 6,000 Unit Cap.CR PO SCH ×2 (08:35→12:19)
[2023-04-23] MEDS: Ergocalciferol (Vitamin D2) 1.25 MG Cap PO SCH (08:36)
[2023-04-23] MEDS: Ascorbic Acid 500 MG Tab PO SCH (08:36)
[2023-04-23] MEDS: Multivitamins with Iron/Calcium/Folic Acid/Minerals Tab PO SCH (08:37)
[2023-04-23] MEDS: Magnesium Oxide 400 MG Tab PO SCH (08:37)
[2023-04-23] MEDS: Calcium Carbonate/Vitamin D3 1500 MG-400 Units Tab PO SCH (08:39)
[2023-04-23] MEDS: Folic Acid 1 MG Tab PO SCH (08:39)
[2023-04-23] MEDS: Vitamin B6-pyridOXINE 50 MG Tab PO SCH ×2 (08:40→10:01)
[2023-04-23] MEDS: Enoxaparin 40 MG/0.4 ML Syringe SUBCUT SCH (08:42)
[2023-04-23] MEDS ORDERED: Calcium Carbonate 500 MG Tab.Chew PO ONE (09:13)
[2023-04-23] MEDS: VERIFY SCOP PATCH SCH (09:21)
[2023-04-23] MEDS: Acetaminophen/HYDROcodone 325-5 MG Tab PO PRN (13:59)
[2023-04-23] MEDS: Thiamine 100 MG Tab PO SCH (21:10)
[2023-04-23] MEDS: Haloperidol 5 MG Tab PO SCH (21:11)
[2023-04-23] MEDS: diphenhydrAMINE 25 MG Cap PO SCH (21:11)
[2023-04-24] MEDS: Pantoprazole 40 MG Tab.CR PO SCH (07:14)
[2023-04-24] MEDS: Levothyroxine 88 MCG Tab PO SCH (07:14)
[2023-04-24] MEDS: LORazepam 1 MG Tab PO SCH ×2 (08:37→20:46)
[2023-04-24] MEDS: Amylase/Lipase/Protease 6,000 Unit Cap.CR PO SCH ×4 (08:38→17:13)
[2023-04-24] MEDS: Magnesium Oxide 400 MG Tab PO SCH (08:40)
[2023-04-24] MEDS: DULoxetine 30 MG Cap PO SCH (08:40)
[2023-04-24] MEDS: Topiramate 25 MG Tab PO SCH (08:41)
[2023-04-24] MEDS: Folic Acid 1 MG Tab PO SCH (08:42)
[2023-04-24] MEDS: Ascorbic Acid 500 MG Tab PO SCH (08:44)
[2023-04-24] MEDS: Vitamin B6-pyridOXINE 50 MG Tab PO SCH (08:44)
[2023-04-24] MEDS: Ergocalciferol (Vitamin D2) 1.25 MG Cap PO SCH (08:45)
[2023-04-24] MEDS: Calcium Carbonate/Vitamin D3 1500 MG-400 Units Tab PO SCH (08:46)
[2023-04-24] MEDS: Enoxaparin 40 MG/0.4 ML Syringe SUBCUT SCH (08:46)
[2023-04-24] MEDS: Multivitamins with Iron/Calcium/Folic Acid/Minerals Tab PO SCH (08:47)
[2023-04-24] MEDS: Acetaminophen 325 MG Tab PO PRN (17:17)
[2023-04-24] MEDS: diphenhydrAMINE 25 MG Cap PO SCH (20:46)
[2023-04-24] MEDS: Haloperidol 5 MG Tab PO SCH (20:46)
[2023-04-24] MEDS: VERIFY SCOP PATCH SCH (20:57)
[2023-04-25] MEDS: Acetaminophen/HYDROcodone 325-5 MG Tab PO PRN ×2 (07:41→21:36)
[2023-04-25] MEDS: Amylase/Lipase/Protease 6,000 Unit Cap.CR PO SCH ×3 (08:03→21:33)
[2023-04-25] MEDS: LORazepam 1 MG Tab PO SCH ×2 (08:05→21:36)
[2023-04-25] MEDS: Pantoprazole 40 MG Tab.CR PO SCH (09:04)
[2023-04-25] MEDS: Topiramate 25 MG Tab PO SCH ×4 (09:04→21:34)
[2023-04-25] MEDS: Levothyroxine 88 MCG Tab PO SCH (09:05)
[2023-04-25] MEDS: DULoxetine 30 MG Cap PO SCH (09:05)
[2023-04-25] MEDS: Enoxaparin 40 MG/0.4 ML Syringe SUBCUT SCH (09:11)
[2023-04-25] MEDS: Folic Acid 1 MG Tab PO SCH (09:11)
[2023-04-25] MEDS: Calcium Carbonate/Vitamin D3 1500 MG-400 Units Tab PO SCH (09:11)
[2023-04-25] MEDS: Multivitamins with Iron/Calcium/Folic Acid/Minerals Tab PO SCH (09:12)
[2023-04-25] MEDS: Vitamin B6-pyridOXINE 50 MG Tab PO SCH (09:12)
[2023-04-25] MEDS: Ergocalciferol (Vitamin D2) 1.25 MG Cap PO SCH (09:12)
[2023-04-25] MEDS: Ascorbic Acid 500 MG Tab PO SCH (09:12)
[2023-04-25] MEDS: Magnesium Oxide 400 MG Tab PO SCH (09:12)
[2023-04-25] MEDS: Thiamine 100 MG Tab PO SCH ×2 (20:37→21:34)
[2023-04-25] MEDS: diphenhydrAMINE 25 MG Cap PO SCH (21:33)
[2023-04-25] MEDS: VERIFY SCOP PATCH SCH (21:33)
[2023-04-25] MEDS: Haloperidol 5 MG Tab PO SCH (21:34)
[2023-04-26] MEDS: LORazepam 1 MG Tab PO SCH ×2 (09:56→20:56)
[2023-04-26] MEDS: DULoxetine 30 MG Cap PO SCH (09:56)
[2023-04-26] MEDS: Topiramate 25 MG Tab PO SCH ×2 (09:56→20:57)
[2023-04-26] MEDS: Levothyroxine 88 MCG Tab PO SCH (09:56)
[2023-04-26] MEDS: Pantoprazole 40 MG Tab.CR PO SCH (10:01)
[2023-04-26] MEDS: Folic Acid 1 MG Tab PO SCH (10:01)
[2023-04-26] MEDS: Ergocalciferol (Vitamin D2) 1.25 MG Cap PO SCH (10:01)
[2023-04-26] MEDS: Amylase/Lipase/Protease 6,000 Unit Cap.CR PO SCH ×3 (10:01→19:19)
[2023-04-26] MEDS: Ascorbic Acid 500 MG Tab PO SCH (10:02)
[2023-04-26] MEDS: Vitamin B6-pyridOXINE 50 MG Tab PO SCH (10:04)
[2023-04-26] MEDS: Multivitamins with Iron/Calcium/Folic Acid/Minerals Tab PO SCH (10:04)
[2023-04-26] MEDS: Magnesium Oxide 400 MG Tab PO SCH (10:04)
[2023-04-26] MEDS: Enoxaparin 40 MG/0.4 ML Syringe SUBCUT SCH (10:07)
[2023-04-26] MEDS: VERIFY SCOP PATCH SCH (10:14)
[2023-04-26] MEDS: Calcium Carbonate/Vitamin D3 1500 MG-400 Units Tab PO SCH (11:04)
[2023-04-26] MEDS ORDERED: Lidocaine 4% 1 each Patch TOP SCH (15:30)
[2023-04-26] MEDS: Lidocaine 4% 1 each Patch TOP SCH (18:04)
[2023-04-26] MEDS: Haloperidol 5 MG Tab PO SCH (20:57)
[2023-04-26] MEDS: diphenhydrAMINE 25 MG Cap PO SCH (20:57)
[2023-04-26] MEDS: Thiamine 100 MG Tab PO SCH (20:57)
[2023-04-27] MEDS: Ergocalciferol (Vitamin D2) 1.25 MG Cap PO SCH (07:58)
[2023-04-27] MEDS: Pantoprazole 40 MG Tab.CR PO SCH (07:58)
[2023-04-27] MEDS: Levothyroxine 88 MCG Tab PO SCH (07:58)
[2023-04-27] MEDS: Vitamin B6-pyridOXINE 50 MG Tab PO SCH (07:59)
[2023-04-27] MEDS: Topiramate 25 MG Tab PO SCH ×2 (07:59→20:20)
[2023-04-27] MEDS: Multivitamins with Iron/Calcium/Folic Acid/Minerals Tab PO SCH (08:00)
[2023-04-27] MEDS: DULoxetine 30 MG Cap PO SCH (08:00)
[2023-04-27] MEDS: Ascorbic Acid 500 MG Tab PO SCH (08:00)
[2023-04-27] MEDS: Magnesium Oxide 400 MG Tab PO SCH (08:00)
[2023-04-27] MEDS: Amylase/Lipase/Protease 6,000 Unit Cap.CR PO SCH ×3 (08:00→17:00)
[2023-04-27] MEDS: Folic Acid 1 MG Tab PO SCH (08:00)
[2023-04-27] MEDS: Calcium Carbonate/Vitamin D3 1500 MG-400 Units Tab PO SCH (08:01)
[2023-04-27] MEDS: Enoxaparin 40 MG/0.4 ML Syringe SUBCUT SCH (08:02)
[2023-04-27] MEDS: LORazepam 1 MG Tab PO SCH ×2 (08:02→20:23)
[2023-04-27] MEDS: Acetaminophen/HYDROcodone 325-5 MG Tab PO PRN ×2 (08:08→20:23)
[2023-04-27] MEDS: VERIFY SCOP PATCH SCH (09:00)
[2023-04-27] MEDS: Lidocaine 4% 1 each Patch TOP SCH (17:00)
[2023-04-27] MEDS: diphenhydrAMINE 25 MG Cap PO SCH (20:20)
[2023-04-27] MEDS: Haloperidol 5 MG Tab PO SCH (20:20)
[2023-04-27] MEDS: Thiamine 100 MG Tab PO SCH (20:21)
[2023-04-28] MEDS: Calcium Carbonate/Vitamin D3 1500 MG-400 Units Tab PO SCH (09:59)
[2023-04-28] MEDS: LORazepam 1 MG Tab PO SCH ×2 (09:59→20:38)
[2023-04-28] MEDS: Amylase/Lipase/Protease 6,000 Unit Cap.CR PO SCH ×3 (10:00→16:59)
[2023-04-28] MEDS: DULoxetine 30 MG Cap PO SCH (10:01)
[2023-04-28] MEDS: Magnesium Oxide 400 MG Tab PO SCH (10:01)
[2023-04-28] MEDS: Folic Acid 1 MG Tab PO SCH (10:01)
[2023-04-28] MEDS: Pantoprazole 40 MG Tab.CR PO SCH (10:02)
[2023-04-28] MEDS: VERIFY SCOP PATCH SCH (10:02)
[2023-04-28] MEDS: Levothyroxine 88 MCG Tab PO SCH (10:03)
[2023-04-28] MEDS: Multivitamins with Iron/Calcium/Folic Acid/Minerals Tab PO SCH (10:04)
[2023-04-28] MEDS: Topiramate 25 MG Tab PO SCH ×2 (10:05→20:39)
[2023-04-28] MEDS: Vitamin B6-pyridOXINE 50 MG Tab PO SCH (10:06)
[2023-04-28] MEDS: Ascorbic Acid 500 MG Tab PO SCH (10:06)
[2023-04-28] MEDS: Ergocalciferol (Vitamin D2) 1.25 MG Cap PO SCH (10:07)
[2023-04-28] MEDS: Enoxaparin 40 MG/0.4 ML Syringe SUBCUT SCH (10:09)
[2023-04-28] MEDS: Acetaminophen/HYDROcodone 325-5 MG Tab PO PRN ×2 (10:11→20:42)
[2023-04-28 13:54] LABS: BASOPHILS ABSOLUTE AUTO 0.04 K/uL (0.00-0.10); BASOPHILS PERCENT AUTO 0.7 % (0.1-1.3); EOSINOPHILS ABSOLUTE AUTO 0.14 K/uL (0.00-0.40); EOSINOPHILS PERCENT AUTO 2.4 % (0.0-5.4); HEMOGLOBIN 11.1 g/dL (11.2-15.5); IMMATURE GRAN PERCENT AUTO 0.3 % (0.0-0.7); LYMPHOCYTES ABSOLUTE AUTO 1.14 K/uL (0.8-3.3); LYMPHOCYTES PERCENT AUTO 19.8 % (11.4-47.7); MEAN CORPUSCULAR HEMOGLOBIN 29.9 pg (31.6-35.5); MEAN CORPUSCULAR HGB CONC 31.7 g/dL (31.6-35.5); MEAN CORPUSCULAR VOLUME 94.3 fL (81.4-99.0); MONOCYTES ABSOLUTE AUTO 0.42 K/uL (0.20-0.90); MONOCYTES PERCENT AUTO 7.3 % (3.3-12.6); NEUTROPHILS PERCENT AUTO 69.5 % (40.0-78.1); PLATELET COUNT,PLT 230 K/uL (130-375); RED BLOOD CELL COUNT 3.71 M/uL (3.77-5.24); WHITE BLOOD CELL COUNT,WBC 5.8 K/uL (3.2-11.0)
[2023-04-28 13:56] LABS: IMMATURE GRAN ABSOLUTE AUTO 0.02 K/uL (0.00-0.23)
[2023-04-28] MEDS: Lidocaine 4% 1 each Patch TOP SCH (16:59)
[2023-04-28] MEDS: Haloperidol 5 MG Tab PO SCH (20:39)
[2023-04-28] MEDS: diphenhydrAMINE 25 MG Cap PO SCH (20:39)
[2023-04-28] MEDS: Thiamine 100 MG Tab PO SCH (20:39)
[2023-04-29] MEDS: Acetaminophen/HYDROcodone 325-5 MG Tab PO PRN ×3 (09:16→21:15)
[2023-04-29] MEDS: LORazepam 1 MG Tab PO SCH ×2 (09:17→21:15)
[2023-04-29] MEDS: Topiramate 25 MG Tab PO SCH ×2 (09:18→21:15)
[2023-04-29] MEDS: Pantoprazole 40 MG Tab.CR PO SCH (09:18)
[2023-04-29] MEDS: Ascorbic Acid 500 MG Tab PO SCH (09:18)
[2023-04-29] MEDS: Calcium Carbonate/Vitamin D3 1500 MG-400 Units Tab PO SCH (09:18)
[2023-04-29] MEDS: Ergocalciferol (Vitamin D2) 1.25 MG Cap PO SCH (09:18)
[2023-04-29] MEDS: Magnesium Oxide 400 MG Tab PO SCH (09:18)
[2023-04-29] MEDS: DULoxetine 30 MG Cap PO SCH (09:18)
[2023-04-29] MEDS: Amylase/Lipase/Protease 6,000 Unit Cap.CR PO SCH ×3 (09:18→16:33)
[2023-04-29] MEDS: Multivitamins with Iron/Calcium/Folic Acid/Minerals Tab PO SCH (09:18)
[2023-04-29] MEDS: Folic Acid 1 MG Tab PO SCH (09:18)
[2023-04-29] MEDS: Vitamin B6-pyridOXINE 50 MG Tab PO SCH (09:19)
[2023-04-29] MEDS: Levothyroxine 88 MCG Tab PO SCH (09:21)
[2023-04-29] MEDS: Scopalamine 1mg/3day Transdermal Patch TRDERM PRN (09:24)
[2023-04-29] MEDS: VERIFY SCOP PATCH SCH (09:26)
[2023-04-29] MEDS: Enoxaparin 40 MG/0.4 ML Syringe SUBCUT SCH (09:26)
[2023-04-29] MEDS: Lidocaine 4% 1 each Patch TOP SCH (16:34)
[2023-04-29] MEDS: Thiamine 100 MG Tab PO SCH (21:15)
[2023-04-29] MEDS: diphenhydrAMINE 25 MG Cap PO SCH (21:15)
[2023-04-29] MEDS: Haloperidol 5 MG Tab PO SCH (21:15)
[2023-04-30] MEDS: Amylase/Lipase/Protease 6,000 Unit Cap.CR PO SCH ×3 (09:00→18:31)
[2023-04-30] MEDS: Enoxaparin 40 MG/0.4 ML Syringe SUBCUT SCH (09:00)
[2023-04-30] MEDS: Pantoprazole 40 MG Tab.CR PO SCH (09:01)
[2023-04-30] MEDS: Ergocalciferol (Vitamin D2) 1.25 MG Cap PO SCH (09:01)
[2023-04-30] MEDS: Multivitamins with Iron/Calcium/Folic Acid/Minerals Tab PO SCH (09:01)
[2023-04-30] MEDS: Topiramate 25 MG Tab PO SCH ×2 (09:01→20:53)
[2023-04-30] MEDS: Ascorbic Acid 500 MG Tab PO SCH (09:01)
[2023-04-30] MEDS: Folic Acid 1 MG Tab PO SCH (09:01)
[2023-04-30] MEDS: Levothyroxine 88 MCG Tab PO SCH (09:02)
[2023-04-30] MEDS: DULoxetine 30 MG Cap PO SCH (09:02)
[2023-04-30] MEDS: Magnesium Oxide 400 MG Tab PO SCH (09:02)
[2023-04-30] MEDS: Vitamin B6-pyridOXINE 50 MG Tab PO SCH (09:02)
[2023-04-30] MEDS: Calcium Carbonate/Vitamin D3 1500 MG-400 Units Tab PO SCH (09:02)
[2023-04-30] MEDS: Acetaminophen/HYDROcodone 325-5 MG Tab PO PRN ×2 (09:39→20:53)
[2023-04-30] MEDS: VERIFY SCOP PATCH SCH (09:39)
[2023-04-30] MEDS: LORazepam 1 MG Tab PO SCH ×2 (09:39→20:53)
[2023-04-30] MEDS: Lidocaine 4% 1 each Patch TOP SCH (18:31)
[2023-04-30] MEDS: diphenhydrAMINE 25 MG Cap PO SCH (20:53)
[2023-04-30] MEDS: Haloperidol 5 MG Tab PO SCH (20:53)
[2023-04-30] MEDS: Thiamine 100 MG Tab PO SCH (20:53)
[2023-05-01] MEDS: Amylase/Lipase/Protease 6,000 Unit Cap.CR PO SCH ×3 (08:00→18:37)
[2023-05-01] MEDS: Levothyroxine 88 MCG Tab PO SCH (08:00)
[2023-05-01] MEDS: Pantoprazole 40 MG Tab.CR PO SCH (08:00)
[2023-05-01] MEDS: LORazepam 1 MG Tab PO SCH ×2 (10:26→21:34)
[2023-05-01] MEDS: Folic Acid 1 MG Tab PO SCH (10:27)
[2023-05-01] MEDS: Multivitamins with Iron/Calcium/Folic Acid/Minerals Tab PO SCH (10:28)
[2023-05-01] MEDS: Vitamin B6-pyridOXINE 50 MG Tab PO SCH (10:29)
[2023-05-01] MEDS: Calcium Carbonate/Vitamin D3 1500 MG-400 Units Tab PO SCH (10:29)
[2023-05-01] MEDS: Enoxaparin 40 MG/0.4 ML Syringe SUBCUT SCH (10:30)
[2023-05-01] MEDS: DULoxetine 30 MG Cap PO SCH (10:30)
[2023-05-01] MEDS: Magnesium Oxide 400 MG Tab PO SCH (10:31)
[2023-05-01] MEDS: Topiramate 25 MG Tab PO SCH ×2 (10:31→21:33)
[2023-05-01] MEDS: Ascorbic Acid 500 MG Tab PO SCH (10:32)
[2023-05-01] MEDS: Ergocalciferol (Vitamin D2) 1.25 MG Cap PO SCH (10:33)
[2023-05-01] MEDS: VERIFY SCOP PATCH SCH (10:34)
[2023-05-01] MEDS ORDERED: Cupric Chloride 2 MG in Sodium Chloride 0.9% 250 ML IV ONE (15:34)
[2023-05-01] MEDS: Thiamine 100 MG Tab PO SCH (21:33)
[2023-05-01] MEDS: diphenhydrAMINE 25 MG Cap PO SCH (21:33)
[2023-05-01] MEDS: Haloperidol 5 MG Tab PO SCH (21:33)
[2023-05-02] MEDS: Levothyroxine 88 MCG Tab PO SCH (07:25)
[2023-05-02] MEDS: Vitamin B6-pyridOXINE 50 MG Tab PO SCH (08:17)
[2023-05-02] MEDS: Ergocalciferol (Vitamin D2) 1.25 MG Cap PO SCH (08:17)
[2023-05-02] MEDS: Calcium Carbonate/Vitamin D3 1500 MG-400 Units Tab PO SCH (08:18)
[2023-05-02] MEDS: Folic Acid 1 MG Tab PO SCH (08:19)
[2023-05-02] MEDS: Ascorbic Acid 500 MG Tab PO SCH (08:19)
[2023-05-02] MEDS: Amylase/Lipase/Protease 6,000 Unit Cap.CR PO SCH ×3 (08:19→17:46)
[2023-05-02] MEDS: Multivitamins with Iron/Calcium/Folic Acid/Minerals Tab PO SCH (08:20)
[2023-05-02] MEDS: Magnesium Oxide 400 MG Tab PO SCH (08:21)
[2023-05-02] MEDS: DULoxetine 30 MG Cap PO SCH (08:21)
[2023-05-02] MEDS: Topiramate 25 MG Tab PO SCH ×2 (08:22→20:07)
[2023-05-02] MEDS: Pantoprazole 40 MG Tab.CR PO SCH (08:23)
[2023-05-02] MEDS: Enoxaparin 40 MG/0.4 ML Syringe SUBCUT SCH (08:24)
[2023-05-02] MEDS: LORazepam 1 MG Tab PO SCH ×2 (09:42→20:06)
[2023-05-02] MEDS: Lidocaine 4% 1 each Patch TOP SCH (09:42)
[2023-05-02] MEDS: VERIFY SCOP PATCH SCH (14:01)
[2023-05-02] MEDS: Vitamin A 100,000 Units/2 ML SDV IM SCH (17:46)
[2023-05-02] MEDS: Haloperidol 5 MG Tab PO SCH (20:06)
[2023-05-02] MEDS: Thiamine 100 MG Tab PO SCH (20:07)
[2023-05-02] MEDS: diphenhydrAMINE 25 MG Cap PO SCH (20:12)
[2023-05-03] MEDS: Acetaminophen/HYDROcodone 325-5 MG Tab PO PRN (05:18)
[2023-05-03] MEDS: Levothyroxine 88 MCG Tab PO SCH (09:17)
[2023-05-03] MEDS: Lidocaine 4% 1 each Patch TOP SCH (09:17)
[2023-05-03] MEDS: Amylase/Lipase/Protease 6,000 Unit Cap.CR PO SCH ×3 (09:17→18:13)
[2023-05-03] MEDS: LORazepam 1 MG Tab PO SCH ×2 (09:17→20:36)
[2023-05-03] MEDS: Ergocalciferol (Vitamin D2) 1.25 MG Cap PO SCH (09:18)
[2023-05-03] MEDS: Vitamin B6-pyridOXINE 50 MG Tab PO SCH (09:18)
[2023-05-03] MEDS: Folic Acid 1 MG Tab PO SCH (09:18)
[2023-05-03] MEDS: Magnesium Oxide 400 MG Tab PO SCH (09:18)
[2023-05-03] MEDS: Pantoprazole 40 MG Tab.CR PO SCH (09:19)
[2023-05-03] MEDS: Multivitamins with Iron/Calcium/Folic Acid/Minerals Tab PO SCH (09:19)
[2023-05-03] MEDS: Topiramate 25 MG Tab PO SCH ×2 (09:19→20:34)
[2023-05-03] MEDS: Calcium Carbonate/Vitamin D3 1500 MG-400 Units Tab PO SCH (09:19)
[2023-05-03] MEDS: DULoxetine 30 MG Cap PO SCH (09:19)
[2023-05-03] MEDS: Ascorbic Acid 500 MG Tab PO SCH (09:19)
[2023-05-03] MEDS: Enoxaparin 40 MG/0.4 ML Syringe SUBCUT SCH (09:20)
[2023-05-03] MEDS: VERIFY SCOP PATCH SCH (09:44)
[2023-05-03] MEDS ORDERED: Cupric Chloride 2 MG in Sodium Chloride 0.9% 250 ML IV ONE (10:00)
[2023-05-03] MEDS ORDERED: Sodium Chloride 0.9% 500 ML IV ONE (10:30)
[2023-05-03] MEDS: Scopalamine 1mg/3day Transdermal Patch TRDERM PRN (10:31)
[2023-05-03] MEDS: Acetaminophen 325 MG Tab PO PRN (20:34)
[2023-05-03] MEDS: Thiamine 100 MG Tab PO SCH (20:35)
[2023-05-03] MEDS: Haloperidol 5 MG Tab PO SCH (20:35)
[2023-05-03] MEDS: diphenhydrAMINE 25 MG Cap PO SCH (20:36)
[2023-05-04] MEDS: Acetaminophen 325 MG Tab PO PRN (05:56)
[2023-05-04] MEDS: LORazepam 1 MG Tab PO SCH ×2 (08:07→22:17)
[2023-05-04] MEDS: Ergocalciferol (Vitamin D2) 1.25 MG Cap PO SCH (08:07)
[2023-05-04] MEDS: Multivitamins with Iron/Calcium/Folic Acid/Minerals Tab PO SCH (08:07)
[2023-05-04] MEDS: Amylase/Lipase/Protease 6,000 Unit Cap.CR PO SCH ×3 (08:07→17:12)
[2023-05-04] MEDS: Enoxaparin 40 MG/0.4 ML Syringe SUBCUT SCH (08:07)
[2023-05-04] MEDS: DULoxetine 30 MG Cap PO SCH (08:07)
[2023-05-04] MEDS: Folic Acid 1 MG Tab PO SCH (08:07)
[2023-05-04] MEDS: Acetaminophen/HYDROcodone 325-5 MG Tab PO PRN ×2 (08:07→17:14)
[2023-05-04] MEDS: Pantoprazole 40 MG Tab.CR PO SCH (08:07)
[2023-05-04] MEDS: Lidocaine 4% 1 each Patch TOP SCH (08:08)
[2023-05-04] MEDS: Ascorbic Acid 500 MG Tab PO SCH (08:08)
[2023-05-04] MEDS: Magnesium Oxide 400 MG Tab PO SCH (08:08)
[2023-05-04] MEDS: Levothyroxine 88 MCG Tab PO SCH (08:08)
[2023-05-04] MEDS: Topiramate 25 MG Tab PO SCH (08:08)
[2023-05-04] MEDS: Vitamin B6-pyridOXINE 50 MG Tab PO SCH (08:08)
[2023-05-04] MEDS: Calcium Carbonate/Vitamin D3 1500 MG-400 Units Tab PO SCH (08:09)
[2023-05-04] MEDS: VERIFY SCOP PATCH SCH (08:09)
[2023-05-04] MEDS ORDERED: Sodium Chloride 0.9% 500 ML IV ONE (10:00)
[2023-05-04] MEDS ORDERED: Cupric Chloride 2 MG in Sodium Chloride 0.9% 250 ML IV ONE (10:00)
[2023-05-04] MEDS: diphenhydrAMINE 25 MG Cap PO SCH (22:17)
[2023-05-04] MEDS: Haloperidol 5 MG Tab PO SCH (22:17)
[2023-05-05] MEDS: Acetaminophen/HYDROcodone 325-5 MG Tab PO PRN ×2 (08:16→16:59)
[2023-05-05] MEDS: LORazepam 1 MG Tab PO SCH ×2 (08:16→20:36)
[2023-05-05] MEDS: Enoxaparin 40 MG/0.4 ML Syringe SUBCUT SCH (08:16)
[2023-05-05] MEDS: Lidocaine 4% 1 each Patch TOP SCH (08:17)
[2023-05-05] MEDS: Pantoprazole 40 MG Tab.CR PO SCH (08:17)
[2023-05-05] MEDS: Vitamin B6-pyridOXINE 50 MG Tab PO SCH (08:17)
[2023-05-05] MEDS: Levothyroxine 88 MCG Tab PO SCH (08:17)
[2023-05-05] MEDS: Ergocalciferol (Vitamin D2) 1.25 MG Cap PO SCH (08:17)
[2023-05-05] MEDS: Calcium Carbonate/Vitamin D3 1500 MG-400 Units Tab PO SCH (08:18)
[2023-05-05] MEDS: Amylase/Lipase/Protease 6,000 Unit Cap.CR PO SCH ×3 (08:18→16:59)
[2023-05-05] MEDS: DULoxetine 30 MG Cap PO SCH (08:18)
[2023-05-05] MEDS: Folic Acid 1 MG Tab PO SCH (08:18)
[2023-05-05] MEDS: Ascorbic Acid 500 MG Tab PO SCH (08:19)
[2023-05-05] MEDS: Topiramate 25 MG Tab PO SCH ×2 (08:20→20:38)
[2023-05-05] MEDS: Multivitamins with Iron/Calcium/Folic Acid/Minerals Tab PO SCH (08:20)
[2023-05-05] MEDS: VERIFY SCOP PATCH SCH (08:24)
[2023-05-05] MEDS: Magnesium Oxide 400 MG Tab PO SCH (08:24)
[2023-05-05] MEDS: diphenhydrAMINE 25 MG Cap PO SCH (20:36)
[2023-05-05] MEDS: Acetaminophen 325 MG Tab PO PRN (20:37)
[2023-05-05] MEDS: Haloperidol 5 MG Tab PO SCH (20:37)
[2023-05-05] MEDS: Thiamine 100 MG Tab PO SCH (20:37)
[2023-05-06] MEDS: LORazepam 1 MG Tab PO SCH ×2 (09:30→21:31)
[2023-05-06] MEDS: Calcium Carbonate/Vitamin D3 1500 MG-400 Units Tab PO SCH (09:30)
[2023-05-06] MEDS: Amylase/Lipase/Protease 6,000 Unit Cap.CR PO SCH ×2 (09:30→12:02)
[2023-05-06] MEDS: Folic Acid 1 MG Tab PO SCH (09:31)
[2023-05-06] MEDS: DULoxetine 30 MG Cap PO SCH (09:31)
[2023-05-06] MEDS: Pantoprazole 40 MG Tab.CR PO SCH (09:31)
[2023-05-06] MEDS: Magnesium Oxide 400 MG Tab PO SCH (09:31)
[2023-05-06] MEDS: Enoxaparin 40 MG/0.4 ML Syringe SUBCUT SCH (09:31)
[2023-05-06] MEDS: Topiramate 25 MG Tab PO SCH ×2 (09:32→21:30)
[2023-05-06] MEDS: Multivitamins with Iron/Calcium/Folic Acid/Minerals Tab PO SCH (09:32)
[2023-05-06] MEDS: Levothyroxine 88 MCG Tab PO SCH (09:32)
[2023-05-06] MEDS: Vitamin B6-pyridOXINE 50 MG Tab PO SCH (09:33)
[2023-05-06] MEDS: Ascorbic Acid 500 MG Tab PO SCH (09:33)
[2023-05-06] MEDS: Ergocalciferol (Vitamin D2) 1.25 MG Cap PO SCH (09:33)
[2023-05-06] MEDS: Lidocaine 4% 1 each Patch TOP SCH (09:37)
[2023-05-06] MEDS: VERIFY SCOP PATCH SCH (11:59)
[2023-05-06] MEDS: Acetaminophen/HYDROcodone 325-5 MG Tab PO PRN (12:02)
[2023-05-06] MEDS: Haloperidol 5 MG Tab PO SCH (21:30)
[2023-05-06] MEDS: diphenhydrAMINE 25 MG Cap PO SCH (21:31)
[2023-05-06] MEDS: Thiamine 100 MG Tab PO SCH ×2 (21:31→21:40)
[2023-05-07] MEDS: Pantoprazole 40 MG Tab.CR PO SCH (07:52)
[2023-05-07] MEDS: Acetaminophen/HYDROcodone 325-5 MG Tab PO PRN (07:52)
[2023-05-07] MEDS: Levothyroxine 88 MCG Tab PO SCH (07:52)
[2023-05-07] MEDS: VERIFY SCOP PATCH SCH (09:00)
[2023-05-07] MEDS: Magnesium Oxide 400 MG Tab PO SCH (09:46)
[2023-05-07] MEDS: DULoxetine 30 MG Cap PO SCH (09:46)
[2023-05-07] MEDS: Ascorbic Acid 500 MG Tab PO SCH (09:46)
[2023-05-07] MEDS: LORazepam 1 MG Tab PO SCH ×2 (09:46→20:41)
[2023-05-07] MEDS: Lidocaine 4% 1 each Patch TOP SCH (09:46)
[2023-05-07] MEDS: Amylase/Lipase/Protease 6,000 Unit Cap.CR PO SCH ×4 (09:47→20:01)
[2023-05-07] MEDS: Topiramate 25 MG Tab PO SCH ×2 (09:47→20:43)
[2023-05-07] MEDS: Vitamin B6-pyridOXINE 50 MG Tab PO SCH (09:47)
[2023-05-07] MEDS: Calcium Carbonate/Vitamin D3 1500 MG-400 Units Tab PO SCH (09:47)
[2023-05-07] MEDS: Folic Acid 1 MG Tab PO SCH (09:47)
[2023-05-07] MEDS: Multivitamins with Iron/Calcium/Folic Acid/Minerals Tab PO SCH (09:48)
[2023-05-07] MEDS: Ergocalciferol (Vitamin D2) 1.25 MG Cap PO SCH (09:48)
[2023-05-07] MEDS: Enoxaparin 40 MG/0.4 ML Syringe SUBCUT SCH (09:48)
[2023-05-07 13:32] LABS: BASOPHILS ABSOLUTE AUTO 0.02 K/uL (0.00-0.10); BASOPHILS PERCENT AUTO 0.4 % (0.1-1.3); EOSINOPHILS ABSOLUTE AUTO 0.14 K/uL (0.00-0.40); EOSINOPHILS PERCENT AUTO 2.7 % (0.0-5.4); HEMATOCRIT 31.1 % (34.3-46.0); HEMOGLOBIN 9.7 g/dL (11.2-15.5); IMMATURE GRAN ABSOLUTE AUTO 0.03 K/uL (0.00-0.23); IMMATURE GRAN PERCENT AUTO 0.6 % (0.0-0.7); LYMPHOCYTES ABSOLUTE AUTO 1.17 K/uL (0.8-3.3); LYMPHOCYTES PERCENT AUTO 22.8 % (11.4-47.7); MEAN CORPUSCULAR HEMOGLOBIN 29.9 pg (31.6-35.5); MEAN CORPUSCULAR HGB CONC 31.2 g/dL (31.6-35.5); MONOCYTES ABSOLUTE AUTO 0.42 K/uL (0.20-0.90); MONOCYTES PERCENT AUTO 8.2 % (3.3-12.6); NEUTROPHILS ABSOLUTE AUTO 3.35 K/uL (1.0-7.6); NEUTROPHILS PERCENT AUTO 65.3 % (40.0-78.1); PLATELET COUNT,PLT 234 K/uL (130-375); RED BLOOD CELL COUNT 3.24 M/uL (3.77-5.24); WHITE BLOOD CELL COUNT,WBC 5.1 K/uL (3.2-11.0)
[2023-05-07] MEDS: diphenhydrAMINE 25 MG Cap PO SCH (20:42)
[2023-05-07] MEDS: Haloperidol 5 MG Tab PO SCH (20:42)
[2023-05-07] MEDS: Scopalamine 1mg/3day Transdermal Patch TRDERM PRN (20:44)
[2023-05-07] MEDS: Thiamine 100 MG Tab PO SCH (20:46)
[2023-05-08] MEDS: LORazepam 1 MG Tab PO SCH ×2 (09:06→21:17)
[2023-05-08] MEDS: Enoxaparin 40 MG/0.4 ML Syringe SUBCUT SCH (09:07)
[2023-05-08] MEDS: Amylase/Lipase/Protease 6,000 Unit Cap.CR PO SCH ×3 (09:07→16:25)
[2023-05-08] MEDS: Calcium Carbonate/Vitamin D3 1500 MG-400 Units Tab PO SCH (09:07)
[2023-05-08] MEDS: Folic Acid 1 MG Tab PO SCH (09:07)
[2023-05-08] MEDS: Magnesium Oxide 400 MG Tab PO SCH (09:07)
[2023-05-08] MEDS: DULoxetine 30 MG Cap PO SCH (09:07)
[2023-05-08] MEDS: Pantoprazole 40 MG Tab.CR PO SCH (09:08)
[2023-05-08] MEDS: VERIFY SCOP PATCH SCH (09:08)
[2023-05-08] MEDS: Ascorbic Acid 500 MG Tab PO SCH (09:09)
[2023-05-08] MEDS: Topiramate 25 MG Tab PO SCH ×2 (09:09→21:16)
[2023-05-08] MEDS: Levothyroxine 88 MCG Tab PO SCH (09:09)
[2023-05-08] MEDS: Vitamin B6-pyridOXINE 50 MG Tab PO SCH (09:09)
[2023-05-08] MEDS: Multivitamins with Iron/Calcium/Folic Acid/Minerals Tab PO SCH (09:09)
[2023-05-08] MEDS: Ergocalciferol (Vitamin D2) 1.25 MG Cap PO SCH (09:10)
[2023-05-08] MEDS: Lidocaine 4% 1 each Patch TOP SCH (09:11)
[2023-05-08] MEDS: Acetaminophen/HYDROcodone 325-5 MG Tab PO PRN (16:28)
[2023-05-08] MEDS: diphenhydrAMINE 25 MG Cap PO SCH (21:16)
[2023-05-08] MEDS: Haloperidol 5 MG Tab PO SCH (21:17)
[2023-05-08] MEDS: Thiamine 100 MG Tab PO SCH (21:18)
[2023-05-09 05:49] LABS: BASOPHILS ABSOLUTE AUTO 0.04 K/uL (0.00-0.10); BASOPHILS PERCENT AUTO 0.9 % (0.1-1.3); EOSINOPHILS ABSOLUTE AUTO 0.17 K/uL (0.00-0.40); EOSINOPHILS PERCENT AUTO 3.9 % (0.0-5.4); HEMATOCRIT 31.4 % (34.3-46.0); HEMOGLOBIN 9.7 g/dL (11.2-15.5); IMMATURE GRAN ABSOLUTE AUTO 0.03 K/uL (0.00-0.23); IMMATURE GRAN PERCENT AUTO 0.7 % (0.0-0.7); LYMPHOCYTES ABSOLUTE AUTO 1.73 K/uL (0.8-3.3); MEAN CORPUSCULAR HEMOGLOBIN 29.8 pg (31.6-35.5); MEAN CORPUSCULAR HGB CONC 30.9 g/dL (31.6-35.5); MEAN CORPUSCULAR VOLUME 96.6 fL (81.4-99.0); MONOCYTES ABSOLUTE AUTO 0.42 K/uL (0.20-0.90); MONOCYTES PERCENT AUTO 9.7 % (3.3-12.6); NEUTROPHILS ABSOLUTE AUTO 1.94 K/uL (1.0-7.6); NEUTROPHILS PERCENT AUTO 44.8 % (40.0-78.1); PLATELET COUNT,PLT 219 K/uL (130-375); RED BLOOD CELL COUNT 3.25 M/uL (3.77-5.24); WHITE BLOOD CELL COUNT,WBC 4.3 K/uL (3.2-11.0)
[2023-05-09 06:19] LABS: IRON,FE 51 ug/dL (50-170); PERCENT FE SATURATION 23 % (20-55); TOTAL IRON BINDING CAPACITY 222 ug/dl (250-450)
[2023-05-09 06:43] LABS: ALANINE AMINOTRANSFERASE,ALT 25 U/L (12-78); ALBUMIN 2.7 g/dL (3.4-5.0); ALKALINE PHOSPHATASE 56 U/L (46-116); ASPARTATE AMNIOTRANSFERASE,AST 19 U/L (15-37); BILIRUBIN TOTAL 0.7 mg/dL (0.2-1.0); BLOOD UREA NITROGEN,BUN 20 mg/dL (7-18); CALCIUM 7.8 mg/dL (8.5-10.1); CARBON DIOXIDE,CO2 24 mmol/L (21-32); CHLORIDE,CL 109 mmol/L (100-108); CREATININE 0.9 mg/dL (0.6-1.0); EST CRCL DRUG DOSING (CG) 64.64 mL/min; ESTIMATED GFR 73 mL/min (>60); FERRITIN 110 ng/ml (8-388); FOLIC ACID 17.7 ng/ml (8.6-58.9); GLUCOSE RANDOM 70 mg/dL (74-106); POTASSIUM,K 3.8 mmol/L (3.6-5.2); PROTEIN TOTAL,TP 5.3 g/dL (6.4-8.2); SODIUM,NA 142 mmol/L (140-148)
[2023-05-09 06:49] LABS: ANION GAP 12.8 mmol/L (5.0-14.0)
[2023-05-09] MEDS: Lidocaine 4% 1 each Patch TOP SCH (08:51)
[2023-05-09] MEDS: Calcium Carbonate/Vitamin D3 1500 MG-400 Units Tab PO SCH (08:52)
[2023-05-09] MEDS: LORazepam 1 MG Tab PO SCH ×2 (08:52→20:30)
[2023-05-09] MEDS: Amylase/Lipase/Protease 6,000 Unit Cap.CR PO SCH ×3 (08:53→16:58)
[2023-05-09] MEDS: DULoxetine 30 MG Cap PO SCH (08:53)
[2023-05-09] MEDS: Magnesium Oxide 400 MG Tab PO SCH (08:54)
[2023-05-09] MEDS: Folic Acid 1 MG Tab PO SCH (08:55)
[2023-05-09] MEDS: Pantoprazole 40 MG Tab.CR PO SCH (08:55)
[2023-05-09] MEDS: Levothyroxine 88 MCG Tab PO SCH (08:56)
[2023-05-09] MEDS: Multivitamins with Iron/Calcium/Folic Acid/Minerals Tab PO SCH (08:56)
[2023-05-09] MEDS: Topiramate 25 MG Tab PO SCH ×2 (08:57→20:30)
[2023-05-09] MEDS: Vitamin B6-pyridOXINE 50 MG Tab PO SCH (08:57)
[2023-05-09] MEDS: Ergocalciferol (Vitamin D2) 1.25 MG Cap PO SCH (08:57)
[2023-05-09] MEDS: Ascorbic Acid 500 MG Tab PO SCH (08:57)
[2023-05-09] MEDS: Acetaminophen 325 MG Tab PO PRN (08:59)
[2023-05-09] MEDS: Acetaminophen/HYDROcodone 325-5 MG Tab PO PRN (19:47)
[2023-05-09] MEDS: diphenhydrAMINE 25 MG Cap PO SCH (20:30)
[2023-05-09] MEDS: Haloperidol 5 MG Tab PO SCH (20:30)
[2023-05-09] MEDS: Thiamine 100 MG Tab PO SCH (20:30)
[2023-05-09] MEDS: VERIFY SCOP PATCH SCH (20:32)
[2023-05-10] MEDS: Levothyroxine 88 MCG Tab PO SCH (07:58)
[2023-05-10] MEDS: Lidocaine 4% 1 each Patch TOP SCH (07:58)
[2023-05-10] MEDS: LORazepam 1 MG Tab PO SCH ×2 (07:59→20:08)
[2023-05-10] MEDS: Amylase/Lipase/Protease 6,000 Unit Cap.CR PO SCH ×3 (07:59→18:11)
[2023-05-10] MEDS: Calcium Carbonate/Vitamin D3 1500 MG-400 Units Tab PO SCH (07:59)
[2023-05-10] MEDS: DULoxetine 30 MG Cap PO SCH (08:00)
[2023-05-10] MEDS: Folic Acid 1 MG Tab PO SCH (08:00)
[2023-05-10] MEDS: Magnesium Oxide 400 MG Tab PO SCH (08:01)
[2023-05-10] MEDS: VERIFY SCOP PATCH SCH (08:02)
[2023-05-10] MEDS: Pantoprazole 40 MG Tab.CR PO SCH (08:02)
[2023-05-10] MEDS: Ascorbic Acid 500 MG Tab PO SCH (08:03)
[2023-05-10] MEDS: Topiramate 25 MG Tab PO SCH ×2 (08:03→20:08)
[2023-05-10] MEDS: Vitamin B6-pyridOXINE 50 MG Tab PO SCH (08:03)
[2023-05-10] MEDS: Multivitamins with Iron/Calcium/Folic Acid/Minerals Tab PO SCH (08:03)
[2023-05-10] MEDS: Ergocalciferol (Vitamin D2) 1.25 MG Cap PO SCH (08:03)
[2023-05-10] MEDS: Acetaminophen 325 MG Tab PO PRN (08:13)
[2023-05-10] MEDS: Acetaminophen/HYDROcodone 325-5 MG Tab PO PRN ×2 (11:36→20:08)
[2023-05-10] MEDS: diphenhydrAMINE 25 MG Cap PO SCH (20:08)
[2023-05-10] MEDS: Thiamine 100 MG Tab PO SCH (20:08)
[2023-05-10] MEDS: Haloperidol 5 MG Tab PO SCH (20:08)
[2023-05-11] MEDS: Levothyroxine 88 MCG Tab PO SCH (07:26)
[2023-05-11] MEDS: Lidocaine 4% 1 each Patch TOP SCH (08:05)
[2023-05-11] MEDS: Topiramate 25 MG Tab PO SCH ×2 (08:06→21:48)
[2023-05-11] MEDS: Pantoprazole 40 MG Tab.CR PO SCH (08:06)
[2023-05-11] MEDS: DULoxetine 30 MG Cap PO SCH (08:06)
[2023-05-11] MEDS: Folic Acid 1 MG Tab PO SCH (08:06)
[2023-05-11] MEDS: Ergocalciferol (Vitamin D2) 1.25 MG Cap PO SCH (08:06)
[2023-05-11] MEDS: Magnesium Oxide 400 MG Tab PO SCH (08:06)
[2023-05-11] MEDS: Amylase/Lipase/Protease 6,000 Unit Cap.CR PO SCH ×3 (08:07→18:04)
[2023-05-11] MEDS: Multivitamins with Iron/Calcium/Folic Acid/Minerals Tab PO SCH (08:07)
[2023-05-11] MEDS: Vitamin B6-pyridOXINE 50 MG Tab PO SCH (08:08)
[2023-05-11] MEDS: Ascorbic Acid 500 MG Tab PO SCH (08:08)
[2023-05-11] MEDS: Calcium Carbonate/Vitamin D3 1500 MG-400 Units Tab PO SCH (08:11)
[2023-05-11] MEDS: VERIFY SCOP PATCH SCH (08:12)
[2023-05-11] MEDS: LORazepam 1 MG Tab PO SCH ×2 (08:14→21:46)
[2023-05-11] MEDS: Acetaminophen/HYDROcodone 325-5 MG Tab PO PRN (21:46)
[2023-05-11] MEDS: diphenhydrAMINE 25 MG Cap PO SCH (21:47)
[2023-05-11] MEDS: Haloperidol 5 MG Tab PO SCH (21:47)
[2023-05-11] MEDS: Thiamine 100 MG Tab PO SCH (21:50)
[2023-05-12] MEDS: LORazepam 1 MG Tab PO SCH ×2 (08:05→22:27)
[2023-05-12] MEDS: Pantoprazole 40 MG Tab.CR PO SCH (08:30)
[2023-05-12] MEDS: Levothyroxine 88 MCG Tab PO SCH (08:30)
[2023-05-12] MEDS: Amylase/Lipase/Protease 6,000 Unit Cap.CR PO SCH ×3 (08:31→17:18)
[2023-05-12] MEDS: Ascorbic Acid 500 MG Tab PO SCH (08:31)
[2023-05-12] MEDS: Vitamin B6-pyridOXINE 50 MG Tab PO SCH (08:32)
[2023-05-12] MEDS: Topiramate 25 MG Tab PO SCH ×2 (08:32→20:24)
[2023-05-12] MEDS: Magnesium Oxide 400 MG Tab PO SCH (08:33)
[2023-05-12] MEDS: Multivitamins with Iron/Calcium/Folic Acid/Minerals Tab PO SCH (08:34)
[2023-05-12] MEDS: Calcium Carbonate/Vitamin D3 1500 MG-400 Units Tab PO SCH (08:34)
[2023-05-12] MEDS: DULoxetine 30 MG Cap PO SCH (08:34)
[2023-05-12] MEDS: Lidocaine 4% 1 each Patch TOP SCH (08:35)
[2023-05-12] MEDS: Folic Acid 1 MG Tab PO SCH (08:35)
[2023-05-12] MEDS: Scopalamine 1mg/3day Transdermal Patch TRDERM PRN (08:50)
[2023-05-12] MEDS: Acetaminophen/HYDROcodone 325-5 MG Tab PO PRN (08:51)
[2023-05-12] MEDS: VERIFY SCOP PATCH SCH (11:52)
[2023-05-12] MEDS: Ergocalciferol (Vitamin D2) 1.25 MG Cap PO SCH (11:56)
[2023-05-12] MEDS: Haloperidol 5 MG Tab PO SCH (20:22)
[2023-05-12] MEDS: diphenhydrAMINE 25 MG Cap PO SCH (20:23)
[2023-05-12] MEDS: Thiamine 100 MG Tab PO SCH (20:24)
[2023-05-13] MEDS: Acetaminophen 325 MG Tab PO PRN (08:06)
[2023-05-13] MEDS: Lidocaine 4% 1 each Patch TOP SCH (08:07)
[2023-05-13] MEDS: LORazepam 1 MG Tab PO SCH ×2 (08:09→20:42)
[2023-05-13] MEDS: Vitamin B6-pyridOXINE 50 MG Tab PO SCH (08:10)
[2023-05-13] MEDS: Multivitamins with Iron/Calcium/Folic Acid/Minerals Tab PO SCH (08:12)
[2023-05-13] MEDS: DULoxetine 30 MG Cap PO SCH (08:13)
[2023-05-13] MEDS: Topiramate 25 MG Tab PO SCH ×2 (08:13→20:41)
[2023-05-13] MEDS: Ergocalciferol (Vitamin D2) 1.25 MG Cap PO SCH (08:13)
[2023-05-13] MEDS: Ascorbic Acid 500 MG Tab PO SCH (08:14)
[2023-05-13] MEDS: Levothyroxine 88 MCG Tab PO SCH (08:14)
[2023-05-13] MEDS: Folic Acid 1 MG Tab PO SCH (08:15)
[2023-05-13] MEDS: Amylase/Lipase/Protease 6,000 Unit Cap.CR PO SCH ×3 (08:15→17:27)
[2023-05-13] MEDS: Pantoprazole 40 MG Tab.CR PO SCH (08:16)
[2023-05-13] MEDS: Magnesium Oxide 400 MG Tab PO SCH (08:16)
[2023-05-13] MEDS: Calcium Carbonate/Vitamin D3 1500 MG-400 Units Tab PO SCH (08:21)
[2023-05-13] MEDS: Acetaminophen/HYDROcodone 325-5 MG Tab PO PRN (12:30)
[2023-05-13 15:07] LABS: CORONAVIRUS COVID-19 NAA NEGATIVE (NEGATIVE); INFLUENZA A NAA NEGATIVE (NEGATIVE); INFLUENZA B NAA NEGATIVE (NEGATIVE); RESPIRATORY SYNCYTIAL VIR NAA NEGATIVE (NEGATIVE)
[2023-05-13] MEDS: diphenhydrAMINE 25 MG Cap PO SCH (20:40)
[2023-05-13] MEDS: Thiamine 100 MG Tab PO SCH (20:40)
[2023-05-13] MEDS: Haloperidol 5 MG Tab PO SCH (20:41)
[2023-05-13] MEDS: VERIFY SCOP PATCH SCH (20:43)
[2023-05-14] MEDS: Calcium Carbonate/Vitamin D3 1500 MG-400 Units Tab PO SCH (08:17)
[2023-05-14] MEDS: DULoxetine 30 MG Cap PO SCH (08:18)
[2023-05-14] MEDS: Folic Acid 1 MG Tab PO SCH (08:18)
[2023-05-14] MEDS: Amylase/Lipase/Protease 6,000 Unit Cap.CR PO SCH ×3 (08:18→18:33)
[2023-05-14] MEDS: Magnesium Oxide 400 MG Tab PO SCH (08:18)
[2023-05-14] MEDS: Pantoprazole 40 MG Tab.CR PO SCH (08:19)
[2023-05-14] MEDS: Levothyroxine 88 MCG Tab PO SCH (08:19)
[2023-05-14] MEDS: Multivitamins with Iron/Calcium/Folic Acid/Minerals Tab PO SCH (08:19)
[2023-05-14] MEDS: Topiramate 25 MG Tab PO SCH ×2 (08:20→20:22)
[2023-05-14] MEDS: Ergocalciferol (Vitamin D2) 1.25 MG Cap PO SCH (08:20)
[2023-05-14] MEDS: Ascorbic Acid 500 MG Tab PO SCH (08:20)
[2023-05-14] MEDS: Vitamin B6-pyridOXINE 50 MG Tab PO SCH (08:20)
[2023-05-14] MEDS: Lidocaine 4% 1 each Patch TOP SCH (08:21)
[2023-05-14] MEDS: VERIFY SCOP PATCH SCH ×2 (08:22→16:48)
[2023-05-14] MEDS: LORazepam 1 MG Tab PO SCH ×2 (08:33→20:21)
[2023-05-14] MEDS: diphenhydrAMINE 25 MG Cap PO SCH (20:21)
[2023-05-14] MEDS: Haloperidol 5 MG Tab PO SCH (20:22)
[2023-05-14] MEDS: Thiamine 100 MG Tab PO SCH (20:22)
[2023-05-15] MEDS: LORazepam 1 MG Tab PO SCH ×2 (08:15→20:56)
[2023-05-15] MEDS: Lidocaine 4% 1 each Patch TOP SCH (08:15)
[2023-05-15] MEDS: Amylase/Lipase/Protease 6,000 Unit Cap.CR PO SCH ×3 (08:16→18:05)
[2023-05-15] MEDS: DULoxetine 30 MG Cap PO SCH (08:16)
[2023-05-15] MEDS: Calcium Carbonate/Vitamin D3 1500 MG-400 Units Tab PO SCH (08:16)
[2023-05-15] MEDS: Folic Acid 1 MG Tab PO SCH (08:17)
[2023-05-15] MEDS: Magnesium Oxide 400 MG Tab PO SCH (08:18)
[2023-05-15] MEDS: Pantoprazole 40 MG Tab.CR PO SCH (08:18)
[2023-05-15] MEDS: VERIFY SCOP PATCH SCH (08:19)
[2023-05-15] MEDS: Levothyroxine 88 MCG Tab PO SCH (08:20)
[2023-05-15] MEDS: Topiramate 25 MG Tab PO SCH ×2 (08:20→20:56)
[2023-05-15] MEDS: Multivitamins with Iron/Calcium/Folic Acid/Minerals Tab PO SCH (08:21)
[2023-05-15] MEDS: Ergocalciferol (Vitamin D2) 1.25 MG Cap PO SCH (08:22)
[2023-05-15] MEDS: Ascorbic Acid 500 MG Tab PO SCH (08:22)
[2023-05-15] MEDS: Vitamin B6-pyridOXINE 50 MG Tab PO SCH (08:22)
[2023-05-15] MEDS: Thiamine 100 MG Tab PO SCH (20:56)
[2023-05-15] MEDS: Haloperidol 5 MG Tab PO SCH (20:57)
[2023-05-15] MEDS: Acetaminophen/HYDROcodone 325-5 MG Tab PO PRN (20:57)
[2023-05-15] MEDS: diphenhydrAMINE 25 MG Cap PO SCH (20:57)
[2023-05-16 07:45] LABS: BASOPHILS ABSOLUTE AUTO 0.04 K/uL (0.00-0.10); BASOPHILS PERCENT AUTO 0.8 % (0.1-1.3); EOSINOPHILS ABSOLUTE AUTO 0.17 K/uL (0.00-0.40); EOSINOPHILS PERCENT AUTO 3.5 % (0.0-5.4); HEMOGLOBIN 10.5 g/dL (11.2-15.5); IMMATURE GRAN ABSOLUTE AUTO 0.05 K/uL (0.00-0.23); LYMPHOCYTES ABSOLUTE AUTO 1.73 K/uL (0.8-3.3); MEAN CORPUSCULAR HEMOGLOBIN 30.7 pg (31.6-35.5); MEAN CORPUSCULAR HGB CONC 31.8 g/dL (31.6-35.5); MEAN CORPUSCULAR VOLUME 96.5 fL (81.4-99.0); MONOCYTES ABSOLUTE AUTO 0.43 K/uL (0.20-0.90); NEUTROPHILS ABSOLUTE AUTO 2.38 K/uL (1.0-7.6); NEUTROPHILS PERCENT AUTO 49.7 % (40.0-78.1); PLATELET COUNT,PLT 222 K/uL (130-375); RED BLOOD CELL COUNT 3.42 M/uL (3.77-5.24); WHITE BLOOD CELL COUNT,WBC 4.8 K/uL (3.2-11.0)
[2023-05-16 08:04] LABS: A/G RATIO 1.1 (1.2-2.2); ALANINE AMINOTRANSFERASE,ALT 27 U/L (12-78); ALKALINE PHOSPHATASE 58 U/L (46-116); ASPARTATE AMNIOTRANSFERASE,AST 21 U/L (15-37); BILIRUBIN TOTAL 0.9 mg/dL (0.2-1.0); BLOOD UREA NITROGEN,BUN 25 mg/dL (7-18); CALCIUM 8.1 mg/dL (8.5-10.1); CARBON DIOXIDE,CO2 23 mmol/L (21-32); CHLORIDE,CL 110 mmol/L (100-108); CREATININE 0.8 mg/dL (0.6-1.0); EST CRCL DRUG DOSING (CG) 72.72 mL/min; ESTIMATED GFR 84 mL/min (>60); GLUCOSE RANDOM 86 mg/dL (74-106); POTASSIUM,K 4.1 mmol/L (3.6-5.2); PROTEIN TOTAL,TP 5.7 g/dL (6.4-8.2); SODIUM,NA 142 mmol/L (140-148)
[2023-05-16 08:11] LABS: ANION GAP 13.1 mmol/L (5.0-14.0)
[2023-05-16] MEDS: Multivitamins with Iron/Calcium/Folic Acid/Minerals Tab PO SCH (08:56)
[2023-05-16] MEDS: Vitamin B6-pyridOXINE 50 MG Tab PO SCH (08:57)
[2023-05-16] MEDS: Topiramate 25 MG Tab PO SCH ×2 (08:58→21:12)
[2023-05-16] MEDS: DULoxetine 30 MG Cap PO SCH (08:58)
[2023-05-16] MEDS: Magnesium Oxide 400 MG Tab PO SCH (08:58)
[2023-05-16] MEDS: Folic Acid 1 MG Tab PO SCH (08:59)
[2023-05-16] MEDS: Calcium Carbonate/Vitamin D3 1500 MG-400 Units Tab PO SCH (08:59)
[2023-05-16] MEDS: Pantoprazole 40 MG Tab.CR PO SCH (09:00)
[2023-05-16] MEDS: Amylase/Lipase/Protease 6,000 Unit Cap.CR PO SCH ×3 (09:00→17:06)
[2023-05-16] MEDS: Ascorbic Acid 500 MG Tab PO SCH (09:00)
[2023-05-16] MEDS: Lidocaine 4% 1 each Patch TOP SCH (09:01)
[2023-05-16] MEDS: Ergocalciferol (Vitamin D2) 1.25 MG Cap PO SCH (09:01)
[2023-05-16] MEDS: Levothyroxine 88 MCG Tab PO SCH (09:01)
[2023-05-16] MEDS: LORazepam 1 MG Tab PO SCH ×2 (09:06→21:11)
[2023-05-16] MEDS: Scopalamine 1mg/3day Transdermal Patch TRDERM PRN (09:19)
[2023-05-16] MEDS: VERIFY SCOP PATCH SCH (09:22)
[2023-05-16] MEDS: Vitamin A 100,000 Units/2 ML SDV IM SCH (10:44)
[2023-05-16] MEDS: Acetaminophen/HYDROcodone 325-5 MG Tab PO PRN (10:46)
[2023-05-16] MEDS: diphenhydrAMINE 25 MG Cap PO SCH (21:11)
[2023-05-16] MEDS: Haloperidol 5 MG Tab PO SCH (21:12)
[2023-05-16] MEDS: Thiamine 100 MG Tab PO SCH (21:13)
[2023-05-17] MEDS: Amylase/Lipase/Protease 6,000 Unit Cap.CR PO SCH ×3 (08:02→17:02)
[2023-05-17] MEDS: LORazepam 1 MG Tab PO SCH ×2 (08:02→20:07)
[2023-05-17] MEDS: Levothyroxine 88 MCG Tab PO SCH (08:02)
[2023-05-17] MEDS: Pantoprazole 40 MG Tab.CR PO SCH (08:02)
[2023-05-17] MEDS: Magnesium Oxide 400 MG Tab PO SCH (08:03)
[2023-05-17] MEDS: Folic Acid 1 MG Tab PO SCH (08:03)
[2023-05-17] MEDS: Multivitamins with Iron/Calcium/Folic Acid/Minerals Tab PO SCH (08:03)
[2023-05-17] MEDS: DULoxetine 30 MG Cap PO SCH (08:03)
[2023-05-17] MEDS: Calcium Carbonate/Vitamin D3 1500 MG-400 Units Tab PO SCH (08:03)
[2023-05-17] MEDS: Ascorbic Acid 500 MG Tab PO SCH (08:04)
[2023-05-17] MEDS: Topiramate 25 MG Tab PO SCH ×2 (08:04→20:07)
[2023-05-17] MEDS: Ergocalciferol (Vitamin D2) 1.25 MG Cap PO SCH (08:04)
[2023-05-17] MEDS: Vitamin B6-pyridOXINE 50 MG Tab PO SCH (08:04)
[2023-05-17] MEDS: Lidocaine 4% 1 each Patch TOP SCH (09:43)
[2023-05-17] MEDS: VERIFY SCOP PATCH SCH (09:44)
[2023-05-17] MEDS: Acetaminophen/HYDROcodone 325-5 MG Tab PO PRN ×2 (15:00→19:32)
[2023-05-17] MEDS: Haloperidol 5 MG Tab PO SCH (20:07)
[2023-05-17] MEDS: diphenhydrAMINE 25 MG Cap PO SCH (20:07)
[2023-05-17] MEDS: Thiamine 100 MG Tab PO SCH (20:07)
[2023-05-18] MEDS: Ascorbic Acid 500 MG Tab PO SCH (08:04)
[2023-05-18] MEDS: Ergocalciferol (Vitamin D2) 1.25 MG Cap PO SCH (08:04)
[2023-05-18] MEDS: DULoxetine 30 MG Cap PO SCH (08:04)
[2023-05-18] MEDS: Vitamin B6-pyridOXINE 50 MG Tab PO SCH (08:04)
[2023-05-18] MEDS: Magnesium Oxide 400 MG Tab PO SCH (08:04)
[2023-05-18] MEDS: Multivitamins with Iron/Calcium/Folic Acid/Minerals Tab PO SCH (08:04)
[2023-05-18] MEDS: Pantoprazole 40 MG Tab.CR PO SCH (08:04)
[2023-05-18] MEDS: LORazepam 1 MG Tab PO SCH ×2 (08:04→20:55)
[2023-05-18] MEDS: Amylase/Lipase/Protease 6,000 Unit Cap.CR PO SCH ×3 (08:04→16:54)
[2023-05-18] MEDS: Levothyroxine 88 MCG Tab PO SCH (08:04)
[2023-05-18] MEDS: Folic Acid 1 MG Tab PO SCH (08:04)
[2023-05-18] MEDS: Calcium Carbonate/Vitamin D3 1500 MG-400 Units Tab PO SCH (08:04)
[2023-05-18] MEDS: Topiramate 25 MG Tab PO SCH ×2 (08:05→20:55)
[2023-05-18] MEDS: Lidocaine 4% 1 each Patch TOP SCH (08:05)
[2023-05-18] MEDS: VERIFY SCOP PATCH SCH (08:05)
[2023-05-18] MEDS: Acetaminophen/HYDROcodone 325-5 MG Tab PO PRN ×2 (14:26→22:09)
[2023-05-18] MEDS: diphenhydrAMINE 25 MG Cap PO SCH (20:55)
[2023-05-18] MEDS: Haloperidol 5 MG Tab PO SCH (20:56)
[2023-05-18] MEDS: Thiamine 100 MG Tab PO SCH (21:00)
[2023-05-19] MEDS: Amylase/Lipase/Protease 6,000 Unit Cap.CR PO SCH ×3 (08:02→16:56)
[2023-05-19] MEDS: LORazepam 1 MG Tab PO SCH ×2 (08:02→20:44)
[2023-05-19] MEDS: DULoxetine 30 MG Cap PO SCH (08:02)
[2023-05-19] MEDS: Pantoprazole 40 MG Tab.CR PO SCH (08:02)
[2023-05-19] MEDS: Folic Acid 1 MG Tab PO SCH (08:02)
[2023-05-19] MEDS: Calcium Carbonate/Vitamin D3 1500 MG-400 Units Tab PO SCH (08:02)
[2023-05-19] MEDS: Levothyroxine 88 MCG Tab PO SCH (08:03)
[2023-05-19] MEDS: Topiramate 25 MG Tab PO SCH ×2 (08:03→20:42)
[2023-05-19] MEDS: Vitamin B6-pyridOXINE 50 MG Tab PO SCH (08:03)
[2023-05-19] MEDS: Ergocalciferol (Vitamin D2) 1.25 MG Cap PO SCH (08:03)
[2023-05-19] MEDS: Magnesium Oxide 400 MG Tab PO SCH (08:03)
[2023-05-19] MEDS: Ascorbic Acid 500 MG Tab PO SCH (08:03)
[2023-05-19] MEDS: Multivitamins with Iron/Calcium/Folic Acid/Minerals Tab PO SCH (08:03)
[2023-05-19] MEDS: Lidocaine 4% 1 each Patch TOP SCH (08:04)
[2023-05-19] MEDS: VERIFY SCOP PATCH SCH (09:00)
[2023-05-19] MEDS: Haloperidol 5 MG Tab PO SCH (20:43)
[2023-05-19] MEDS: diphenhydrAMINE 25 MG Cap PO SCH (20:43)
[2023-05-19] MEDS: Thiamine 100 MG Tab PO SCH (20:43)
[2023-05-19] MEDS: Acetaminophen/HYDROcodone 325-5 MG Tab PO PRN (21:00)
[2023-05-20] MEDS: Magnesium Oxide 400 MG Tab PO SCH (08:05)
[2023-05-20] MEDS: Amylase/Lipase/Protease 6,000 Unit Cap.CR PO SCH ×3 (08:05→16:37)
[2023-05-20] MEDS: Ascorbic Acid 500 MG Tab PO SCH (08:05)
[2023-05-20] MEDS: Ergocalciferol (Vitamin D2) 1.25 MG Cap PO SCH (08:05)
[2023-05-20] MEDS: Lidocaine 4% 1 each Patch TOP SCH (08:06)
[2023-05-20] MEDS: Pantoprazole 40 MG Tab.CR PO SCH (08:06)
[2023-05-20] MEDS: Folic Acid 1 MG Tab PO SCH (08:06)
[2023-05-20] MEDS: DULoxetine 30 MG Cap PO SCH (08:06)
[2023-05-20] MEDS: Topiramate 25 MG Tab PO SCH ×2 (08:06→20:58)
[2023-05-20] MEDS: Levothyroxine 88 MCG Tab PO SCH (08:06)
[2023-05-20] MEDS: LORazepam 1 MG Tab PO SCH ×2 (08:06→20:59)
[2023-05-20] MEDS: Multivitamins with Iron/Calcium/Folic Acid/Minerals Tab PO SCH (08:06)
[2023-05-20] MEDS: Vitamin B6-pyridOXINE 50 MG Tab PO SCH (08:06)
[2023-05-20] MEDS: Calcium Carbonate/Vitamin D3 1500 MG-400 Units Tab PO SCH (08:06)
[2023-05-20] MEDS: VERIFY SCOP PATCH SCH (08:07)
[2023-05-20] MEDS: Acetaminophen/HYDROcodone 325-5 MG Tab PO PRN (18:22)
[2023-05-20] MEDS: Thiamine 100 MG Tab PO SCH (20:58)
[2023-05-20] MEDS: diphenhydrAMINE 25 MG Cap PO SCH (20:58)
[2023-05-20] MEDS: Haloperidol 5 MG Tab PO SCH (20:58)
[2023-05-21] MEDS: Acetaminophen/HYDROcodone 325-5 MG Tab PO PRN ×3 (05:20→19:28)
[2023-05-21] MEDS: Topiramate 25 MG Tab PO SCH ×2 (08:33→21:01)
[2023-05-21] MEDS: Amylase/Lipase/Protease 6,000 Unit Cap.CR PO SCH ×3 (08:34→18:09)
[2023-05-21] MEDS: Ascorbic Acid 500 MG Tab PO SCH (08:34)
[2023-05-21] MEDS: Levothyroxine 88 MCG Tab PO SCH (08:35)
[2023-05-21] MEDS: Multivitamins with Iron/Calcium/Folic Acid/Minerals Tab PO SCH (08:35)
[2023-05-21] MEDS: Magnesium Oxide 400 MG Tab PO SCH (08:35)
[2023-05-21] MEDS: Calcium Carbonate/Vitamin D3 1500 MG-400 Units Tab PO SCH (08:36)
[2023-05-21] MEDS: LORazepam 1 MG Tab PO SCH ×2 (08:36→20:59)
[2023-05-21] MEDS: Ergocalciferol (Vitamin D2) 1.25 MG Cap PO SCH (08:37)
[2023-05-21] MEDS: DULoxetine 30 MG Cap PO SCH (08:38)
[2023-05-21] MEDS: Pantoprazole 40 MG Tab.CR PO SCH (08:38)
[2023-05-21] MEDS: Vitamin B6-pyridOXINE 50 MG Tab PO SCH (08:38)
[2023-05-21] MEDS: Folic Acid 1 MG Tab PO SCH (08:39)
[2023-05-21] MEDS: Lidocaine 4% 1 each Patch TOP SCH (14:28)
[2023-05-21] MEDS: VERIFY SCOP PATCH SCH (14:29)
[2023-05-21] MEDS: Haloperidol 5 MG Tab PO SCH (20:59)
[2023-05-21] MEDS: diphenhydrAMINE 25 MG Cap PO SCH (20:59)
[2023-05-21] MEDS: Thiamine 100 MG Tab PO SCH (21:01)
[2023-05-22] MEDS: Lidocaine 4% 1 each Patch TOP SCH (08:34)
[2023-05-22] MEDS: LORazepam 1 MG Tab PO SCH ×2 (08:35→20:36)
[2023-05-22] MEDS: Magnesium Oxide 400 MG Tab PO SCH (08:35)
[2023-05-22] MEDS: Topiramate 25 MG Tab PO SCH ×2 (08:35→20:40)
[2023-05-22] MEDS: Multivitamins with Iron/Calcium/Folic Acid/Minerals Tab PO SCH (08:36)
[2023-05-22] MEDS: Calcium Carbonate/Vitamin D3 1500 MG-400 Units Tab PO SCH (08:36)
[2023-05-22] MEDS: Ascorbic Acid 500 MG Tab PO SCH (08:36)
[2023-05-22] MEDS: Vitamin B6-pyridOXINE 50 MG Tab PO SCH (08:36)
[2023-05-22] MEDS: DULoxetine 30 MG Cap PO SCH (08:36)
[2023-05-22] MEDS: Amylase/Lipase/Protease 6,000 Unit Cap.CR PO SCH ×3 (08:36→17:19)
[2023-05-22] MEDS: Folic Acid 1 MG Tab PO SCH (08:36)
[2023-05-22] MEDS: Pantoprazole 40 MG Tab.CR PO SCH (08:36)
[2023-05-22] MEDS: Levothyroxine 88 MCG Tab PO SCH (08:36)
[2023-05-22] MEDS: Ergocalciferol (Vitamin D2) 1.25 MG Cap PO SCH (08:36)
[2023-05-22] MEDS: Acetaminophen/HYDROcodone 325-5 MG Tab PO PRN ×2 (12:50→20:43)
[2023-05-22] MEDS: diphenhydrAMINE 25 MG Cap PO SCH (20:37)
[2023-05-22] MEDS: Haloperidol 5 MG Tab PO SCH (20:38)
[2023-05-22] MEDS: Thiamine 100 MG Tab PO SCH (20:41)
[2023-05-23] MEDS: Amylase/Lipase/Protease 6,000 Unit Cap.CR PO SCH ×3 (07:34→17:56)
[2023-05-23] MEDS: Levothyroxine 88 MCG Tab PO SCH (07:34)
[2023-05-23] MEDS: Multivitamins with Iron/Calcium/Folic Acid/Minerals Tab PO SCH (09:17)
[2023-05-23] MEDS: Vitamin B6-pyridOXINE 50 MG Tab PO SCH (09:17)
[2023-05-23] MEDS: Topiramate 25 MG Tab PO SCH (09:17)
[2023-05-23] MEDS: Ergocalciferol (Vitamin D2) 1.25 MG Cap PO SCH (09:17)
[2023-05-23] MEDS: DULoxetine 30 MG Cap PO SCH (09:18)
[2023-05-23] MEDS: Ascorbic Acid 500 MG Tab PO SCH (09:18)
[2023-05-23] MEDS: Folic Acid 1 MG Tab PO SCH (09:18)
[2023-05-23] MEDS: Pantoprazole 40 MG Tab.CR PO SCH (09:18)
[2023-05-23] MEDS: Calcium Carbonate/Vitamin D3 1500 MG-400 Units Tab PO SCH (09:18)
[2023-05-23] MEDS: Magnesium Oxide 400 MG Tab PO SCH (09:18)
[2023-05-23] MEDS: LORazepam 1 MG Tab PO SCH ×2 (09:19→20:06)
[2023-05-23] MEDS: Lidocaine 4% 1 each Patch TOP SCH (09:20)
[2023-05-23] MEDS: Haloperidol 5 MG Tab PO SCH (20:05)
[2023-05-23] MEDS: diphenhydrAMINE 25 MG Cap PO SCH (20:06)
[2023-05-23] MEDS: Thiamine 100 MG Tab PO SCH (20:07)
[2023-05-24] MEDS: LORazepam 1 MG Tab PO SCH ×2 (07:59→21:23)
[2023-05-24] MEDS: Amylase/Lipase/Protease 6,000 Unit Cap.CR PO SCH ×3 (08:00→17:18)
[2023-05-24] MEDS: Multivitamins with Iron/Calcium/Folic Acid/Minerals Tab PO SCH (08:00)
[2023-05-24] MEDS: DULoxetine 30 MG Cap PO SCH (08:01)
[2023-05-24] MEDS: Ascorbic Acid 500 MG Tab PO SCH (08:01)
[2023-05-24] MEDS: Folic Acid 1 MG Tab PO SCH (08:01)
[2023-05-24] MEDS: Calcium Carbonate/Vitamin D3 1500 MG-400 Units Tab PO SCH (08:01)
[2023-05-24] MEDS: Vitamin B6-pyridOXINE 50 MG Tab PO SCH (08:01)
[2023-05-24] MEDS: Ergocalciferol (Vitamin D2) 1.25 MG Cap PO SCH (08:01)
[2023-05-24] MEDS: Levothyroxine 88 MCG Tab PO SCH (08:01)
[2023-05-24] MEDS: Topiramate 25 MG Tab PO SCH ×2 (08:01→21:22)
[2023-05-24] MEDS: Pantoprazole 40 MG Tab.CR PO SCH (08:02)
[2023-05-24] MEDS: Magnesium Oxide 400 MG Tab PO SCH (08:02)
[2023-05-24] MEDS: Lidocaine 4% 1 each Patch TOP SCH (08:03)
[2023-05-24] MEDS: VERIFY SCOP PATCH SCH (08:21)
[2023-05-24] MEDS: Thiamine 100 MG Tab PO SCH (21:21)
[2023-05-24] MEDS: diphenhydrAMINE 25 MG Cap PO SCH (21:22)
[2023-05-24] MEDS: Haloperidol 5 MG Tab PO SCH (21:23)
[2023-05-24] MEDS: Acetaminophen/HYDROcodone 325-5 MG Tab PO PRN ×2 (22:56)
[2023-05-25] MEDS: Levothyroxine 88 MCG Tab PO SCH (07:59)
[2023-05-25] MEDS: Pantoprazole 40 MG Tab.CR PO SCH (08:00)
[2023-05-25] MEDS: LORazepam 1 MG Tab PO SCH ×2 (09:21→20:40)
[2023-05-25] MEDS: Amylase/Lipase/Protease 6,000 Unit Cap.CR PO SCH ×3 (09:22→19:08)
[2023-05-25] MEDS: Multivitamins with Iron/Calcium/Folic Acid/Minerals Tab PO SCH (09:22)
[2023-05-25] MEDS: Topiramate 25 MG Tab PO SCH ×2 (09:22→20:39)
[2023-05-25] MEDS: Magnesium Oxide 400 MG Tab PO SCH (09:22)
[2023-05-25] MEDS: Calcium Carbonate/Vitamin D3 1500 MG-400 Units Tab PO SCH (09:23)
[2023-05-25] MEDS: Folic Acid 1 MG Tab PO SCH (09:23)
[2023-05-25] MEDS: Ascorbic Acid 500 MG Tab PO SCH (09:23)
[2023-05-25] MEDS: Vitamin B6-pyridOXINE 50 MG Tab PO SCH (09:23)
[2023-05-25] MEDS: Ergocalciferol (Vitamin D2) 1.25 MG Cap PO SCH (09:23)
[2023-05-25] MEDS: Lidocaine 4% 1 each Patch TOP SCH (09:24)
[2023-05-25] MEDS: DULoxetine 30 MG Cap PO SCH (09:24)
[2023-05-25] MEDS: Acetaminophen/HYDROcodone 325-5 MG Tab PO PRN (13:49)
[2023-05-25] MEDS: Thiamine 100 MG Tab PO SCH (20:39)
[2023-05-25] MEDS: diphenhydrAMINE 25 MG Cap PO SCH (20:39)
[2023-05-25] MEDS: Haloperidol 5 MG Tab PO SCH (20:40)
[2023-05-26] MEDS: Acetaminophen/HYDROcodone 325-5 MG Tab PO PRN ×3 (02:29→21:16)
[2023-05-26] MEDS: Acetaminophen 325 MG Tab PO PRN (06:12)
[2023-05-26] MEDS: VERIFY SCOP PATCH SCH ×2 (08:08→10:06)
[2023-05-26] MEDS: Pantoprazole 40 MG Tab.CR PO SCH (08:08)
[2023-05-26] MEDS: Levothyroxine 88 MCG Tab PO SCH (08:08)
[2023-05-26] MEDS: LORazepam 1 MG Tab PO SCH (09:58)
[2023-05-26] MEDS: Calcium Carbonate/Vitamin D3 1500 MG-400 Units Tab PO SCH (10:00)
[2023-05-26] MEDS: Ergocalciferol (Vitamin D2) 1.25 MG Cap PO SCH (10:01)
[2023-05-26] MEDS: DULoxetine 30 MG Cap PO SCH (10:01)
[2023-05-26] MEDS: Magnesium Oxide 400 MG Tab PO SCH (10:01)
[2023-05-26] MEDS: Folic Acid 1 MG Tab PO SCH (10:02)
[2023-05-26] MEDS: Multivitamins with Iron/Calcium/Folic Acid/Minerals Tab PO SCH (10:02)
[2023-05-26] MEDS: Amylase/Lipase/Protease 6,000 Unit Cap.CR PO SCH ×3 (10:02→17:01)
[2023-05-26] MEDS: Ascorbic Acid 500 MG Tab PO SCH (10:03)
[2023-05-26] MEDS: Vitamin B6-pyridOXINE 50 MG Tab PO SCH (10:04)
[2023-05-26] MEDS: Topiramate 25 MG Tab PO SCH ×2 (10:05→21:17)
[2023-05-26] MEDS: Lidocaine 4% 1 each Patch TOP SCH (10:07)
[2023-05-26] MEDS: Scopalamine 1mg/3day Transdermal Patch TRDERM PRN (10:12)
[2023-05-26 13:51] LABS: COPPER,SERUM/PLASMA 76.4 ug/dL (80.0-155.0)
[2023-05-26] MEDS: diphenhydrAMINE 25 MG Cap PO SCH (21:14)
[2023-05-26] MEDS: LORazepam 0.5 MG Tab PO SCH (21:14)
[2023-05-26] MEDS: Haloperidol 5 MG Tab PO SCH (21:15)
[2023-05-26] MEDS: Thiamine 100 MG Tab PO SCH (21:18)
[2023-05-27] MEDS: Lidocaine 4% 1 each Patch TOP SCH (01:30)
[2023-05-27] MEDS: Levothyroxine 88 MCG Tab PO SCH (08:00)
[2023-05-27] MEDS: Pantoprazole 40 MG Tab.CR PO SCH (08:00)
[2023-05-27] MEDS: Amylase/Lipase/Protease 6,000 Unit Cap.CR PO SCH ×3 (13:12→17:51)
[2023-05-27] MEDS: Acetaminophen/HYDROcodone 325-5 MG Tab PO PRN (13:36)
[2023-05-27] MEDS: Topiramate 25 MG Tab PO SCH ×3 (13:36→21:41)
[2023-05-27] MEDS: Vitamin B6-pyridOXINE 50 MG Tab PO SCH (13:36)
[2023-05-27] MEDS: LORazepam 0.5 MG Tab PO SCH ×2 (13:36→21:34)
[2023-05-27] MEDS: Multivitamins with Iron/Calcium/Folic Acid/Minerals Tab PO SCH (13:37)
[2023-05-27] MEDS: Ergocalciferol (Vitamin D2) 1.25 MG Cap PO SCH (13:37)
[2023-05-27] MEDS: Folic Acid 1 MG Tab PO SCH (13:37)
[2023-05-27] MEDS: DULoxetine 30 MG Cap PO SCH (13:37)
[2023-05-27] MEDS: Ascorbic Acid 500 MG Tab PO SCH (13:37)
[2023-05-27] MEDS: Magnesium Oxide 400 MG Tab PO SCH (13:37)
[2023-05-27] MEDS: Calcium Carbonate/Vitamin D3 1500 MG-400 Units Tab PO SCH (13:37)
[2023-05-27] MEDS: VERIFY SCOP PATCH SCH (17:52)
[2023-05-27] MEDS: Thiamine 100 MG Tab PO SCH (21:34)
[2023-05-27] MEDS: diphenhydrAMINE 25 MG Cap PO SCH (21:34)
[2023-05-27] MEDS: Haloperidol 5 MG Tab PO SCH (21:35)
[2023-05-28] MEDS: Ergocalciferol (Vitamin D2) 1.25 MG Cap PO SCH (08:54)
[2023-05-28] MEDS: Vitamin B6-pyridOXINE 50 MG Tab PO SCH (08:54)
[2023-05-28] MEDS: Multivitamins with Iron/Calcium/Folic Acid/Minerals Tab PO SCH (08:54)
[2023-05-28] MEDS: LORazepam 0.5 MG Tab PO SCH ×2 (08:54→20:39)
[2023-05-28] MEDS: Pantoprazole 40 MG Tab.CR PO SCH (08:55)
[2023-05-28] MEDS: Ascorbic Acid 500 MG Tab PO SCH (08:55)
[2023-05-28] MEDS: Levothyroxine 88 MCG Tab PO SCH (08:55)
[2023-05-28] MEDS: DULoxetine 30 MG Cap PO SCH (08:55)
[2023-05-28] MEDS: Topiramate 25 MG Tab PO SCH ×2 (08:55→20:39)
[2023-05-28] MEDS: Magnesium Oxide 400 MG Tab PO SCH (08:56)
[2023-05-28] MEDS: Amylase/Lipase/Protease 6,000 Unit Cap.CR PO SCH ×3 (08:56→19:05)
[2023-05-28] MEDS: Folic Acid 1 MG Tab PO SCH (08:56)
[2023-05-28] MEDS: Lidocaine 4% 1 each Patch TOP SCH (08:56)
[2023-05-28] MEDS: Calcium Carbonate/Vitamin D3 1500 MG-400 Units Tab PO SCH (09:02)
[2023-05-28] MEDS: VERIFY SCOP PATCH SCH (09:02)
[2023-05-28] MEDS: Thiamine 100 MG Tab PO SCH (20:39)
[2023-05-28] MEDS: Haloperidol 5 MG Tab PO SCH (20:39)
[2023-05-28] MEDS: Acetaminophen/HYDROcodone 325-5 MG Tab PO PRN (20:39)
[2023-05-28] MEDS: diphenhydrAMINE 25 MG Cap PO SCH (20:39)
[2023-05-29] MEDS: Pantoprazole 40 MG Tab.CR PO SCH (08:53)
[2023-05-29] MEDS: Amylase/Lipase/Protease 6,000 Unit Cap.CR PO SCH ×2 (08:53→20:37)
[2023-05-29] MEDS: Levothyroxine 88 MCG Tab PO SCH (08:53)
[2023-05-29] MEDS: Folic Acid 1 MG Tab PO SCH (08:53)
[2023-05-29] MEDS: Ascorbic Acid 500 MG Tab PO SCH (08:54)
[2023-05-29] MEDS: Calcium Carbonate/Vitamin D3 1500 MG-400 Units Tab PO SCH (08:54)
[2023-05-29] MEDS: Topiramate 25 MG Tab PO SCH ×2 (08:55→20:38)
[2023-05-29] MEDS: Multivitamins with Iron/Calcium/Folic Acid/Minerals Tab PO SCH (08:55)
[2023-05-29] MEDS: Vitamin B6-pyridOXINE 50 MG Tab PO SCH (08:56)
[2023-05-29] MEDS: Magnesium Oxide 400 MG Tab PO SCH (08:56)
[2023-05-29] MEDS: Ergocalciferol (Vitamin D2) 1.25 MG Cap PO SCH (08:56)
[2023-05-29] MEDS: DULoxetine 30 MG Cap PO SCH (08:56)
[2023-05-29] MEDS: VERIFY SCOP PATCH SCH (08:58)
[2023-05-29] MEDS: Lidocaine 4% 1 each Patch TOP SCH (08:58)
[2023-05-29] MEDS: LORazepam 0.5 MG Tab PO SCH ×2 (09:05→20:35)
[2023-05-29] MEDS: Cupric Chloride 2 MG in Sodium Chloride 0.9% 250 ML IV SCH (10:11)
[2023-05-29] MEDS: diphenhydrAMINE 25 MG Cap PO SCH (20:35)
[2023-05-29] MEDS: Haloperidol 5 MG Tab PO SCH (20:37)
[2023-05-29] MEDS: Acetaminophen/HYDROcodone 325-5 MG Tab PO PRN (20:44)
[2023-05-29] MEDS: Thiamine 100 MG Tab PO SCH (20:45)
[2023-05-30] MEDS: Cupric Chloride 2 MG in Sodium Chloride 0.9% 250 ML IV SCH (08:20)
[2023-05-30] MEDS: LORazepam 0.5 MG Tab PO SCH ×2 (09:25→21:06)
[2023-05-30] MEDS: Multivitamins with Iron/Calcium/Folic Acid/Minerals Tab PO SCH (09:26)
[2023-05-30] MEDS: Vitamin B6-pyridOXINE 50 MG Tab PO SCH (09:26)
[2023-05-30] MEDS: Amylase/Lipase/Protease 6,000 Unit Cap.CR PO SCH ×3 (09:26→19:07)
[2023-05-30] MEDS: Folic Acid 1 MG Tab PO SCH (09:26)
[2023-05-30] MEDS: Ascorbic Acid 500 MG Tab PO SCH (09:26)
[2023-05-30] MEDS: DULoxetine 30 MG Cap PO SCH (09:26)
[2023-05-30] MEDS: Topiramate 25 MG Tab PO SCH ×2 (09:26→21:06)
[2023-05-30] MEDS: Magnesium Oxide 400 MG Tab PO SCH (09:26)
[2023-05-30] MEDS: Levothyroxine 88 MCG Tab PO SCH (09:26)
[2023-05-30] MEDS: Lidocaine 4% 1 each Patch TOP SCH (09:27)
[2023-05-30] MEDS: Calcium Carbonate/Vitamin D3 1500 MG-400 Units Tab PO SCH (09:27)
[2023-05-30] MEDS: Ergocalciferol (Vitamin D2) 1.25 MG Cap PO SCH (09:27)
[2023-05-30] MEDS: Pantoprazole 40 MG Tab.CR PO SCH (09:27)
[2023-05-30] MEDS: Vitamin A 100,000 Units/2 ML SDV IM SCH (09:28)
[2023-05-30] MEDS: VERIFY SCOP PATCH SCH (09:30)
[2023-05-30] MEDS: Acetaminophen/HYDROcodone 325-5 MG Tab PO PRN (19:05)
[2023-05-30] MEDS: diphenhydrAMINE 25 MG Cap PO SCH (21:06)
[2023-05-30] MEDS: Thiamine 100 MG Tab PO SCH (21:06)
[2023-05-30] MEDS: Haloperidol 5 MG Tab PO SCH (21:06)
[2023-05-31 05:56] LABS: BASOPHILS ABSOLUTE AUTO 0.03 K/uL (0.00-0.10); BASOPHILS PERCENT AUTO 0.6 % (0.1-1.3); EOSINOPHILS ABSOLUTE AUTO 0.18 K/uL (0.00-0.40); EOSINOPHILS PERCENT AUTO 3.5 % (0.0-5.4); HEMATOCRIT 32.7 % (34.3-46.0); HEMOGLOBIN 10.2 g/dL (11.2-15.5); IMMATURE GRAN ABSOLUTE AUTO 0.03 K/uL (0.00-0.23); IMMATURE GRAN PERCENT AUTO 0.6 % (0.0-0.7); LYMPHOCYTES ABSOLUTE AUTO 1.87 K/uL (0.8-3.3); LYMPHOCYTES PERCENT AUTO 36.5 % (11.4-47.7); MEAN CORPUSCULAR HEMOGLOBIN 30.4 pg (31.6-35.5); MEAN CORPUSCULAR HGB CONC 31.2 g/dL (31.6-35.5); MEAN CORPUSCULAR VOLUME 97.6 fL (81.4-99.0); MONOCYTES ABSOLUTE AUTO 0.56 K/uL (0.20-0.90); MONOCYTES PERCENT AUTO 10.9 % (3.3-12.6); NEUTROPHILS ABSOLUTE AUTO 2.46 K/uL (1.0-7.6); NEUTROPHILS PERCENT AUTO 47.9 % (40.0-78.1); PLATELET COUNT,PLT 186 K/uL (130-375); RED BLOOD CELL COUNT 3.35 M/uL (3.77-5.24); WHITE BLOOD CELL COUNT,WBC 5.1 K/uL (3.2-11.0)
[2023-05-31 06:24] LABS: A/G RATIO 1.2 (1.2-2.2); ALANINE AMINOTRANSFERASE,ALT 28 U/L (12-78); ALKALINE PHOSPHATASE 60 U/L (46-116); ANION GAP 11.1 mmol/L (5.0-14.0); ASPARTATE AMNIOTRANSFERASE,AST 22 U/L (15-37); BILIRUBIN TOTAL 0.9 mg/dL (0.2-1.0); BLOOD UREA NITROGEN,BUN 20 mg/dL (7-18); CALCIUM 7.9 mg/dL (8.5-10.1); CARBON DIOXIDE,CO2 25 mmol/L (21-32); CHLORIDE,CL 109 mmol/L (100-108); CREATININE 0.8 mg/dL (0.6-1.0); EST CRCL DRUG DOSING (CG) 72.72 mL/min; ESTIMATED GFR 84 mL/min (>60); GLUCOSE RANDOM 80 mg/dL (74-106); POTASSIUM,K 4.1 mmol/L (3.6-5.2); PROTEIN TOTAL,TP 5.6 g/dL (6.4-8.2); SODIUM,NA 141 mmol/L (140-148); TSH ULTRASENSITIVE 4.892 uIU/mL (0.358-3.740)
[2023-05-31] MEDS: LORazepam 0.5 MG Tab PO SCH ×2 (08:04→20:44)
[2023-05-31] MEDS: Vitamin B6-pyridOXINE 50 MG Tab PO SCH (08:05)
[2023-05-31] MEDS: Topiramate 25 MG Tab PO SCH ×2 (08:05→20:46)
[2023-05-31] MEDS: Levothyroxine 88 MCG Tab PO SCH (08:05)
[2023-05-31] MEDS: DULoxetine 30 MG Cap PO SCH (08:05)
[2023-05-31] MEDS: Ergocalciferol (Vitamin D2) 1.25 MG Cap PO SCH (08:05)
[2023-05-31] MEDS: Magnesium Oxide 400 MG Tab PO SCH (08:05)
[2023-05-31] MEDS: Pantoprazole 40 MG Tab.CR PO SCH (08:05)
[2023-05-31] MEDS: Ascorbic Acid 500 MG Tab PO SCH (08:05)
[2023-05-31] MEDS: Amylase/Lipase/Protease 6,000 Unit Cap.CR PO SCH ×3 (08:05→17:52)
[2023-05-31] MEDS: Multivitamins with Iron/Calcium/Folic Acid/Minerals Tab PO SCH (08:06)
[2023-05-31] MEDS: Calcium Carbonate/Vitamin D3 1500 MG-400 Units Tab PO SCH (08:06)
[2023-05-31] MEDS: Lidocaine 4% 1 each Patch TOP SCH (08:06)
[2023-05-31] MEDS: Folic Acid 1 MG Tab PO SCH (08:06)
[2023-05-31] MEDS: VERIFY SCOP PATCH SCH (08:15)
[2023-05-31] MEDS: Acetaminophen/HYDROcodone 325-5 MG Tab PO PRN ×2 (09:07→20:47)
[2023-05-31] MEDS: Scopalamine 1mg/3day Transdermal Patch TRDERM PRN (09:07)
[2023-05-31] MEDS: Cupric Chloride 2 MG in Sodium Chloride 0.9% 250 ML IV SCH (09:27)
[2023-05-31 14:01] LABS: BILIRUBIN,URINE NEGATIVE (NEGATIVE); COLOR,URINE YELLOW (YELLOW); GLUCOSE,URINE NEGATIVE (NEGATIVE); KETONES,URINE NEGATIVE (NEGATIVE); LEUKOCYTE ESTERASE,URINE SMALL (NEGATIVE); NITRITE,URINE NEGATIVE (NEGATIVE); OCCULT BLOOD,URINE NEGATIVE (NEGATIVE); PH,URINE 5.5 (5.0-8.0); PROTEIN,URINE NEGATIVE (NEGATIVE); UROBILINOGEN,URINE 0.2 EU/dL (0.2-1.0)
[2023-05-31 14:09] LABS: AMORPHOUS SEDIMENT,URINE NOT SEEN; APPEARANCE,URINE CLOUDY (CLEAR); BACTERIA,URINE MODERATE; EPITHELIAL CELLS,URINE FEW; MUCUS,URINE NOT SEEN; RBC,URINE 0-5 (0-5)
[2023-05-31] MEDS: diphenhydrAMINE 25 MG Cap PO SCH (20:45)
[2023-05-31] MEDS: Haloperidol 5 MG Tab PO SCH (20:45)
[2023-05-31] MEDS: Thiamine 100 MG Tab PO SCH (20:47)
[2023-06-01] MEDS: LORazepam 0.5 MG Tab PO SCH ×2 (08:02→21:22)
[2023-06-01] MEDS: DULoxetine 30 MG Cap PO SCH (08:03)
[2023-06-01] MEDS: Multivitamins with Iron/Calcium/Folic Acid/Minerals Tab PO SCH (08:03)
[2023-06-01] MEDS: Folic Acid 1 MG Tab PO SCH (08:03)
[2023-06-01] MEDS: Ergocalciferol (Vitamin D2) 1.25 MG Cap PO SCH (08:03)
[2023-06-01] MEDS: Calcium Carbonate/Vitamin D3 1500 MG-400 Units Tab PO SCH (08:03)
[2023-06-01] MEDS: Pantoprazole 40 MG Tab.CR PO SCH (08:03)
[2023-06-01] MEDS: Amylase/Lipase/Protease 6,000 Unit Cap.CR PO SCH ×3 (08:03→18:35)
[2023-06-01] MEDS: Magnesium Oxide 400 MG Tab PO SCH (08:03)
[2023-06-01] MEDS: Vitamin B6-pyridOXINE 50 MG Tab PO SCH (08:03)
[2023-06-01] MEDS: Topiramate 25 MG Tab PO SCH ×2 (08:03→21:21)
[2023-06-01] MEDS: Ascorbic Acid 500 MG Tab PO SCH (08:03)
[2023-06-01] MEDS: Levothyroxine 88 MCG Tab PO SCH (08:03)
[2023-06-01] MEDS: Lidocaine 4% 1 each Patch TOP SCH (08:04)
[2023-06-01] MEDS: VERIFY SCOP PATCH SCH (08:26)
[2023-06-01] MEDS: Acetaminophen/HYDROcodone 325-5 MG Tab PO PRN (12:34)
[2023-06-01] MEDS: Haloperidol 5 MG Tab PO SCH (21:21)
[2023-06-01] MEDS: diphenhydrAMINE 25 MG Cap PO SCH (21:22)
[2023-06-01] MEDS: Thiamine 100 MG Tab PO SCH (21:23)
[2023-06-02] MEDS: Calcium Carbonate/Vitamin D3 1500 MG-400 Units Tab PO SCH (08:10)
[2023-06-02] MEDS: Ascorbic Acid 500 MG Tab PO SCH (08:10)
[2023-06-02] MEDS: DULoxetine 30 MG Cap PO SCH (08:10)
[2023-06-02] MEDS: Pantoprazole 40 MG Tab.CR PO SCH (08:10)
[2023-06-02] MEDS: Ergocalciferol (Vitamin D2) 1.25 MG Cap PO SCH (08:10)
[2023-06-02] MEDS: Levothyroxine 88 MCG Tab PO SCH (08:10)
[2023-06-02] MEDS: Amylase/Lipase/Protease 6,000 Unit Cap.CR PO SCH ×3 (08:10→17:34)
[2023-06-02] MEDS: Magnesium Oxide 400 MG Tab PO SCH (08:10)
[2023-06-02] MEDS: Multivitamins with Iron/Calcium/Folic Acid/Minerals Tab PO SCH (08:10)
[2023-06-02] MEDS: Folic Acid 1 MG Tab PO SCH (08:10)
[2023-06-02] MEDS: Lidocaine 4% 1 each Patch TOP SCH (08:11)
[2023-06-02] MEDS: Topiramate 25 MG Tab PO SCH ×2 (08:11→21:03)
[2023-06-02] MEDS: LORazepam 0.5 MG Tab PO SCH ×2 (08:11→21:03)
[2023-06-02] MEDS: Acetaminophen/HYDROcodone 325-5 MG Tab PO PRN (08:11)
[2023-06-02] MEDS: Vitamin B6-pyridOXINE 50 MG Tab PO SCH (08:11)
[2023-06-02] MEDS: VERIFY SCOP PATCH SCH (08:12)
[2023-06-02] MEDS: Haloperidol 5 MG Tab PO SCH (21:03)
[2023-06-02] MEDS: diphenhydrAMINE 25 MG Cap PO SCH (21:03)
[2023-06-02] MEDS: Thiamine 100 MG Tab PO SCH (21:03)
[2023-06-03] MEDS: LORazepam 0.5 MG Tab PO SCH ×2 (08:25→22:00)
[2023-06-03] MEDS: Multivitamins with Iron/Calcium/Folic Acid/Minerals Tab PO SCH (08:26)
[2023-06-03] MEDS: Topiramate 25 MG Tab PO SCH ×2 (08:26→21:59)
[2023-06-03] MEDS: Folic Acid 1 MG Tab PO SCH (08:26)
[2023-06-03] MEDS: Amylase/Lipase/Protease 6,000 Unit Cap.CR PO SCH ×3 (08:26→18:09)
[2023-06-03] MEDS: Levothyroxine 88 MCG Tab PO SCH (08:26)
[2023-06-03] MEDS: Calcium Carbonate/Vitamin D3 1500 MG-400 Units Tab PO SCH (08:27)
[2023-06-03] MEDS: Ergocalciferol (Vitamin D2) 1.25 MG Cap PO SCH (08:27)
[2023-06-03] MEDS: Lidocaine 4% 1 each Patch TOP SCH (08:27)
[2023-06-03] MEDS: Magnesium Oxide 400 MG Tab PO SCH (08:27)
[2023-06-03] MEDS: Pantoprazole 40 MG Tab.CR PO SCH (08:27)
[2023-06-03] MEDS: DULoxetine 30 MG Cap PO SCH (08:27)
[2023-06-03] MEDS: Vitamin B6-pyridOXINE 50 MG Tab PO SCH (08:27)
[2023-06-03] MEDS: Ascorbic Acid 500 MG Tab PO SCH (09:27)
[2023-06-03] MEDS: VERIFY SCOP PATCH SCH (09:27)
[2023-06-03] MEDS: Acetaminophen/HYDROcodone 325-5 MG Tab PO PRN (14:47)
[2023-06-03] MEDS: diphenhydrAMINE 25 MG Cap PO SCH (21:59)
[2023-06-03] MEDS: Thiamine 100 MG Tab PO SCH (22:00)
[2023-06-03] MEDS: Haloperidol 5 MG Tab PO SCH (22:00)
[2023-06-04] MEDS: Ascorbic Acid 500 MG Tab PO SCH (08:09)
[2023-06-04] MEDS: Ergocalciferol (Vitamin D2) 1.25 MG Cap PO SCH (08:09)
[2023-06-04] MEDS: Calcium Carbonate/Vitamin D3 1500 MG-400 Units Tab PO SCH (08:09)
[2023-06-04] MEDS: Topiramate 25 MG Tab PO SCH ×2 (08:09→21:46)
[2023-06-04] MEDS: Levothyroxine 88 MCG Tab PO SCH (08:09)
[2023-06-04] MEDS: Multivitamins with Iron/Calcium/Folic Acid/Minerals Tab PO SCH (08:09)
[2023-06-04] MEDS: Amylase/Lipase/Protease 6,000 Unit Cap.CR PO SCH ×3 (08:09→18:28)
[2023-06-04] MEDS: Pantoprazole 40 MG Tab.CR PO SCH (08:10)
[2023-06-04] MEDS: LORazepam 0.5 MG Tab PO SCH ×2 (08:10→20:14)
[2023-06-04] MEDS: Folic Acid 1 MG Tab PO SCH (08:10)
[2023-06-04] MEDS: Magnesium Oxide 400 MG Tab PO SCH (08:10)
[2023-06-04] MEDS: Lidocaine 4% 1 each Patch TOP SCH (08:10)
[2023-06-04] MEDS: DULoxetine 30 MG Cap PO SCH (08:10)
[2023-06-04] MEDS: Vitamin B6-pyridOXINE 50 MG Tab PO SCH (08:10)
[2023-06-04] MEDS: VERIFY SCOP PATCH SCH (08:11)
[2023-06-04] MEDS: Acetaminophen/HYDROcodone 325-5 MG Tab PO PRN ×2 (09:23→18:30)
[2023-06-04] MEDS: diphenhydrAMINE 25 MG Cap PO SCH (20:14)
[2023-06-04] MEDS: Haloperidol 5 MG Tab PO SCH (20:14)
[2023-06-04] MEDS: Thiamine 100 MG Tab PO SCH (20:15)
[2023-06-05 08:18] VITALS: BP 93/65; PULSE 85
[2023-06-05] MEDS: LORazepam 0.5 MG Tab PO SCH (08:19)
[2023-06-05] MEDS: Calcium Carbonate/Vitamin D3 1500 MG-400 Units Tab PO SCH (08:20)
[2023-06-05] MEDS: Amylase/Lipase/Protease 6,000 Unit Cap.CR PO SCH ×2 (08:20→14:01)
[2023-06-05] MEDS: Folic Acid 1 MG Tab PO SCH (08:21)
[2023-06-05] MEDS: DULoxetine 30 MG Cap PO SCH (08:21)
[2023-06-05] MEDS: Magnesium Oxide 400 MG Tab PO SCH (08:22)
[2023-06-05] MEDS: Pantoprazole 40 MG Tab.CR PO SCH (08:23)
[2023-06-05] MEDS: Levothyroxine 88 MCG Tab PO SCH (08:23)
[2023-06-05] MEDS: Multivitamins with Iron/Calcium/Folic Acid/Minerals Tab PO SCH (08:23)
[2023-06-05] MEDS: Lidocaine 4% 1 each Patch TOP SCH (08:23)
[2023-06-05] MEDS: Topiramate 25 MG Tab PO SCH (08:24)
[2023-06-05] MEDS: Vitamin B6-pyridOXINE 50 MG Tab PO SCH (08:25)
[2023-06-05] MEDS: Ascorbic Acid 500 MG Tab PO SCH (08:25)
[2023-06-05] MEDS: Ergocalciferol (Vitamin D2) 1.25 MG Cap PO SCH (08:25)
[2023-06-27] MEDS ORDERED: Cupric Chloride 2 MG in Sodium Chloride 0.9% 250 ML IV SCH (09:00)
== END 2023-06-05 19:50 | disposition home or self-care (01) ==
LOC: JP.ED 16:04
DX: S93.601A Unspecified sprain of right foot, initial encounter (principal); M79.621 Pain in right upper arm; M06.9 Rheumatoid arthritis, unspecified; K50.919 Crohn's disease, unspecified, with unspecified complications; G89.29 Other chronic pain; M54.9 Dorsalgia, unspecified; M54.2 Cervicalgia; M79.89 Other specified soft tissue disorders; F29 Unspecified psychosis not due to a substance or known physiological condition; N39.0 Urinary tract infection, site not specified; I25.10 Atherosclerotic heart disease of native coronary artery without angina pectoris; E78.00 Pure hypercholesterolemia, unspecified; J45.909 Unspecified asthma, uncomplicated; E03.9 Hypothyroidism, unspecified; Z88.8 Allergy status to other drugs, medicaments and biological substances; Z88.5 Allergy status to narcotic agent; Z91.048 Other nonmedicinal substance allergy status; Z79.82 Long term (current) use of aspirin; Z79.899 Other long term (current) drug therapy; Z20.822 Contact with and (suspected) exposure to COVID-19
CPT/HCPCS: 0241U; 36415; 72128; 72131; 73206; 73620; 76377; 80048; 80053; 80143; 80179; 80305; 80307; 81001; 82272; 82525; 82550; 82607; 82728; 82746; 83550; 83605; 84443; 85018; 85025; 85027; 86140; 86431; 87086; 87088; 87186; 93005; 93971; 96361; 96365; 96366; 96372; 97161; 97162; 99285; A9270; J0696; J1630; J1642; J1650; J2060; J3490; J7040; J7050; J7120; J7512; Q0162; Q9967; U0002